=== PATIENT | male | born 1960 | race Caucasian/White ===

== ENCOUNTER 2017-10-18 16:52 | Emergency (ER) | payer OTHER, SELFPAY ==
[2017-10-18 16:57] VITALS: BP 164/92; PULSE 59; RESP 18; O2SAT 97
--- NOTE | 2017-10-18 17:08 | DI.CT.S_ITS ---
PROCEDURE: CT HEAD/BRAIN WO CON INDICATIONS: one day right homonymous hemianopia TECHNIQUE: Noncontrast 4.5 mm thick angled axial sections acquired from the foramen magnum to the vertex, with coronal and sagittal reformats. For radiation dose reduction, the following was used: automated exposure control, adjustment of mA and/or kV according to patient size. COMPARISON: None. FINDINGS: Image quality: Excellent. CSF spaces: Basal cisterns are patent. No extra-axial fluid collections. Ventricles are normal in size and shape. Brain: No intracranial hemorrhage, mass, or mass effect. Mayers-white matter interface is preserved. No discrete suprasellar mass identified. Skull and face: Calvarium and visualized facial bones are intact, without suspicious lesions. The globes appear intact and symmetric with the orbits. No intraorbital mass lesions or fluid collections identified. Sinuses: Visualized sinuses and mastoids are clear. IMPRESSION: 1. No acute intracranial abnormality. 2. No definite mass identified within orbits or suprasellar regions. If clinical concern persists, further evaluation may be obtained with MRI. Dictated by: Naif Bailon M.D. on 10/18/2017 at 17:34 Approved by: Naif Bailon M.D. on 10/18/2017 at 17:37
--- NOTE | 2017-10-18 17:28 | PC.NURSE ---
Yesterday at approx 0730 pt experienced daniel spot in right eye. It has been intermittent since. x2 today,more of black area in right eye. Pt saw eye doctor and was told everything was fine with his eyes and he should go to the ED.
[2017-10-18 17:46] LABS: Add Manual Diff / Slide Review NO; Basophils Percent Auto 0.7 % (0-2); Hematocrit 42.9 % (41-53); Hemoglobin 14.7 g/dL (13.5-17.5); Lymphocytes Percent Auto 39.7 % (25-40); Mean Corpuscular HGB Conc 34.2 % (30-36); Mean Corpuscular Volume 93.6 fL (80-100); Monocytes Percent Auto 8.5 % (3-14); Neutrophils Absolute Auto 3900 /uL (3000-5900); Neutrophils Percent Auto 47.1 % (50-75); Platelet Count 232 X10^3/uL (150-400); Red Blood Cell Count 4.59 X10^6/uL (4.5-5.9); Red Cell Distribution Width 13.2 % (11.6-14.8); White Blood Cell Count 8.3 X10^3/uL (4.5-11.0)
[2017-10-18 17:57] LABS: Blood Urea Nitrogen 22 mg/dL (9-20); Calcium 9.4 mg/dL (8.4-10.2); Carbon Dioxide 26 mmol/L (22-32); Chloride 101 mmol/L (98-107); Estimated Glomerular Filt Rate > 60.0 mL/min (>60); Glucose 85 mg/dL (70-100); HEMOLYSIS 18 (0-50); Potassium 3.9 mmol/L (3.4-5.1); Sodium 141 mmol/L (137-145)
[2017-10-18 17:58] VITALS: BP 135/75; PULSE 54; RESP 21; O2SAT 98
--- NOTE | 2017-10-18 18:16 | ED.NEUROSD ---
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 Yesterday at about 7 in the morning the patient was out jogging and developed some right lateral visual field deficit. He states that his peripheral vision on the right side was compromised. He denies double vision or speech trouble. He denies any other focal neurologic findings such as facial weakness, numbness or tingling nor extremity weakness. Related Data Home Medications Medication Instructions Recorded Confirmed adalimumab [Humira Pen] 1 dose SUB-Q Q2W 10/18/17 10/18/17 betamethasone dipropionate 1 applic TOPICAL DIRECTED 10/18/17 10/18/17 Allergies Allergy/AdvReac Type Severity Reaction Status Date / Time No Known Drug Allergies Allergy Verified 10/18/17 16:57 Review of Systems Review of Systems All systems reviewed & are unremarkable except as noted in HPI and below Constitutional Denies chills, Denies fever(s), Denies lethargy and Denies weakness Eyes Denies change in vision, Denies eye discharge, Denies irritation, Reports loss of peripheral vision, Denies loss of vision and Reports other visual disturbances ENT Ears, Nose, Mouth, and Throat: Denies abnormal hearing, Denies change in voice, Denies neck pain and Denies sore throat Cardiovascular Denies chest pain, Denies irregular heart rhythm, Denies lightheadedness, Denies palpitations, Denies dyspnea, Denies dyspnea on exertion and Denies orthopnea Respiratory Denies cough, Denies dyspnea, Denies dyspnea on exertion and Denies wheezing Gastrointestinal Gastrointestinal: Denies abdominal pain, Denies change in bowel habits, Denies diarrhea, Denies nausea and Denies vomiting Genitourinary Denies hematuria, Denies flank pain, Denies urinary incontinence and Denies urinary urgency Musculoskeletal Denies neck pain Integumentary/Breasts Denies pruritus, Denies erythema, Denies rash and Denies wounds Neurologic Denies abnormal hearing, Denies abnormal movements, Denies confusion, Denies loss of vision, Denies convulsions, Denies seizure-like activity, Denies sensory deficit and Denies weakness Psychiatric Denies anxiety, Denies confusion, Denies depression, Denies homicidal ideation and Denies suicidal ideation Endocrine Denies palpitations Hematologic/Lymphatic Denies easy bruising Allergic/Immunologic Denies wheezing Exam Initial Vital Signs Initial Vital Signs: Vital Signs Pulse Rate 59 L 10/18/17 16:57 Respiratory Rate 18 10/18/17 16:57 Blood Pressure 164/92 H 10/18/17 16:57 Pulse Oximetry 97 10/18/17 16:57 Const General: cooperative and well developed Nutritional Appearance: well nourished Orientation: alert, awake, oriented x3 and not confused [facility] Head: normocephalic and atraumatic Ears: external ears normal and TM's normal bilaterally Nose: external nose normal and No nasal discharge Face and sinus: sinuses nontender, face symmetric, no sinus tenderness and No dry mucous membranes Mouth: oral mucosae normal and moist mucous membranes Teeth and gingiva: dentition normal Throat: tonsils normal and uvula midline Eyes General: appearance normal, both eyes and all related structures Eyelids: eyelids normal Conjunctivae: conjunctivae normal Sclera: sclerae normal Pupils: PERRL EOM: EOM intact bilaterally Neck Neck: normal visual inspection, trachea midline, No lymphadenopathy, No midline deformity and No JVD Lymphatic: No lymphedema Chest Chest: normal inspection of the chest Resp Effort & Inspection: normal respiratory effort, able to speak in complete sentences, no respiratory distress and no use of accessory muscles Auscultation: clear to auscultation bilaterally, no rales, no rhonchi and no wheezes Cardio Rate: regular rate Rhythm: regular rhythm Heart Sounds: no click, no gallops, no murmurs and no rubs Pulses: normal peripheral pulses GI Inspection: non-distended Palpation: soft, no hepatosplenomegaly, No guarding, No pulsatile mass and No tender Auscultation: normal bowel sounds Back/Spine/Pelvis Back: No CVA tenderness Cervical Spine: cervical ROM normal and No pain with cervical ROM Thoracic/Lumbar Spine: thoracic and lumbar spine normal to inspection Skin General: no rashes or lesions noted, No jaundice and No petechiae Neuro General: alert, oriented x3, gait normal and no focal motor deficits Cranial Nerves: CN's II-XI intact bilaterally Speech: speech normal Gait: normal gait Motor: muscle tone normal throughout Sensory Exam: no sensory deficits noted Extrem General: full ROM, no clubbing, cyanosis or edema, no pedal edema and no calf tenderness Psych Appearance: well kempt Mental Status: mental status grossly normal Attitude: cooperative Thought Content: normal and suicidality Judgment: judgment good Scores NIH Stroke Scale Level of Conciousness: Alert, keenly responsive Ask month/age: Answers both questions correctly. Open/close eyes, close hand: Performs both tasks correctly Best gaze horizontal: Normal Visual yeager: No visual loss Facial palsy: Normal symetrical movement Left arm drift: No drift for full 10 sec Right arm drift: No drift for full 10 sec Left leg drift: No drift for full 10 sec Right leg drift: No drift for full 10 sec Limb ataxia: Absent Sensory on face/arms/legs: Normal, no sensory loss Best language: No aphasia, normal Dysarthria: Normal Extinction or inattention: No abnormality Total NIH Stroke scale score: 0 Course Orders Ordered: ED Orders 10/18/17 17:08 CT head/brain wo con Stat 10/18/17 17:09 EKG-12 Lead Stat 10/18/17 17:30 Basic Metabolic Panel Stat Complete Blood Count AUTO DIFF Stat Troponin I Stat 10/18/17 18:45 MR stroke Stat Discontinued Medications Aspirin (Aspirin Chew) 324 mg PO NOW ONE Stop: 10/18/17 19:59 Last Admin: 10/18/17 20:05 Dose: 324 mg Reevaluation(s) Reevaluation #1: Patient remains asymptomatic Time: 20:34 Consultations Consultation #1: Discussed with on-call provider for the patient's primary care and we sure the opinion that given the patient's low risk factors and no ongoing symptoms, if we can achieve the full stroke protocol MRI and is normal then we can safely discharge follow-up very closely. Dr. sifuentes assures me she can't get him in the next day or 2. We will stress aspirin daily Time: 20:34 Vital Signs - 8 hr 10/18/17 18:47 10/18/17 19:00 10/18/17 20:03 Pulse Rate 57 L 57 L 59 L Respiratory Rate 17 19 17 Blood Pressure [Right Arm] 142/87 H 139/89 H 133/74 H Pulse Oximetry 57 L 98 97 10/18/17 20:37 Pulse Rate 60 Respiratory Rate 14 Blood Pressure [Right Arm] 121/75 H Pulse Oximetry 99 MDM - Neuro Symptoms/Deficit Differential Diagnosis Likely subarachnoid hemorrhage, peripheral neuropathy, cerebrovascular accident and transient cerebral ischemia Medical Records Attestation: I reviewed the patient's medical records. Lab Data Attestation: I reviewed the patient's lab results. Result diagrams: 10/18/17 17:30 10/18/17 17:30 Lab Results 10/18/17 10/18/17 Range/Units 17:30 17:30 WBC 8.3 (4.5-11.0) X10^3/uL RBC 4.59 (4.5-5.9) X10^6/uL Hgb 14.7 (13.5-17.5) g/dL Hct 42.9 (41-53) % MCV 93.6 (80-100) fL MCH 32.0 (26-34) PG MCHC 34.2 (30-36) % RDW 13.2 (11.6-14.8) % Plt Count 232 (150-400) X10^3/uL Neut % (Auto) 47.1 L (50-75) % Lymph % (Auto) 39.7 (25-40) % [place] % (Auto) 8.5 (3-14) % Eos % (Auto) 4.0 (2-4) % Baso % (Auto) 0.7 (0-2) % Neut # (Auto) 3900 (9942-9328) /uL Sodium 141 (137-145) mmol/L Potassium 3.9 (3.4-5.1) mmol/L Chloride 101 (98-107) mmol/L Carbon Dioxide 26 (22-32) mmol/L BUN 22 H (9-20) mg/dL Creatinine 1.00 (0.66-1.25) mg/dL Estimated GFR > 60.0 (>60) mL/min BUN/Creatinine Ratio 22.0 (6-22) Glucose 85 (70-100) mg/dL Calcium 9.4 (8.4-10.2) mg/dL Troponin I < 0.012 (0.01-0.034) ng/mL Imaging Data MRI - head: Radiologist's impression: PROCEDURE: MR STROKE Pre- and post-contrast brain MRI, non-contrast brain MR angiogram, pre- and postcontrast neck MR angiogram INDICATIONS: stroke symptoms-right homonymous hemianopsia. TECHNIQUE: Brain: Noncontrast axial T1 spin echo, axial T2 fast spin echo, sagittal and axial FLAIR, coronal T2 fast spin echo, axial gradient echo, axial diffusion and ADC through the brain. After the administration of contrast, axial 3D VIBE of the cranial vasculature and brain. Brain MRA: Non-contrast 3-D time of flight MR angiogram, with multiple quwbulb-wdcmqkjzr-hdadputgje (MIP) reformats performed. Neck MRA: Axial and sagittal TruFISP through the neck. Coronal dynamic MR angiogram during administration of contrast in the arterial and venous phases, with 3-dimenstional olmlsvq-myhaplcad-vrcookdzuu (MIP) reformats constructed from subtraction images. COMPARISON: [facility], CT, CT HEAD/BRAIN WO CON, 10/18/2017, 17:05. FINDINGS: Image quality: Excellent. BRAIN: CSF spaces: There is mild cerebral volume loss with prominence of the ventricles and sulci. Basal cisterns are patent. No extra-axial fluid collections. Brain: Diffusion weighted images demonstrate no acute infarcts. No intracranial hemorrhage, mass, or mass effect. There are a few subcortical and periventricular foci of white matter T2 hyperintensity consistent with mild chronic small vessel ischemic changes. Brainstem appears normal. Normal intravascular flow voids are present. No abnormal intracranial enhancement. No sellar or suprasellar mass identified. Skull and face: Calvarial marrow signal is normal. Orbits appear within normal limits. The globes appear intact. No intraorbital mass or fluid collections. The extraocular muscles appear symmetric and normal in size. Sinuses: Sinuses and mastoids are clear. BRAIN MR ANGIOGRAM: Anterior circulation: Intracranial internal carotid arteries are normal in size and patent bilaterally. The flow within the paired anterior cerebral arteries is symmetric and patent bilaterally. The flow within the middle cerebral arteries is symmetric and patent bilaterally. The anterior communicating artery is patent. No high-grade stenoses, occlusions, or aneurysms. Posterior circulation: The visualized portions of the vertebral arteries are patent and join to form a patent basilar artery. The flow within the posterior cerebral arteries is symmetric and patent bilaterally. No high-grade stenoses, occlusions, or aneurysms. NECK MR ANGIOGRAM: Carotids: Great vessels demonstrate conventional anatomy as they arise from the aortic arch. The origins of the common carotid arteries appear patent. The calibers and courses of both common carotid arteries are normal. The carotid bulbs appear widely patent. The internal carotid arteries demonstrate normal course and caliber. Posterior circulation: The origins of the vertebral arteries appear patent. More superior portions of both vertebral arteries demonstrate normal course and caliber, and join to form a normal appearing basilar artery. Miscellaneous: Subclavian arteries appear patent. Pre-contrast images through the neck demonstrate no soft tissue abnormalities. IMPRESSION: BRAIN MRI: 1. No evidence of infarct or other acute intracranial abnormality. 2. No sellar or suprasellar mass lesion. BRAIN MR ANGIOGRAM: 1. No high-grade stenosis or occlusion of the central intracranial arteries. NECK MR ANGIOGRAM: 1. No high-grade stenosis or occlusion of the head and neck arteries. The carotid bulbs appear widely patent. Dictated by: Naif Bailon M.D. on 10/18/2017 at 20:17 Approved by: Naif Bailon M.D. on 10/18/2017 at 20:25 MDM Narrative Medical decision making narrative: Patient has isolated vision disturbance and denies any other focal neurologic findings. He has low risk, denying hypertension, hyperlipidemia, diabetes, or history of smoking. He has NIH stroke scale of 0, normal MRI/MRA of head and neck and close follow-up with primary care provider Discharge Plan Departure Patient Disposition: Home, Self-Care Clinical Impression: Brain TIA Discharge Date/Time: 10/18/17 20:50 Interventions: ED Discharge Assessment Last Done: 10/18/17 20:49 Instructions: DI for Transient Ischemic Attack Activity Restrictions/Additional Instructions: *You have been diagnosed with [ transient ischemic attack ] *What to do: * continue to take medications as directed. Take baby Aspirin 81mg PO daily *Follow up with your primary care provider THA, call in the morning for appointment *Return to ER if you should have any new, worsening or concerning symptoms Prescriptions: No Action betamethasone dipropionate 0.05 % cream 1 applic Topical DIRECTED RF: 0 adalimumab [Humira Pen] 40 mg/0.8 mL pen injector kit 1 dose Sub-Q Q2W RF: 0 Referrals: Apolinar Elise MD [Primary Care Provider] -
[2017-10-18 18:22] LABS: Troponin I < 0.012 ng/mL (0.01-0.034)
--- NOTE | 2017-10-18 18:45 | DI.MRI.S_ITS ---
PROCEDURE: MR STROKE Pre- and post-contrast brain MRI, non-contrast brain MR angiogram, pre- and postcontrast neck MR angiogram INDICATIONS: stroke symptoms-right homonymous hemianopsia. TECHNIQUE: Brain: Noncontrast axial T1 spin echo, axial T2 fast spin echo, sagittal and axial FLAIR, coronal T2 fast spin echo, axial gradient echo, axial diffusion and ADC through the brain. After the administration of contrast, axial 3D VIBE of the cranial vasculature and brain. Brain MRA: Non-contrast 3-D time of flight MR angiogram, with multiple ovxoayu-zmyqqffwu-jqvweiuyok (MIP) reformats performed. Neck MRA: Axial and sagittal TruFISP through the neck. Coronal dynamic MR angiogram during administration of contrast in the arterial and venous phases, with 3-dimenstional jyvxims-ufizeauxj-wgafwczhqc (MIP) reformats constructed from subtraction images. COMPARISON: [facility], CT, CT HEAD/BRAIN WO CON, 10/18/2017, 17:05. FINDINGS: Image quality: Excellent. BRAIN: CSF spaces: There is mild cerebral volume loss with prominence of the ventricles and sulci. Basal cisterns are patent. No extra-axial fluid collections. Brain: Diffusion weighted images demonstrate no acute infarcts. No intracranial hemorrhage, mass, or mass effect. There are a few subcortical and periventricular foci of white matter T2 hyperintensity consistent with mild chronic small vessel ischemic changes. Brainstem appears normal. Normal intravascular flow voids are present. No abnormal intracranial enhancement. No sellar or suprasellar mass identified. Skull and face: Calvarial marrow signal is normal. Orbits appear within normal limits. The globes appear intact. No intraorbital mass or fluid collections. The extraocular muscles appear symmetric and normal in size. Sinuses: Sinuses and mastoids are clear. BRAIN MR ANGIOGRAM: Anterior circulation: Intracranial internal carotid arteries are normal in size and patent bilaterally. The flow within the paired anterior cerebral arteries is symmetric and patent bilaterally. The flow within the middle cerebral arteries is symmetric and patent bilaterally. The anterior communicating artery is patent. No high-grade stenoses, occlusions, or aneurysms. Posterior circulation: The visualized portions of the vertebral arteries are patent and join to form a patent basilar artery. The flow within the posterior cerebral arteries is symmetric and patent bilaterally. No high-grade stenoses, occlusions, or aneurysms. NECK MR ANGIOGRAM: Carotids: Great vessels demonstrate conventional anatomy as they arise from the aortic arch. The origins of the common carotid arteries appear patent. The calibers and courses of both common carotid arteries are normal. The carotid bulbs appear widely patent. The internal carotid arteries demonstrate normal course and caliber. Posterior circulation: The origins of the vertebral arteries appear patent. More superior portions of both vertebral arteries demonstrate normal course and caliber, and join to form a normal appearing basilar artery. Miscellaneous: Subclavian arteries appear patent. Pre-contrast images through the neck demonstrate no soft tissue abnormalities. IMPRESSION: BRAIN MRI: 1. No evidence of infarct or other acute intracranial abnormality. 2. No sellar or suprasellar mass lesion. BRAIN MR ANGIOGRAM: 1. No high-grade stenosis or occlusion of the central intracranial arteries. NECK MR ANGIOGRAM: 1. No high-grade stenosis or occlusion of the head and neck arteries. The carotid bulbs appear widely patent. Dictated by: Naif Bailon M.D. on 10/18/2017 at 20:17 Approved by: Naif Bailon M.D. on 10/18/2017 at 20:25
[2017-10-18 18:47] VITALS: BP 142/87; PULSE 57; RESP 17; O2SAT 57
[2017-10-18 19:00] VITALS: BP 139/89; PULSE 57; RESP 19; O2SAT 98
[2017-10-18 20:03] VITALS: BP 133/74; PULSE 59; RESP 17; O2SAT 97
[2017-10-18] MEDS: ASPIRIN 81 MG TAB 324 MG PO (20:05)
[2017-10-18 20:37] VITALS: BP 121/75; PULSE 60; RESP 14; O2SAT 99
== END 2017-10-18 20:50 | disposition home or self-care (01) ==
PROVIDERS: Emergency Medicine; Emergency Provider Emergency Medicine; Family Provider Family Medicine; PCP Family Medicine
DX: G45.9 Transient cerebral ischemic attack, unspecified (principal)
CPT/HCPCS: 36591; 70450; 70553; 80048; 84484; 85025; 93005; 93041; 99283; 99285; 99291; A9579

== ENCOUNTER → 2017-10-26 08:09 | Outpatient (CLI) | payer OTHER, SELFPAY ==
--- NOTE | 2017-10-26 | DI.ECHO.S_ITS ---
[facility] +---------+ : : [address] : : : : [id number] : : : : Phone: [phone] Echocardiogram Report + + :Name: LUCI MARIE Study Date: 10/26/2017 Height: 69 in : :[facility] Exam Location: IS Weight: 233 lb : : Gender: Male BSA: 2.2 m2 : :: 1960 Age: 57 yrs BP: 115/90 mmHg: :Reason For Study: Hypertension : :Ordering Physician: Dr. Jiang : :Arik Performed By: Tamy Page : + + Interpretation Summary The ejection fraction is estimated to be 60-65%. The right ventricle is borderline dilated. The left atrium is moderately dilated. The ascending aorta is mild-moderately enlarged. The aortic arch is mildly enlarged. The IVC is dilated (diameter is greater than 2.1 cm) yet it collapses greater than 50% with a sniff. This suggests a right atrial pressure of 8 mm Hg. Procedure: A two-dimensional transthoracic echocardiogram with color flow and Doppler was performed. The study quality was technically adequate. There is no prior echocardiogram noted for this patient. The patient was in sinus bradycardia with heart rates between 51-61 bpm during the exam. Left Ventricle: The left ventricle is normal in size, wall thickness, and systolic function without any focal wall motion abnormalities. The ejection fraction is estimated to be 60-65%. Assessment of diastolic parameters indicates normal left ventricular diastolic function and normal filling pressures. Right Ventricle: The right ventricle is borderline dilated. The right ventricular systolic function is normal. Atria: The left atrium is moderately dilated. The right atrium is normal in size. There is no Doppler evidence for an interatrial shunt. Mitral Valve: The mitral valve leaflets appear thickened, but open well. There is trace mitral regurgitation. Aortic Valve: The aortic valve is trileaflet. The aortic valve opens well. There is trace aortic regurgitation. Tricuspid Valve: The tricuspid valve is normal in structure and function. There is a trace or physiologic amount of tricuspid regurgitation. The right ventricular systolic pressure is estimated at 30 mmHg assuming a right atrial pressure of 8 mm Hg. Pulmonic Valve: The pulmonic valve is not well visualized. There is a trace or physiologic amount of pulmonic regurgitation. Great Vessels: The aortic root is normal size. The ascending aorta is mild- moderately enlarged. The aortic arch is mildly enlarged. The pulmonary artery is not well visualized, but is probably normal size. The IVC is dilated (diameter is greater than 2.1 cm) yet it collapses greater than 50% with a sniff. This suggests a right atrial pressure of 8 mm Hg. Pericardium/ Pleura There is no pericardial effusion. There is no pleural effusion. MMode/2D Measurements & Calculations LVIDd: 5.4 cm LVOT diam: 2.3 cm LVIDs: 3.4 cm Ao root diam: 3.4 cm FS: 37.6 % asc Aorta Diam: 4.1 cm EPSS: 0.21 cm Ao Arch Diam (Prox Trans): 3.4 cm IVSd: 0.93 cm LVPWd: 0.82 cm LV rush. diameter/BSA (cm/m^2): 2.5 LV sys. diameter/BSA (cm/m^2): 1.5 LA A2 area: 26.9 cm2 RA long axis: 5.8 cm LA A4 area: 23.5 cm2 RA area: 20.6 cm2 LA length (vol): 5.5 cm RA vol: 62.2 ml LA vol: 97.6 ml RA : 28.2 ml/m2 LA vol index: 44.3 ml/m2 IVC diam: 2.7 cm RVD1 (basal): 4.2 cm Doppler Measurements & Calculations Ao V2 max: 154.8 cm/sec LVOT Max Benjamin: 97.4 cm/sec Ao V2 mean: 108.4 cm/sec LV V1 max P.8 mmHg Ao max P.6 mmHg LV V1 VTI: 21.0 cm Ao mean P.3 mmHg ANISH(I,D): 2.7 cm2 Ao V2 VTI: 33.1 cm ANISH(V,D): 2.6 cm2 sev ratio: 0.64 NAISH indexed to BSA (cm^2/m^2): 1.2 MV E max benjamin: 80.8 cm/sec TR max benjamin: 232.7 cm/sec MV A max benjamin: 61.4 cm/sec TR max P.7 mmHg MV E/A: 1.3 PA V2 max: 90.3 cm/sec Med Peak E' Benjamin: 10.4 cm/sec PA V2 mean: 62.9 cm/sec E/E' med: 7.8 PA mean P.7 mmHg Lat Peak E' Benjamin: 11.8 cm/sec PA Accel Time: 0.13 sec E/E' lat: 6.9 E/e' average: 7.3 MV dec time: 0.24 sec MV P1/2t: 70.3 msec MV 2t max benjamin: 79.8 cm/sec MVA(2t): 3.1 cm2 Reading Physician:12:50 PM
== END ==
PROVIDERS: PCP Family Medicine; Visit Provider Family Medicine
DX: I10 Essential (primary) hypertension (principal)
CPT/HCPCS: 93306

== ENCOUNTER → 2018-10-23 07:05 | Outpatient (CLI) | payer OTHER, SELFPAY ==
[2018-10-23 08:27] LABS: Add Manual Diff / Slide Review NO; Basophils Absolute Auto 0 /uL (0-100); Basophils Percent Auto 0.8 % (0-2); Eosinophils Absolute Auto 300 /uL (0-450); Eosinophils Percent Auto 5.4 % (2-4); Hematocrit 44.3 % (41-53); Hemoglobin 15.2 g/dL (13.5-17.5); Lymphocytes Absolute Auto 2900 /uL (1100-4500); Mean Corpuscular HGB Conc 34.3 % (30-36); Mean Corpuscular Hemoglobin 31.9 PG (26-34); Mean Corpuscular Volume 92.8 fL (80-100); Monocytes Absolute Auto 500 /uL (0-900); Monocytes Percent Auto 7.4 % (3-14); Neutrophils Absolute Auto 2700 /uL (1500-7000); Neutrophils Percent Auto 41.4 % (50-75); Platelet Count 237 X10^3/uL (150-400); Red Blood Cell Count 4.78 X10^6/uL (4.5-5.9); Red Cell Distribution Width 13.4 % (11.6-14.8); White Blood Cell Count 6.4 X10^3/uL (4.5-11.0)
[2018-10-23 08:49] LABS: Alanine Aminotransferase 21 IU/L (21-72); Albumin 4.3 g/dL (3.5-5.0); Albumin Globulin Ratio 1.3 (1.0-2.8); Alkaline Phosphatase 53 U/L (38-126); Aspartate Aminotransferase 34 IU/L (17-59); Bilirubin Total 0.7 mg/dL (0.2-1.3); Blood Urea Nitrogen 18 mg/dL (9-20); Calcium 9.5 mg/dL (8.4-10.2); Carbon Dioxide 31 mmol/L (22-32); Chloride 101 mmol/L (98-107); Estimated Glomerular Filt Rate > 60.0 mL/min (>60); Globulin 3.3 g/dL (1.7-4.1); Glucose 92 mg/dL (70-100); HEMOLYSIS < 15 (0-50); Potassium 4.8 mmol/L (3.4-5.1); Sodium 139 mmol/L (137-145); Total Protein 7.6 g/dL (6.3-8.2)
[2018-10-23 09:30] LABS: HIV 1 and 2 Antibody NEGATIVE (NEGATIVE)
[2018-10-23 17:59] LABS: Hep C Virus Ab w/Reflex Quant NEGATIVE s/c (NEGATIVE); Hepatitis B Surface Antigen NEGATIVE s/c (NEGATIVE)
== END ==
PROVIDERS: PCP Family Medicine; Visit Provider Physician Assistant
DX: L40.0 Psoriasis vulgaris (principal)
CPT/HCPCS: 36415; 80053; 85025; 86480; 86703; 86803; 87340

== ENCOUNTER 2019-02-20 12:31 | Outpatient (CLI) | payer OTHER, SELFPAY ==
[2019-02-20] VITALS (9 sets, daily range): BP systolic 120–138; BP diastolic 74–91; PULSE 53–59; RESP 16; TEMP 36.7; O2SAT 94–98
--- NOTE | 2019-02-20 12:32 | DI.RAD.S_ITS ---
PROCEDURE: PAIN L/S TRANSFORAMINAL INJECT INDICATIONS: RADICULOPATHY FINDINGS: Fluoroscopic spot filming was performed to verify placement of spinal needles at the L2 at L3 level(s), as labeled on the films. Appropriate location(s) of the needle tip(s) was confirmed by injection of iodinated contrast. IMPRESSION: Fluoroscopy for pain management. Dictated by: Ephraim Navarro M.D. on 02/20/2019 at 18:11 Approved by: Ephraim Navarro M.D. on 02/20/2019 at 18:11
[2019-02-20] MEDS: fentaNYL 100 MCG/2 ML INJ 50 MCG IV (13:43)
[2019-02-20] MEDS: MIDAZOLAM 5 MG/5 ML VIAL IV (13:49)
[2019-02-20] MEDS: BUPIVACAINE 0.25% (PF) VIAL 2 ML INJ (13:52)
[2019-02-20] MEDS: IOPAMIDOL 15 ML VIAL 3 ML INJ (13:52)
[2019-02-20] MEDS: DEXAMETHASONE 10 MG/ML VIAL 20 MG INJ (13:52)
[2019-02-20] MEDS: BETAMETHASONE 30 MG/5 ML MDV 6 MG INJ (13:52)
--- NOTE | 2019-02-20 13:57 | PC.NURSE ---
ASSISTING PT OFF TABLE AND TRANSPORTING TO POST PROC AREA IN STABLE CONDITION. PT CARE PASSED OFF TO DOMENIC Aly RN.
--- NOTE | 2019-02-20 14:01 | P.PCN_ITS ---
Procedures Date/Time Date of procedure: 02/20/19 Time of procedure: 14:01 General Procedure description: PROVIDER: Ralf Villagran DO Operative Note PREOP DIAGNOSIS 1. FORAMINAL STENOSIS WITH LE SYMPTOMS, POST OP DIAGNOSIS 1. FORAMINAL STENOSIS WITH LE SYMPTOMS, PROCEDURES 1. FLUOROSCOPICALLY GUIDED CONTRAST CONTROLLED TRANSFORAMINAL EPIDURAL STEROID INJECTION - LEFT L2/3 TFESI SURGEON: Ralf Villagran, DO INDICATIONS Yunier is referred by Dr. Elise for treatment of Foraminal Stenosis with left LE Symptoms FINDINGS Foraminal Nerve Root Compression secondary to disc disease and facet hypertrophy DESCRIPTION OF PROCEDURE Following review of allergy and review of potential side effects and complications, including, but not necessarily limited to, infection, allergic reaction, local tissue breakdown, stroke, temporary or permanent nerve injury, paralysis, and possible , the patient indicated that the patient understood and agreed to proceed. An informed consent document was signed by the patient, witnessed by a nurse, and placed in the patient's chart. Additionally, other treatment options including medications, modalities, and physical therapy were reviewed with the patient. After review of previous anaesthesic history and IV conscious sedation the patient was deemed safe to proceed with todays procedure with IV conscious sedation as ASA class II designation. Safety time-out was performed to confirm patient ID, procedure to be performed and site of procedure. IV sedation was accomplished with a combination of 4mg of Versed and 50mcg of Fentanyl was administered by the RN after DO order, titrated to patient comfort during the course of the procedure while the patient remained responsive to all verbal commands In the prone position following sterile prep and drape of the lumbar region, the left L2/3 posterior neuroforamen was identified fluoroscopically. The skin was anesthetized via a 25-gauge 1.5-inch needle with 1% lidocaine solution. At this point, a 25-gauge 3.5-inch spinal needle was atraumatically introduced and advanced under fluoroscopic guidance through the posterior left L2/3 neuroforamen to approximately the anterior aspect of the canal. Depth was confirmed on lateral view. Following negative aspiration, injection of approximately 1.5 cc of Isovue 200 under live fluoroscopy in the AP view confirmed excellent flow along the nerve root, into the epidural space without vascular or intrathecal uptake observed Radiological data, including multiple fluoroscopic views of the lumbosacral spine, reveal a spinal needle at the left L2/3 posterior neuroforamen. Subsequent views show flow of contrast material flowing superiorly and inferiorly along the nerve root confirming epidural flow. Subsequently, a test dose of 1.5 cc of 1% lidocaine solution was administered a nd patient was observed for two minutes for signs or symptoms of complications, including abdominal pain, shortness of breath, bilateral upper or lower extremity weakness, nausea and vomiting, prior to steroid injection. At this point, a total of 3cc or 20mg of dexamethasone and 6mg betamethasone was injected without incident. The patient tolerated the procedure well without signs or symptoms of complications prior to transfer to the recovery area continued monitoring without incident. The patient was then transferred to the recovery area where they were observed for an appropriate time after the injection. The patient reported a VAS score of 7 prior to the procedure and a post-procedure VAS of 0. Total Fluoroscopy Time: 24.2 seconds Total Conscious Sedation Time: 24min POST OP INSTRUCTIONS The patient was provided a Pain Log to continue to record their response to the target-specific procedure prior to follow-up visit with their referring physician. Additionally, specific post-injection care instructions and a contact number to our office were provided if concerns arise regarding possible complications associated with the procedure are suspected. Ralf Villagran, Complications: none
--- NOTE | 2019-02-20 14:26 | PC.NURSE ---
Discharge note: VSs, O2 sat WNL. No complaints of pain. 0/10. Tolerating PO without nausea. IV d/c's canula intact. Able to stand independently. MIld numbness same as preop down left leg from hip to thigh. Gait steady when transfered to w/c. Discharged to home w/c to car at 1425
== END 2019-02-20 14:25 ==
LOC: RAD 12:32
PROVIDERS: Family Provider Family Medicine; PCP Family Medicine; Visit Provider Physical Medicine & Rehabilitation
DX: M48.061 Spinal stenosis, lumbar region without neurogenic claudication (principal); M51.16 Intervertebral disc disorders with radiculopathy, lumbar region
CPT/HCPCS: 64483; 99152; J0702; J1100; J2250; J3010

== ENCOUNTER → 2019-02-28 17:41 | Outpatient (CLI) | payer OTHER, SELFPAY ==
[2019-02-28 18:10] LABS: Add Manual Diff / Slide Review NO; Basophils Absolute Auto 100 /uL (0-100); Basophils Percent Auto 0.6 % (0-2); Eosinophils Absolute Auto 500 /uL (0-450); Eosinophils Percent Auto 4.8 % (2-4); Hemoglobin 15.6 g/dL (13.5-17.5); Lymphocytes Absolute Auto 3800 /uL (1100-4500); Lymphocytes Percent Auto 40.5 % (25-40); Mean Corpuscular HGB Conc 33.3 % (30-36); Mean Corpuscular Hemoglobin 31.4 PG (26-34); Mean Corpuscular Volume 94.2 fL (80-100); Monocytes Absolute Auto 800 /uL (0-900); Neutrophils Absolute Auto 4400 /uL (1500-7000); Neutrophils Percent Auto 46.1 % (50-75); Platelet Count 268 X10^3/uL (150-400); Red Blood Cell Count 4.99 X10^6/uL (4.5-5.9); White Blood Cell Count 9.5 X10^3/uL (4.5-11.0)
[2019-02-28 18:27] LABS: Alanine Aminotransferase 46 IU/L (21-72); Albumin 4.9 g/dL (3.5-5.0); Albumin Globulin Ratio 1.6 (1.0-2.8); Alkaline Phosphatase 60 U/L (38-126); Aspartate Aminotransferase 38 IU/L (17-59); BUN Creatinine Ratio 16.4 (6-22); Bilirubin Total 0.7 mg/dL (0.2-1.3); Blood Urea Nitrogen 18 mg/dL (9-20); Carbon Dioxide 28 mmol/L (22-32); Chloride 100 mmol/L (98-107); Estimated Glomerular Filt Rate > 60.0 mL/min (>60); Globulin 3.1 g/dL (1.7-4.1); Glucose 106 mg/dL (70-100); Potassium 4.6 mmol/L (3.4-5.1); Sodium 140 mmol/L (137-145)
[2019-02-28 20:06] LABS: HEMOLYSIS < 15 (0-50)
== END ==
PROVIDERS: PCP Family Medicine; Visit Provider Family Medicine
DX: M54.16 Radiculopathy, lumbar region (principal)
CPT/HCPCS: 36415; 80053; 85025

== ENCOUNTER 2019-04-17 06:09 | Inpatient (IN) | payer OTHER, SELFPAY ==
[2019-04-02 08:46] VITALS: BMI 32.3
[2019-04-17] VITALS (20 sets, daily range): BP systolic 105–151; BP diastolic 58–90; PULSE 59–101; RESP 11–20; TEMP 36.1–37.6; O2SAT 92–99; BMI 33.1
--- NOTE | 2019-04-17 | DI.RAD.S_ITS ---
PROCEDURE: XR LUMBAR SPINE 2-3V INDICATIONS: L1-L5 ANTERIOR FUSION, L5-SI POSTERIOR INTERBODY FUSION TECHNIQUE: 2 intraoperative fluoroscopic views of the lumbar spine were acquired. COMPARISON: [facility], , -SPINE 2-3 VIEWS, 02/25/2011, 12:28. FINDINGS: Intraoperative fluoroscopic images of lower lumbar spine shows right transpedicular fusion at L5-S1 level with intervertebral spacer placement. Intervertebral spacer is also noted at the visualized lumbar spine at L2-3, L3-4 and L4-5 levels. IMPRESSION: Fluoroscopy guidance was provided intraoperatively for fusion of lumbar spine. Dictated by: Binu Connor M.D. on 04/17/2019 at 14:29 Approved by: Binu Connor M.D. on 04/17/2019 at 14:31
[2019-04-17] MEDS: LACTATED RINGERS 1,000 ML 42 ML IV ×4 (07:15→13:31)
--- NOTE | 2019-04-17 07:21 | SUR.PREOP ---
pt reports has baseline numbness and tingling in bilateral lower extremities.
--- NOTE | 2019-04-17 07:29 | PM.PREOP ---
Pre-operative Note Interval Note History & Physical reviewed/Exam performed by Physician: Yes Changes to H&P: No
--- NOTE | 2019-04-17 07:39 | P.OP_ITS ---
Operative Date/Time/Diagnoses Date of procedure: 04/17/19 Time of procedure: 13:47 Pre-op diagnosis: Lumbar stenosis with radiculopathy Thoracolumbar scoliosis Post-op diagnosis: same Procedure & Clinicians Procedure: L1-2, L2-3, L3-4, L4-5 anterior interbody fusion with cages L5-S1 posterior and posterior interbody fusion with cage (TLIF) Iliac crest bone graft aspirate L5-S1 laminectomy Use of microscope Placement of epidural catheter Same procedure as scheduled: Yes Indications: [age] year old male with intractable pain from stenosis and scoliosis. They had failed conservative management and requested operative intervention. Risks and benefits of surgery were discussed and appropriate consents were obtained. Surgeon: Juanito Portillo Synthetic Soil Blocks Pulper: Sera Cleary Anesthesia Type: General Operative Notes Findings: None Closure Type: primary Specimen(s): none sent Prosthetic devices, grafts, tissues, transplants, or devices: NuVasive XLIF cages and MAS Reline screws Globus Rise cage Applied: catheter Estimated Blood Loss (mL): 30 Blood products transfused: none Procedure in detail: Patient was brought to the operating room and intubated on the table. Time-out was performed. They were then rolled over to the lateral decubitus position with the [id number]. The table was bent and they were taped down in the correct position. X-rays were taken to confirm a true AP and lateral. Preoperative antibiotics were given. The left flank was prepped and draped in standard sterile fashion. Using fluoroscopy, a 3 cm incision was made above the iliac crest. We bluntly dissected down with Metzenbaum scissors and split the 3 abdominal muscle layers. We dissected out the retroperitoneal space and using finger guidance, brought our 1st dilator down to the psoas muscle. Using neuromonitoring and fluoroscopy, we placed it through the psoas onto the L4-5 disc space in an anterior position and gradually pulled the dilator posteriorly along the disc space. We placed our guidewire and measured our depth for the retractor. We then dilated with the next 2 dilators and then placed our retractor over the dilators. Position was confirmed with fluoroscopy and the retractor was locked down to the bar. We opened up the retractor and checked with neuro monitoring. We then placed the zaki and again checked with neuro monitoring. The retractor was opened furt her and the ALL retractor was placed. An annulotomy was performed. We then performed a complete diskectomy with ring curette, pituitary, box osteotome. A Smith was advanced across the disc space under fluoroscopy to release the lateral annulus on the opposite side. We then used sequentially larger trials and confirmed under fluoroscopy. An XLIF cage was packed with Osteocell bone graft and impacted into the L4-5 disc space with fluoroscopy for the anterior fusion at this level. The wound was irrigated. The retractor was closed down. The zaki was removed. We carefully removed the retractor with direct visualization to make sure there was no neurovascular or abdominal injury. We then moved up to the L3-4 level. Again we used dilators to place our retractor. An annulotomy site were performed on the left side as well as on the contralateral side. A complete diskectomy was performed. We trialed and placed another cage packed with bone graft for the anterior fusion at L3-4. The ret ractor was removed with direct visualization. We then went up to the L2-3 level. Again we used dilators to place a retractor. Complete diskectomy with annular releases were performed. We trialed and placed another cage with bone graft for the anterior fusion at L2-3. The retractor was removed with direct visualization. We then went up to the L1-2 level. Again we used dilators to place a retractor. We broke through the osteophytes and then performed a complete diskectomy with annular releases were performed. We trialed and placed a final cage with bone graft for the anterior fusion L1-2. The retractor was removed under direct visualization. Final x-rays were taken. The muscle fascia was closed, superficial tissue was closed. The skin was closed. Sterile dressing was placed. The patient was then rolled over on the well-padded prone position on the Tai table. Using fluoroscopy for localization, a 4 cm incision was made to the right of the midline. Bovie used to split the fascia. We then percutaneously placed Jamshidi needles down the right pedicles of L5 and S1 using neural monitoring and fluoroscopy. These were swapped out over guidewires to tap and placing screw shanks. The S1 went easily. However, the Jamshidi needle required malletting to get down the pedicle. We were able to tap over this but when we tried putting the single spindle screw machine operator it got approximately 1 cm into the pedicle and would not move any further. We tried backing it up and the screw head stripped. We spent the next 45-60 minutes trying to remove the old screw. We used screw tracer was, we tried broken screw removers but could not get this out. The vice carton folder kept slipping but finally I had enough pressure on the vice provider relations coordinator that it flattened the head of the screw and this provided the surface we could turn on and we are able to back up the screw. We then tapped to the 6.5 mm same size as the screw and then the next screw went in its place at L5 without difficulty. We opened up the retractor and cleared out the lamina medially as well as the posterolateral gutter. A bur was used to decorticate the L5 transverse process and sacral ala. We brought in the microscope. A combination of high-speed bur and Kerrison rongeur were used to perform a right-sided laminectomy at L5-S1. A complete facetectomy was performed on the right-hand side to decompress the neural foramen. At the end we could trace out the exiting nerve root and this was free. We then carefully retracted the dura medially and expose the disc. Bipolar was used for hemostasis. An annulotomy was performed. We then performed a diskectomy with a combination of pituitaries, paddles, Edin, curettes. We packed the disc space with bone graft. The globus Rise cage was inserted and expanded under fluoroscopic guidance. We then packed more bone graft around this. This completed the posterior interbody portion of the TLIF. An epidural catheter was primed with 4mL of 0.5% bupivacaine, 100 mcg fentanyl, 4 mg Duramorph, 1 mg Stadol. The dura was depressed under the cephalad lamina with a ball probe and the epidural catheter was gently advanced 6 cm cephalad. The wound was copiously irrigated. A small stab incision was made over the right PSIS. A Jamshidi needle was placed through this into the pelvis and 5 mL of iliac crest bone graft were aspirated. This was mixed with our remaining bone graft and placed in the posterolateral gutter for the posterolateral portion of the fusion of the TLIF. The fascia was then closed. The epidural was then injected without resistance. The catheter was pulled and we closed more over the fascia. Vancomycin powder was placed in the wound. The superficial and skin were closed. Sterile dressing was placed. The patient was then rolled over, extubated, brought to the recovery room with no complications. Complications: none Post-operative Condition: stable Disposition: PACU Plan for aftercare: Inpatient. Up with physical therapy. Plan to return the operating room in 2 days for the posterior T10-S1 instrumented fusion.
[2019-04-17] MEDS: CEFAZOLIN 2 GM/100 ML FROZ.PIGGY IV ×4 (07:53→23:55)
--- NOTE | 2019-04-17 08:47 | SUR.OPER ---
Right lateral on padded OR table. Head on pillow, gel axillary roll, gel pad under right elbow,pillows to support left arm. Legs flexed, pillows between legs, gel pad under down leg and ankle. Multiple passes of 3 inch cloth tape across shoulder, hip, upper and lower legs to secure patient on OR table.
--- NOTE | 2019-04-17 09:36 | SUR.OPER ---
Prone on spine table, head in foam head support, padded chest and pelvic supports, gel pad at knees, lower legs supported by pillows; nipples, genitalia and toes free of pressure, arms secured on foam padded arm boards at <90 degrees abduction. Tape over blanket at thigh secured to table.
[2019-04-17] MEDS: THROMBIN (RECOMBINANT) 5,000 UNIT VIAL 5000 UNIT TOP (09:43)
[2019-04-17] MEDS: SODIUM CHLORIDE 0.9% 1,000 ML, GENTAMICIN 80 MG IRR (09:44)
[2019-04-17] MEDS: VANCOMYCIN 1,000 MG VIAL 1000 MG TOP (09:46)
[2019-04-17] MEDS: BUPIVACAINE 0.5% (PF) 4 ML, MORPHINE-PF 4 MG, BUTORPHANOL 1 MG, fentaNYL 100 MCG INJ (09:47)
[2019-04-17] MEDS: HYDROMORPHONE 2 MG INJ IV ×4 (14:06→14:38)
[2019-04-17] MEDS: hydrOXYzine 50 MG/ML INJ 25 MG IM (14:08)
[2019-04-17] MEDS: LORazepam 2 MG/ML INJ 0.5 MG IV ×2 (14:24→14:44)
--- NOTE | 2019-04-17 14:26 | SUR.PHASEI ---
Patient c/o sore throat, offered Cepacol lozenge but patient declined. Ice chips provided, patient swallowing without difficulty. Patient reported tingling down bilateral legs, more than normal.
--- NOTE | 2019-04-17 14:54 | SUR.PHASEI ---
O2 sat dropped to 80%RA while dozing, 2l NC applied. Sats 96%
--- NOTE | 2019-04-17 15:35 | SUR.PHASEI ---
Patient repositioned for comfort, then reported nausea after movement. Declined anti-nausea med or quease at this time.
[2019-04-17] MEDS: ONDANSETRON 4 MG/2 ML INJ IV (15:39)
--- NOTE | 2019-04-17 15:40 | SUR.PHASEI ---
Pt reported the nausea had not improved, agreed to anti-nausea medication
--- NOTE | 2019-04-17 15:42 | SUR.OPER ---
Prone on padded OR bed, head in foam head support, gel chest rolls, gel pad under knees, pillow under lower legs, toes free of pressure, arms secured at sides with drawsheet by . 4 inch tape secured across lower extremities.Taped shoulders in traction .Tape from shoulders to foot of bed.
--- NOTE | 2019-04-17 15:50 | SUR.PHASEI ---
Patient reported nausea improved.
--- NOTE | 2019-04-17 16:22 | SUR.PHASEI ---
Report called to Radha
[2019-04-17] MEDS: hydrOXYzine pamoate 25 MG CAPSULE PO ×2 (16:55→21:42)
[2019-04-17] MEDS: HYDROCODONE/ACET 5/325 TABLET 2 TAB PO ×2 (16:56→21:42)
[2019-04-17] MEDS: LACTATED RINGERS 1,000 ML 125 ML IV (16:56)
--- NOTE | 2019-04-17 17:01 | SUR.PHASEI ---
Patient transferred to the floor with o2 sat monitor. Report given to Radha. VS stable. Left flank and back dressing clean, dry, intact. Scant amount of pink drainage to steri-strip. IV saline locked. Pt moving BLE independently.
[2019-04-17] MEDS: CELECOXIB 200 MG CAPSULE 400 MG PO (17:02)
--- NOTE | 2019-04-17 20:07 | PC.NURSE ---
Admit/Evening SHift Note- Patient arrived to room from PACU via bed at 1630. Admission questions done, medications reviewed, home medications reviewed. Patient oriented top bed and bed controls, room, lights, phone, menu, and call zarate/TV remote. dressings to back and left flank c/d/i. damon cath patent ad set to gravity to drain. PRN pain medications given as ordered per patient request for complaints of pain at 7-8/10. Patient tolerated with no s/s ASE note. safety measures in place. bed alarm activated. call zarate and phone within reach. will continue to monitor.
[2019-04-17] MEDS: GABAPENTIN 300 MG CAPSULE 600 MG PO (21:41)
[2019-04-17] MEDS: DOCUSATE 100 MG CAPSULE PO (21:42)
[2019-04-17] MEDS: METOPROLOL ER 50 MG TABLET PO (21:42)
[2019-04-17] MEDS: AMLODIPINE 5 MG TABLET PO (21:42)
[2019-04-17] MEDS: SENNOSIDES 8.6 MG TABLET 17.2 MG PO (21:42)
--- NOTE | 2019-04-18 00:15 | PC.NURSE ---
Addendum entered by Tessy Carranza R.N. 04/18/19 05:55: Patient able to sleep past few hours. Now stating pain in back/upper legs is 6/10 but requests/medicated with 2 Vicodin to keep pain better managed. Taking in good amounts po intake so IVF infusion stopped. UOP 1975cc this shift. Addendum entered by Tessy Carranza R.N. 04/18/19 01:43: Medicated with Vicodin + Vistaril for 7/10 achy pain in back and upper legs. Original Note: Patient is alert and oriented. Breath sounds CTA with sat of 94% on oxygen per NC at 1L/min; on continuous oximetry. HRR. Denies nausea. BT present; denies flatus. Indwelling catheter is patent; urine is pale yellow, clear. Is able to move self in bed and preferring not to turn onto side. Dressing to back and left lateral hip are CDI. CMS intact. Wearing bilateral foot SCD's. States back pain is currently 4/10 and achy but is tolerable; declines ice pack. Fall risk score is moderate.
[2019-04-18] MEDS: LACTATED RINGERS 1,000 ML 125 ML IV (01:39)
[2019-04-18] MEDS: HYDROCODONE/ACET 5/325 TABLET 2 TAB PO ×6 (01:39→23:14)
[2019-04-18] MEDS: hydrOXYzine pamoate 25 MG CAPSULE PO (01:41)
[2019-04-18 05:05] VITALS: BP 113/74; PULSE 75; RESP 16; TEMP 36.7; O2SAT 96
[2019-04-18 05:34] LABS: Hematocrit 37.4 % (41-53); Hemoglobin 12.8 g/dL (13.5-17.5)
--- NOTE | 2019-04-18 07:48 | PC.NURSE ---
Day Shift- Spoke with ELMIRA Cordon, at 0745 verbal order to change SCD to bilateral feet from calf. Bilateral feet currently on pt.
--- NOTE | 2019-04-18 08:06 | PM.PNPO.1 ---
Subjective Subjective Date Patient Seen: 04/18/19 Time Patient Seen: 08:07 Interval history: He is doing well. Pain about 4/10. Legs feel good. Exam Vital Signs (past 8 hours): - 04/18/19 05:05 Temperature 98.1 F Pulse Rate 75 Respiratory Rate 16 Blood Pressure 113/74 Pulse Oximetry 96 Oxygen Delivery Method Nasal Cannula Oxygen Flow Rate 1 Const Orientation: alert and oriented x3 Back/Spine/Pelvis Other: CDI. 5/5 motor both lower extremities Objective Labs Result Diagrams: 04/18/19 05:07 Labs: Laboratory Results - last 24 hr 04/18/19 05:07 Hgb 12.8 L Hct 37.4 L Assessment & Plan Post-op Postoperative Procedures: Procedures Operation Date: 04/17/19 07:45 Actual Procedures Side Surgeon p L1-5 anterior instrumented fusion w/posterior interbody fusion at L5S1 Juanito Portillo MD He stable after his 1st stage of his front back scoliosis fusion. Plan for return to the operating room tomorrow for the posterior instrumented fusion from T10 through S1. Mobilize as tolerated today. Operation Date: 04/19/19 07:45 <No data on this case meets the specified criteria> Quality VTE Deep Vein Thrombosis/Pulmonary Embolism Present on Admission: No
[2019-04-18] MEDS: CELECOXIB 200 MG CAPSULE PO ×2 (08:14→20:59)
[2019-04-18] MEDS: SODIUM CHLORIDE 0.9% FLUSH 10 ML IV ×2 (08:14→20:59)
[2019-04-18] MEDS: DOCUSATE 100 MG CAPSULE PO ×2 (08:14→20:59)
[2019-04-18 08:30] VITALS: BP 105/58; PULSE 68; RESP 16; TEMP 36.5; O2SAT 95
--- NOTE | 2019-04-18 08:59 | CM.DANOTE ---
DCP Assessment: EMR reviewed: Patient is a 58 yr old male who was admitted for a two part spinal fusion surgery.Preformed by Dr Portillo. Patients PCP is Dr. Elise. CM/RN met with patient at the bedside and explained role. Patient was alert and oriented x3 at time of CM/RN visit. patient currently lives with his Yulia and his 18 yr old son. Patient is I at baseline with all ADL's and drives his own personal vehicle. Patient had his first part of his two part surgery yesterday 04/17/2019 and will have the second part done this afternoon. Patient was in good spirits and stated he wasn't in pain at time of visit. No PT evaluations done yet most likely not until after patients second surgery. Patient has a f/u post surgery appointment set up with Dr. Kelly office for two weeks from tomorrow 04/19/2019. I: [address] self pay. Plan: D/C home with spouse when medically stable. No identified D/C planning needs noted at this time. CM department will follow to help with any D/C planning needs that might arise. Tammy Jaime RN Discharge Planning/Care Management Advanced directive, confirm from FAMILY Start: 04/17/19 17:49 Freq: Q24H Status: Active Protocol: Document 04/17/19 17:49 AGW (Rec: 04/17/19 20:01 AGW [id number]) Advance Directive, confirm on record Time 18:30 Person contacted spouse Copy received No CM Discharge Assessment Start: 04/18/19 08:58 Freq: Status: Active Protocol: Document 04/18/19 08:58 HS (Rec: 04/18/19 08:59 HS [id number]) Discharge Planning Assessment Assigned Shape Carver Tammy Jaime RN DPOA/Assigned Designee Name Yulia Leiva () Contact Information [phone] Advance Directives? Yes Advance Directives on File No History Provided By Patient Has Patient been admitted in last 30 No days? Prior Living Arrangements House Household Members spouse,children Type of transporation used prior to Drives own vehicle admit Independent with ADL's Yes Is patient alert and oriented? Yes Caregiver for Another No: Patient does have an 18yr old son but he is independent DME Already Rented / Owned Cane Discharge Plan Home Referrals Initiated None needed Whiteboard Updated in Patient Room with Yes name and ext. # of Shape Carver Review Status In Process Next Review Type Continued Stay Review Pre-Anesthesia Assessment Start: 04/02/19 08:46 Freq: Status: Complete Protocol: Document 04/02/19 08:46 CAB (Rec: 04/02/19 09:40 CAB [id number]) Pre-Anesthesia Assessment PAC Comment Surgery 1 of 2 Preferred Name Scott Patient Information Reviewed Via Phone Assessment Assessment Completed With Patient Diagnostic Results BMP/CMP,CBC,EKG Comment Outside labs/EKG scanned to record Primary Care Provider Apolinar Elise Medical Clearance Received Yes Seen Specialist in Last 12 Months Yes Specialist Seen Recycle Coordinator,Orthopedist Comment PCP pre-op clearance 02/28/19 scanned to record Primary Language [place] Dispatcher Required No Height 177.8 cm Weight 102.058 kg Body Mass Index (BMI) 32.3 Hearing Ability Normal Visual Assist Magnifying Glass Dentition Type Teeth, Natural Present Barriers to Learning None Other Aids No Hx Anesthesia Reactions No Hx Family Anesthesia Reaction No Hx Malignant Hyperthermia No Hx Blood Transfusions No Anesthesia Review Requested No alcohol intake current alcohol intake frequency 0-2 drinks per day Smoking Status Current some day smoker Tobacco type cigars Substance Use Type does not use Pain Present Pain Reported Musculoskeletal Symptoms Back Pain,Difficulty Walking, Muscle Weakness,Numbness, Tingling History of Falling (Recent or History of No ) Patient is completely paralyzed or No completely immobile Mental Status Oriented to own ability Is patient on oxygen? No Does patient have CHANEY/SOB No Hx Sleep Apnea No Currently Taking a Beta Haley Yes: Metoprolol Can You Climb a Flight of Stairs Without Yes SOB Hx Chest Pain No Hx SOB Yes: Resolved with medication changes Hx Syncope or Dizziness No Anti-Coagulant Therapy No Has a Recycle Coordinator Yes: Dr. Rai-01/24/18, Dr. Rios 02/23/18 Cardiac Testing Yes: Echo 10/26/17-EF 60-65%, Stress 01/04/18-wnl Hx Pacemaker/ICD No Pacemaker Rep Required? No Cardiac Clearance Received Not Applicable Comment Cardiac records scanned to record Diet Type At Home Regular dysphagia No Urinary Catheter Present No Hx Urinary Self Catheterization No Diabetes No Hx Drug Resistant Organism No Presence of External or Internal Medical No Devices Have you traveled outside the [facility] in the last 30 days? Marital Status Lives With spouse,children Prior Living Arrangements House Number of Floors (Floors) Two Floors Support System Child/Children,Spouse Does the Patient Have Assistance After Yes Surgery Patient Discharge Plan Description Return Home Comment Pt advised 5-6 day length of stay per surgery. Nohemi 1 of 2 Feels Safe in Current Environment Yes Been Physically Hurt or Threatened By a No Person in Current Environment Do you have thoughts of harming yourself None or others? Are you currently considering suicide? No Do you have a plan to hurt yourself or No Plan others? Do You Have Any Spiritual Beliefs That No May Affect Your HC Choices? Do You Have Any Cultural Practices That No May Affect Your HC Choices? Who Can We Speak to About Patient's Care Family, friends Identifying Code for Release of Patient Declines to issue Information Health Care Proxy/Next of Kin Yulia () Health Care Proxy Emergency Contact Name Yulia () Emergency Contact Advance Directives? Yes Advance Directives on File No Requested Patient Bring Advanced Yes Directives DOS Power of Visual Manager Yes Power of Visual Manager Name Yulia () Power of Visual Manager PAC Instructions Durable medical equipment, Medications to take/avoid, Nasal antibiotic,No ETOH/ petroleum product on skin DOS, Post-op transportation,Pre- surgical wash,Sturdy shoes/ comfortable clothes,Do not bring valuables and remove jewelry
--- NOTE | 2019-04-18 10:25 | PT.IIE ---
Current Diagnoses Other forms of scoliosis, lumbar region (04/17/19) Spinal stenosis, lumbar region with neurogenic claudication (04/17/19) Surgery Performed Operation Date: 04/17/19 07:45 Actual Procedures p L1-5 anterior instrumented fusion w/posterior interbody fusion at L5S1 - Juanito Portillo MD Operation Date: 04/19/19 07:45 <No data on this case meets the specified criteria> Surgical History (Last Updated 04/02/19 @ 09:15 by Vy New RN) H/O vasectomy (Acute) History of uvulopalatopharyngoplasty (Acute) Hx of arthroscopy of left knee (Acute) Hx of arthroscopy of right knee (Acute) Hx of elbow surgery (Acute) Hx of shoulder surgery (Acute) Hx of sinus surgery (Acute) Medical History (Last Updated 04/02/19 @ 09:15 by Vy New RN) Colon polyps (Acute) Fatigue (Acute) HLD (hyperlipidemia) (Acute) HTN (hypertension) (Acute) Lumbar radiculopathy (Acute) Ocular migraine (Acute) Osteoarthritis (Acute) Psoriasis, guttate (Acute) Raynaud's syndrome (Acute) Right atrial dilation (Acute) Right ventricular dilation (Acute) Sinus bradycardia (Acute) Physical Therapy Inpatient Evaluation/Re-Eval M1 PT/OT-IP Prior Functional Status Start: 04/18/19 11:50 Freq: NEEDED Status: Active Protocol: Document 04/18/19 10:25 AB (Rec: 04/18/19 12:16 AB [id number]) Medical Review Prior Functional Status Medical History Reviewed Yes Communication able to make needs known Mobility and Gait pt stated that he is independent with all mobilities and ambulation without AD Social History Household Members spouse,children Living Arrangements House Number of Floors (Floors) Two Floors Number of Stairs To Enter/Railing? 2 steps to enter without rails 5+landing+ 4 steps with L rail ascending to bedroom level but pt state that he may stay on the main level and he will sleep on his recliner. 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 M2 PT-IP Current Condition Start: 04/18/19 11:50 Freq: NEEDED Status: Active Protocol: Document 04/18/19 10:25 AB (Rec: 04/18/19 12:16 AB [id number]) Physical Therapy Current Condition Current Condition Evaluation Date 04/18/19 Treatment Diagnosis s/p L1-5 ant fusion; L5S1 post fusion/lami; difficulty in walking Onset Date 04/17/19 Precautions Lumbar Precautions Log Roll,No Twisting,Limit Bending,Lifting Restriction of 10 lbs,Gait Belt above Incisional Area M3 PT-IP Subjective Start: 04/18/19 11:50 Freq: NEEDED Status: Active Protocol: Document 04/18/19 10:25 AB (Rec: 04/18/19 12:16 AB [id number]) Subjective Physical Therapy Visit Type Type Initial Evaluation Visit Start Time 10:25 Visit Stop Time 10:50 Total Visit Minutes 25 Notes pt underwent part 1 of a 2 part surgery and will undergo another back surgery tomorrow. Number of SUBSTITUTE TEACHER Visits 0 Physical Therapy Visit Comments Patient Comments pt agreeable to do PT Therapy Pain Assessment Pain When Pain Assessed At Rest Pain Present Pain Present Pain Reported Location lower back Intensity 4 Scale Used Numeric (1 - 10) Pain Management Techniques Apply Cold,Re-positioning, Timing of Activity with Medications M4 PT-IP Mobility and Gait Start: 04/18/19 11:50 Freq: NEEDED Status: Active Protocol: Document 04/18/19 10:25 AB (Rec: 04/18/19 12:16 AB [id number]) PT-Bed Mobility Assessment Rolling Type of Rolling Log Rolling Level of Assist Standby Assistance Supine to Sit Supine to Sit Standby Assistance Sit to Supine Sit to Supine Standby Assistance Scooting Scooting to Edge of Bed Standby Assistance PT-Transfer Assessment Sit to and From Stand Sit to and from Stand Contact Guard Assistance,1 Person Assistance Equipment Transfer Assistive Device Gait Belt,Front Wheeled Walker Orthotic/Prosthetic Devices or Brace: No Transfers Transfer Destination Chair Transfer Technique pt ambulated using FWW Transfer Ability Level of Assist Standby Assistance,Contact Guard Assistance,1 Person Assistance,Use of Upper Extremities Comments Mobility Comments bed mobility training: completed log roll bed mobility x 2 sets with initial cues on first rep but able to complete without cues on 2nd set. Gait Assessment Gait Gait Assistance Required: Standby Assistance,Contact Guard Assist Distance (Feet) 100 Able to Maintain Weight Bearing Status Yes During Gait Assistive Devices Assistive Device Gait Belt,Front Wheeled Walker Orthotic/Prosthetic Devices or Brace: No Factors Limiting Gait Function Factors Limiting Gait Function Decreased Activity Tolerance, Decreased Strength,Limited Range of Motion,Pain,Poor Balance Comments Gait Comments ambulated using FWW initial CGA but towards the end of ambulation only requires SBA. PT-Balance Assessment Sitting Balance and Reactions Static Sitting Balance Ability Good Dynamic Sitting Balance Ability Good Standing Balance and Reactions Static Standing Balance Ability Fair Dynamic Standing Balance Ability Fair Device Used FWW M5 PT-IP Objective Assessments Start: 04/18/19 11:50 Freq: NEEDED Status: Active Protocol: Document 04/18/19 10:25 AB (Rec: 04/18/19 12:16 AB [id number]) Orientation Orientation/Cognition Level of Alertness Alert Orientation Name,Age,Birthday,Month,Date, Year,Day of Week,Place, Situation Language Function Ability No Deficits Noted Safety Awareness Understands Safety Issues Memory Description No Deficits Noted Gross Range of Motion Lower Extremity ROM Assessment Within Functional Limits Strength Lower Extremity Strength Assessment Right Impaired Hip 3+/5 Knee 4-/5 Coordination Assessment Gross Coordination Gross Coordination WNL Sensation Assessment Sensation Gross Sensation WNL Muscle Tone Muscle Tone WNL Yes M6 PT-IP Treatment Start: 04/18/19 11:50 Freq: NEEDED Status: Active Protocol: Document 04/18/19 10:25 AB (Rec: 04/18/19 12:16 AB [id number]) Physical Therapy Treatment Education Education Provided Precautions,Weight Bearing Status,Post-Op Packet,Safety M7 PT-IP Assessment and Plan Start: 04/18/19 11:50 Freq: NEEDED Status: Active Protocol: Document 04/18/19 10:25 AB (Rec: 04/18/19 12:16 AB [id number]) PT Summary Assessment and Plan Potential Rehabilitation Potential Good Status of Condition at Evaluation Stable Summary Impairments Pain,ROM,Strength,Balance,Bed Mobility,Transfers,Gait, Activity Tolerance Assessment Summary pt just had part 1 of a 2 parts back surgery and plans to do the 2nd back surgery tomorrow. pt currently requires SBA to CGA with mobility and will need to be re-assess after next surgery to determine d/c plan. pt plans to go home and family will be able to assist him. will continue to monitor progress. Goals Bed Mobility Goal Standby Assistance Transfer Goal Standby Assistance,Front Wheeled Walker Gait Goal Standby Assistance,Front Wheel Walker Gait Distance 250 Other Goals up/down 2 steps without rails SBA up/down 10 steps L rail ascending SBA Days to Meet Goals 10 Frequency of Treatment Frequency Of Treatment Twice a Day Treatment Plan Physical Therapy Treatment Plan Bed Mobility Training,Transfer Training,Gait Training, Therapeutic Exercise,Balance Retraining,Post Op Education, Discharge Planning,Hot or Cold Pack,Neuromuscular Re-ed, Coordination Retraining,Manual Therapy Other Recommendations and Next Treatment ambulation Focus Recommendations To Nursing Amount of Assist Needed 1 Person Assist Discharge Recommendations PT Discharge Recommendations Home with Assistance Equipment Needed for Home Before FWW Discharge
--- NOTE | 2019-04-18 10:27 | OT.IP.EVAL ---
Current Diagnoses Other forms of scoliosis, lumbar region (04/17/19) Spinal stenosis, lumbar region with neurogenic claudication (04/17/19) Surgery Performed Operation Date: 04/17/19 07:45 Actual Procedures p L1-5 anterior instrumented fusion w/posterior interbody fusion at L5S1 - Juanito Portillo MD Operation Date: 04/19/19 07:45 <No data on this case meets the specified criteria> Past Medical History (Last Updated 04/02/19 @ 09:15 by Vy New RN) Colon polyps (Acute) Fatigue (Acute) HLD (hyperlipidemia) (Acute) HTN (hypertension) (Acute) Lumbar radiculopathy (Acute) Ocular migraine (Acute) Osteoarthritis (Acute) Psoriasis, guttate (Acute) Raynaud's syndrome (Acute) Right atrial dilation (Acute) Right ventricular dilation (Acute) Sinus bradycardia (Acute) Surgical History (Last Updated 04/02/19 @ 09:15 by Vy New RN) H/O vasectomy (Acute) History of uvulopalatopharyngoplasty (Acute) Hx of arthroscopy of left knee (Acute) Hx of arthroscopy of right knee (Acute) Hx of elbow surgery (Acute) Hx of shoulder surgery (Acute) Hx of sinus surgery (Acute) Occupational Therapy Inpatient Evaluation/Re-Eval M1 PT/OT-IP Prior Functional Status Start: 04/18/19 13:21 Freq: NEEDED Status: Active Protocol: Document 04/18/19 10:27 [facility] (Rec: 04/18/19 13:48 [facility] [id number]) Medical Review Prior Functional Status Medical History Reviewed Yes Communication able to make needs known Mobility and Gait pt stated that he is independent with all mobilities and ambulation without AD Activities of Daily Living and IADL's Pt states completely independent with all ADl , IADl , 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 Social History Household Members spouse,children Living Arrangements House Number of Floors (Floors) Two Floors Number of Stairs To Enter/Railing? 2 steps to enter without rails 5+landing+ 4 steps with L rail ascending to bedroom level but pt state that he may stay on the main level and he will sleep on his recliner. 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 OT-IP Current Condition Start: 04/18/19 13:21 Freq: Status: Active Protocol: Document 04/18/19 10:27 [facility] (Rec: 04/18/19 13:48 [facility] [id number]) Occupational Therapy Current Condition Current Condition Evaluation Date 04/18/19 Treatment Diagnosis S/p L5-S1 ant instr fusion with posterior interbody fusion L5-S1 Diagnosis Onset Date 04/17/19 Post Operative Precautions Lumbar Precautions Log Roll,No Twisting,Limit Bending,Lifting Restriction of 10 lbs,Gait Belt above Incisional Area Weight Bearing Status Weight Bearing Status Weight Bear as Tolerated M3 OT- IP Subjective and Pain Start: 04/18/19 13:21 Freq: Status: Active Protocol: Document 04/18/19 10:27 [facility] (Rec: 04/18/19 13:48 [facility] [id number]) OT- Subjective Occupational Therapy Visit Type Type Initial Evaluation Visit Start Time 10:27 Visit Stop Time 11:04 Total Visit Minutes 37 Occupational Therapy Visit Comments Patient Comments Pt willing to get up for OT eval. PT present for the beginning during assessment of functional mobility for pt. Patient/Caregiver Goals To go home after second back surgery. OT Pain Assessment Pain When Pain Assessed During Mobility Pain Present Pain Present Denied Pain M4 OT- IP ADL's Start: 04/18/19 13:21 Freq: Status: Active Protocol: Document 04/18/19 10:27 [facility] (Rec: 04/18/19 13:48 [facility] [id number]) OT ADL-Grooming General Evaluation Grooming Ability Standby Assistance Areas Needing Assistance Retrieving/Set-up of Grooming Items Comments OT Grooming Comments VC to keep FWW in front of him to bend at waist while spitting. OT ADL-Oral Care General Eval Oral Care Ability Independent OT ADL-Dressing General Eval Lower Body Dressing Ability Standby Assistance,Maximum Assistance Areas Needing Assistance Socks Comments OT Dressing Comments Began education for LB dressing needs and pt able to use senior web services developer and sock aid to keith/doff socks indepedently. Pt states not sure if wanting to have LB AED. OT ADL-Toileting Comments OT Toileting Comments Pt able sit down on the toilet and reach back to simulate hygiene needs appropriately while following back precautions. Pt has a counter on the left side for bathroom on the lower floor and english on both sides for upstairs. Pending pt's mobility from second sx.may benefit from equipment. OT ADL-Bathing Comments OT Bathing Comments Not performed at this time. Once again pending how pt moves after second back sx. or if he is able to get upstairs to use his walk in shower with built in seat. Pt may possible need a shower chair /tub bench. M5 OT- IP IADL's Start: 04/18/19 13:21 Freq: Status: Active Protocol: Document 04/18/19 10:27 [facility] (Rec: 04/18/19 13:48 [facility] [id number]) OT-Instrumental Activities of Daily Living Home Safety Awareness Ability to Problem Solve Emergency Able to Problem Solve Situations Medication Management Medication Management No Deficits Identified Money Management Money Management No Deficits Identified Meal Preparation Meal Preparation Caregiver Provides Assist Meal Preparation Comments and son to assist. Bell Attendant Bell Attendant Caregiver Provides Assist Bell Attendant Comments and son to assist. M6 OT- IP Functional Cognition Start: 04/18/19 13:21 Freq: Status: Active Protocol: Document 04/18/19 10:27 [facility] (Rec: 04/18/19 13:48 [facility] [id number]) Cognitive Factors Limiting Selfcare Function Cognitive Ability Level of Alertness Alert Patient Orientation Name,Age,Birthday,Month,Date, Year,Day of Week,Place, Situation Attention Span Ability Capable of Focused Attention, Capable of Sustained Attention Ability to Follow Commands Able to Follow One Step Commands Memory Description No Deficits Noted,Short Term Impaired Safety Awareness Underestimates Need for Assistance Cognitive Comments Cognitive Assessment Comments Pt needing initially education for back precautions, vc for FWW safety to have FWW in front of him at all times. Pt needing reminders to scoot forward first but no too far before trying to stand up. OT- Vision and Hearing OT- Hearing Assessment OT- Hearing Assessment WFL OT- Vision Assessment Visual Acuity Glasses For Reading M7 OT- IP Mobility and Balance Start: 04/18/19 13:21 Freq: Status: Active Protocol: Document 04/18/19 10:27 [facility] (Rec: 04/18/19 13:48 [facility] [id number]) OT- Bed Mobility Assessment Rolling Type of Rolling Roll to Right Level of Assistance Standby Assistance OT-Transfer Assessment Sit to and From Stand Sit to and from Stand Standby Assistance,Contact Guard Assistance Transfers Transfer Ability Standby Assistance,Contact Guard Assistance Technique Transfer Destination Bed,Chair,Toilet Transfer Technique Stand Step Pivot Devices Transfer Assistive Devices Gait Belt,Front Wheeled Walker Comments Mobility Comments Initially pt needing CGA to stand and afterwards able to do with SBA to FWW. OT- Balance Assessment Sitting Balance and Reactions Static Sitting Balance Ability Normal Dynamic Sitting Balance Ability Good Standing Balance and Reactions Static Standing Balance Ability Good M8 OT- IP Objective Assessments Start: 04/18/19 13:21 Freq: Status: Active Protocol: Document 04/18/19 10:27 [facility] (Rec: 04/18/19 13:48 [facility] [id number]) OT Gross Range of Motion Upper Extremity Range of Motion Assessment Within Functional Limits OT Strength Upper Extremity Strength Assessment Within Functional Limits OT-Muscle Tone Assessment Muscle Tone WNL Yes M9 OT- IP Assessment and Plan Start: 04/18/19 13:21 Freq: Status: Active Protocol: Document 04/18/19 10:27 [facility] (Rec: 04/18/19 13:48 [facility] [id number]) OT Summary Assessment and Plan Potential Rehabilitation Potential Good Analytic Complexity at Evaluation Low Summary OT Impairments Functional Mobility,Dressing, Toileting,Bathing,Toilet Transfers,Shower Transfers Progress Towards Goals Progressing Toward Goals Assessment Summary Pt low complexity and to have second part of his back surgery tomorrow. Pt so far doing well and needing minimal assist. Pending caregiver training and progress, recommend home with assist. Goals Grooming Goal Independent Dressing Goal Standby Assistance Toileting Goal Independent Bathing Goal Minimal Assistance Toilet Transfer Goal Standby Assistance Shower Transfer Goal Contact Guard Assistance Patient/Caregiver Education Goal Demonstrate Post-Op Precautions,Caregiver Independent Assisting Patient Days to Meet Goals 5 Frequency of Treatment Frequency Of Treatment Once a Day Treatment Plan OT Treatment Plan ADL Training,Functional Mobility,Patient/Family Education,Discharge Planning Discharge Recommendations OT Discharge Recommendations Home with Assistance Other Discharge Recommendations Pending progress and caregiver training. Home Equipment Needs To be determined after second back sx.
[2019-04-18 13:00] VITALS: BP 126/78; PULSE 60; RESP 16; TEMP 36.5; O2SAT 94
--- NOTE | 2019-04-18 13:40 | PT.IPTN ---
Current Diagnoses Other forms of scoliosis, lumbar region (04/17/19) Spinal stenosis, lumbar region with neurogenic claudication (04/17/19) Surgery Performed Operation Date: 04/17/19 07:45 Actual Procedures p L1-5 anterior instrumented fusion w/posterior interbody fusion at L5S1 - Juanito Portillo MD Operation Date: 04/19/19 07:45 <No data on this case meets the specified criteria> Physical Therapy Treatment Note M2 PT-IP Current Condition Start: 04/18/19 11:50 Freq: NEEDED Status: Active Protocol: Document 04/18/19 10:25 AB (Rec: 04/18/19 12:16 AB [id number]) Physical Therapy Current Condition Current Condition Evaluation Date 04/18/19 Treatment Diagnosis s/p L1-5 ant fusion; L5S1 post fusion/lami; difficulty in walking Onset Date 04/17/19 Precautions Lumbar Precautions Log Roll,No Twisting,Limit Bending,Lifting Restriction of 10 lbs,Gait Belt above Incisional Area M3 PT-IP Subjective Start: 04/18/19 11:50 Freq: NEEDED Status: Active Protocol: Document 04/18/19 13:40 AB (Rec: 04/18/19 14:48 AB [id number]) Subjective Physical Therapy Visit Type Type Treatment Note Visit Start Time 13:40 Visit Stop Time 14:00 Total Visit Minutes 20 Number of SPACE CONTROLLER Visits 0 Physical Therapy Visit Comments Patient Comments pt agreeable to do PT Therapy Pain Assessment Pain When Pain Assessed At Rest Pain Present Pain Present Pain Reported Location lower back Intensity 6 Scale Used Numeric (1 - 10) Pain Management Techniques Re-positioning,Timing of Activity with Medications M4 PT-IP Mobility and Gait Start: 04/18/19 11:50 Freq: NEEDED Status: Active Protocol: Document 04/18/19 13:40 AB (Rec: 04/18/19 14:48 AB [id number]) PT-Bed Mobility Assessment Rolling Type of Rolling Log Rolling Level of Assist Standby Assistance Supine to Sit Supine to Sit Standby Assistance Sit to Supine Sit to Supine Standby Assistance PT-Transfer Assessment Sit to and From Stand Sit to and from Stand Contact Guard Assistance Equipment Transfer Assistive Device Gait Belt,Front Wheeled Walker Orthotic/Prosthetic Devices or Brace: No Comments Mobility Comments pt completed bed mobility log roll supine to sit SBA and cues. stated that his epidural has worn off and has more pain this afternoon compared to this morning. completed sit to stand CGA and cues and ambulated using FWW ~ 20 ft CGA. pt requested to go back to bed stating that his pain is more. completed sit to supine SBA and cues. positioned in bed. call light and table placed within reach . Gait Assessment Gait Gait Assistance Required: Contact Guard Assist Distance (Feet) 20 Able to Maintain Weight Bearing Status Yes During Gait Assistive Devices Assistive Device Gait Belt,Front Wheeled Walker Orthotic/Prosthetic Devices or Brace: No Gait Deviations General Gait Pattern Antalgic Factors Limiting Gait Function Factors Limiting Gait Function Decreased Activity Tolerance, Decreased Strength,Limited Range of Motion,Pain,Poor Balance Comments Gait Comments pls refer to mobility section for details M5 PT-IP Objective Assessments Start: 04/18/19 11:50 Freq: NEEDED Status: Active Protocol: Document 04/18/19 10:25 AB (Rec: 04/18/19 12:16 AB [id number]) Orientation Orientation/Cognition Level of Alertness Alert Orientation Name,Age,Birthday,Month,Date, Year,Day of Week,Place, Situation Language Function Ability No Deficits Noted Safety Awareness Understands Safety Issues Memory Description No Deficits Noted Gross Range of Motion Lower Extremity ROM Assessment Within Functional Limits Strength Lower Extremity Strength Assessment Right Impaired Hip 3+/5 Knee 4-/5 Coordination Assessment Gross Coordination Gross Coordination WNL Sensation Assessment Sensation Gross Sensation WNL Muscle Tone Muscle Tone WNL Yes M6 PT-IP Treatment Start: 04/18/19 11:50 Freq: NEEDED Status: Active Protocol: Document 04/18/19 13:40 AB (Rec: 04/18/19 14:48 AB [id number]) Physical Therapy Treatment Education Education Provided Precautions,Safety Other Treatments Other Treatment Performed spouse in room with pt and informed regarding pt's need of FWW for home use. stated that her mother might have one at home and also can borrow from the soroptomist M7 PT-IP Assessment and Plan Start: 04/18/19 11:50 Freq: NEEDED Status: Active Protocol: Document 04/18/19 13:40 AB (Rec: 04/18/19 14:48 AB [id number]) PT Summary Assessment and Plan Potential Rehabilitation Potential Good Summary Impairments Pain,ROM,Strength,Balance, Coordination,Cognition,Bed Mobility,Transfers,Gait, Activity Tolerance Progress Towards Goals Slow Progress due to Pain Assessment Summary pt c/o increase pain this afternoon affecting mobility and activity tolerance. will require further assessment after 2nd surgery tomorrow to determine safe d/c plan but pt plans to go home and spouse/ son will be able to assist him . will continue to assess. Goals Bed Mobility Goal Standby Assistance Transfer Goal Standby Assistance,Front Wheeled Walker Gait Goal Standby Assistance,Front Wheel Walker Gait Distance 250 Other Goals up/down 2 steps without rails SBA up/down 10 steps L rail ascending SBA Days to Meet Goals 10 Frequency of Treatment Frequency Of Treatment Twice a Day Treatment Plan Physical Therapy Treatment Plan Bed Mobility Training,Transfer Training,Gait Training, Therapeutic Exercise,Balance Retraining,Post Op Education, Discharge Planning,Hot or Cold Pack,Neuromuscular Re-ed, Coordination Retraining,Manual Therapy Other Recommendations and Next Treatment ambulation Focus Recommendations To Nursing Amount of Assist Needed 1 Person Assist Discharge Recommendations PT Discharge Recommendations Home with Assistance Equipment Needed for Home Before FWW Discharge
--- NOTE | 2019-04-18 13:42 | PC.NURSE ---
Addendum entered by Kika Castellanos R.N. 04/18/19 13:46: Urinary catheter removed at 0925 without difficulty, no void post removal yet, pt attempted X1 while standing in BR around 1235. Per Dr. Portillo this AM around 0800, no need for IVF after MN at this time. Pt aware to be NPO after MN for surgery tomorrow. Original Note: Day Shift- Pt able to make needs known using call light. Rates 4/10 deep aching pain this AM to lower back, no radiating. Medicated with PRN Slinger. This afternoon, pain increased to 6-7/10. OOB with PT to chair, ice pack to lower back while sitting in chair. When assisting pt back to bed from chair at 1240, lower back dressing at the distal end of dressing is rolling to where gauze was exposed. Dressing removed. Incision covered with medicated gauze. Area around cleansed with NS, pat dry with gauze, no redness or active drainage noted. Coversite dressing applied. Pt tolerated well.
[2019-04-18 15:15] VITALS: BP 143/79; PULSE 63; RESP 16; TEMP 36.5; O2SAT 92
[2019-04-18] MEDS: HYDROMORPHONE 0.5 MG INJ IV ×2 (16:43→20:58)
[2019-04-18] MEDS: GABAPENTIN 300 MG CAPSULE 600 MG PO (20:59)
[2019-04-18] MEDS: AMLODIPINE 5 MG TABLET PO (20:59)
[2019-04-18] MEDS: METOPROLOL ER 50 MG TABLET PO (20:59)
[2019-04-18] MEDS: SENNOSIDES 8.6 MG TABLET 17.2 MG PO (20:59)
[2019-04-18 21:00] VITALS: BP 120/72; PULSE 65; RESP 16; TEMP 36.7; O2SAT 93
[2019-04-19] VITALS (27 sets, daily range): BP systolic 124–170; BP diastolic 67–101; PULSE 56–87; RESP 11–20; TEMP 36.6–37.6; O2SAT 85–97
--- NOTE | 2019-04-19 | DI.RAD.S_ITS ---
PROCEDURE: XR LUMBAR SPINE MIN 4V INDICATIONS: T10-S1 INSTRUMENTED POSTERIOR FUSION WITH BONE GRAFT TECHNIQUE: 5 views of the lumbar spine acquired. COMPARISON: [facility], MR, MR LUMBAR SPINE WITHOUT CONTRAST, 11/08/2018, 8:01. [facility], CR, XR LUMBAR SPINE 2-3V, 04/17/2019, 9:19. FINDINGS: Multiple intraoperative fluoroscopy images demonstrate posterior fusion at T10-S1. Pedicular screws and fusion rods are in expected position. There is a disc prosthesis at L5-S1. IMPRESSION: Posterior fusion at T10-S1. Dictated by: Ephraim Navarro M.D. on 04/19/2019 at 14:42 Approved by: Ephraim Navarro M.D. on 04/19/2019 at 14:47
--- NOTE | 2019-04-19 02:59 | PC.NURSE ---
Addendum entered by Tessy Carranza R.N. 04/19/19 03:33: Complains of 6/10 abdominal pressure and back pain; medicated with Vicodin + Vistaril. Original Note: Patient is alert and oriented. Breath sounds CTA with RA sat of 94%. HRR. Denies nausea. BT present and is passing flatus. Complains of abdominal numbness along with 4/10 back pain which he states is tolerable at this time; declines offer of ice pack. Indwelling catheter is patent with good urine output. Dressing to back intact with shadow drainage noted. Dressing to left hip is CDI. CMS +. Declines to have SCD's on as affect his ability to sleep. Able to turn himself in bed. Gait not assessed at this time but patient denies feeling weak when up. Fall risk score is high and bed alarm is activated. Has been NPO since 0000 as is scheduled to surgery this morning at 0745.
[2019-04-19] MEDS: HYDROCODONE/ACET 5/325 TABLET 2 TAB PO ×3 (03:31→21:55)
[2019-04-19] MEDS: hydrOXYzine pamoate 25 MG CAPSULE PO (03:31)
--- NOTE | 2019-04-19 07:22 | PM.PREOP ---
Pre-operative Note Interval Note History & Physical reviewed/Exam performed by Physician: Yes Changes to H&P: No
[2019-04-19] MEDS: LACTATED RINGERS 1,000 ML 42 ML IV (07:30)
[2019-04-19] MEDS: CEFAZOLIN 2 GM/100 ML FROZ.PIGGY IV ×3 (07:54→20:03)
--- NOTE | 2019-04-19 08:28 | OT.IP.TRT ---
Current Diagnoses Other forms of scoliosis, lumbar region (04/17/19) Spinal stenosis, lumbar region with neurogenic claudication (04/17/19) Surgery Performed Operation Date: 04/17/19 07:45 Actual Procedures p L1-5 anterior instrumented fusion w/posterior interbody fusion at L5S1 - Juanito Portillo MD Operation Date: 04/19/19 07:45 <No data on this case meets the specified criteria> Occupational Therapy Treatment Note M2 OT-IP Current Condition Start: 04/18/19 13:21 Freq: Status: Active Protocol: Document 04/18/19 10:27 CCC (Rec: 04/18/19 13:48 CCC [email or web address]) Occupational Therapy Current Condition Current Condition Evaluation Date 04/18/19 Treatment Diagnosis S/p L5-S1 ant instr fusion with posterior interbody fusion L5-S1 Diagnosis Onset Date 04/17/19 Post Operative Precautions Lumbar Precautions Log Roll,No Twisting,Limit Bending,Lifting Restriction of 10 lbs,Gait Belt above Incisional Area Weight Bearing Status Weight Bearing Status Weight Bear as Tolerated M3 OT- IP Subjective and Pain Start: 04/18/19 13:21 Freq: Status: Active Protocol: Document 04/19/19 08:28 PJM (Rec: 04/19/19 08:29 PJM [email or web address]) OT- Subjective Occupational Therapy Visit Type Type Administrative Note Visit Start Time 08:28 Notes Hold OT today as pt to have 2nd stage of his back surgery today. Will await post op re- orders to resume tx.
[2019-04-19] MEDS: THROMBIN (RECOMBINANT) 5,000 UNIT VIAL 5000 UNIT TOP (08:40)
[2019-04-19] MEDS: VANCOMYCIN 1,000 MG VIAL 1000 MG TOP (08:41)
[2019-04-19] MEDS: SODIUM CHLORIDE 0.9% 1,000 ML, GENTAMICIN 80 MG IRR (08:42)
[2019-04-19] MEDS: BUPIVACAINE 0.5% (PF) 4 ML, MORPHINE-PF 4 MG, BUTORPHANOL 1 MG, fentaNYL 100 MCG INJ (09:05)
--- NOTE | 2019-04-19 09:17 | SUR.OPER ---
Prone on spine table, head in foam head support, padded chest and pelvic supports, gel pad at knees and between ankles, lower legs supported by pillows; nipples, genitalia and toes free of pressure, arms secured on foam padded arm boards at <90 degrees abduction. Tape over blanket at thigh secured to table.
--- NOTE | 2019-04-19 12:16 | PT-IP ANOTE ---
pt on hold for PT this morning. Pt undergoing his part 2 back surgery this morning. will f/u after surgery.
--- NOTE | 2019-04-19 12:34 | PM.OP.1 ---
Operative Date/Time/Diagnoses Date of procedure: 04/19/19 Time of procedure: 12:34 Pre-op diagnosis: Lumbar stenosis with radiculopathy Lumbar scoliosis Post-op diagnosis: same Procedure & Clinicians Procedure: T10 through S1 posterior fusion T10 through S1 posterior screw instrumentation Iliac crest bone graft aspirate Placement of an epidural catheter Same procedure as scheduled: Yes Indications: 58-year-old male with stenosis and scoliosis. He underwent stage I of his 2 part surgery 2 days ago and was returning today for the 2nd half, all posteriorly. Risks and benefits of surgery discussed and appropriate consents were obtained. Surgeon: Juanito Portillo Clinical Project Leader: Neris Doty Anesthesia Type: General Operative Notes Findings: None Closure Type: primary Specimen(s): none sent Prosthetic devices, grafts, tissues, transplants, or devices: NuVasive MAS Reline screws Applied: catheter Estimated Blood Loss (mL): 100 Blood products transfused: none Procedure in detail: Patient brought to the operating room and intubated on the stretcher. He was rolled over to the well-padded prone position on the Tai table. The old dressing and sutures were removed. The back was prepped and draped in standard sterile fashion. Preoperative antibiotics were given. A time-out was performed. We used fluoroscopy for localization and made two 30 cm longitudinal incisions incisions, on the right side continuing with our incision from 2 days ago. We used Bovie to come down to and split the fascia on the right. The left side we exposed down to the level of the fascia. We then used 2 planes of fluoroscopy and neuro monitoring to percutaneously placed Jamshidi needles from T10 through L4 on the right and T10 through S1 on the left. We then changed these out over guidewires. We dissected down on the left-hand side to L5-S1 and exposed the facets and sacral ala and L5 transverse process. These were decorticated. We used Osteocel bone graft and placed it in the posterolateral gutter at this level for additional fusion surface area at L5-S1. We then tapped over the guidewires and placed our screws from T10 through S1 on the left, using fluoroscopy and neural monitoring. At some of the more sclerotic levels, we used the same diameter tap as our screws. We conformed a buddy and placed it into the screws and locked it down. We then went over the right side. We dissected and did a Johan muscle-splitting approach to expose the transverse processes at every level as well as medially along the thoracic spine. We used a bur to decorticate the exposed bone. Screw heads were placed onto the screw shanks of L5 and S1. We then tapped and placed our screws from T10 through L4. We again conformed a buddy and placed it down and locked it. Final x-rays were taken. The wounds were irrigated. A Jamshidi needle was placed into the PSIS on the right and aspirated 10 mL of bone marrow with several passes. This was mixed with cancellous bone chips and remaining Osteocell and placed out in the posterolateral gutter for the fusion from T10 through S1. We opened up the retractor back down at L5-S1 and exposed our laminotomy from 2 days ago. This area was cleared out. We took an epidural catheter and primed it with 100 micro g of fentanyl, 1 mg Stadol, 4 mg Duramorph, and 4 mL of 0.5% Marcaine. We slid the catheter up underneath the laminotomy site approximately 6 cm cephalad up the canal. We then closed the fascia in layers. The epidural catheter was injected without any resistance and removed. Vancomycin powder was placed in the wounds. The superficial and skin were closed. A sterile dressing was placed. He was then rolled over, extubated, and brought to recovery with no complications. Complications: none Post-operative Condition: stable Disposition: PACU Plan for aftercare: Inpatient. Up with physical therapy as tolerated. Anticipate 3 more days in the hospital.
[2019-04-19] MEDS: hydrOXYzine 50 MG/ML INJ 25 MG IM (13:07)
[2019-04-19] MEDS: fentaNYL 100 MCG/2 ML INJ 50 MCG IV ×2 (13:07→13:27)
[2019-04-19] MEDS: ONDANSETRON 4 MG/2 ML INJ IV (13:16)
[2019-04-19] MEDS: HYDROMORPHONE 2 MG INJ IV ×5 (13:32→13:52)
[2019-04-19] MEDS: LORazepam 2 MG/ML INJ 0.5 MG IV (13:44)
--- NOTE | 2019-04-19 14:07 | SUR.PHASEI ---
care assumed after 30 minutes break.
[2019-04-19] MEDS: LACTATED RINGERS 1,000 ML 125 ML IV (16:00)
--- NOTE | 2019-04-19 16:59 | PT-IP ANOTE ---
Pt just came back from surgery and not ready when PT checked on pt.
[2019-04-19] MEDS: CELECOXIB 200 MG CAPSULE 400 MG PO (17:15)
--- NOTE | 2019-04-19 17:43 | PC.NURSE ---
Addendum entered by Alma Frances R.N. 04/19/19 22:07: Powers cath patent clear yellow urine. Addendum entered by Alma Frances R.N. 04/19/19 21:48: Pt resting at intervals, Med at 2150 for discomfort. Dsg to back w shadow drainage. IVF continue as per orders. Call light w/in reach, bed alarm on for pt safety. Continue w/plan of care. Original Note: [id number] Shift Notes Pt returned from PACU at 1500 Awake, alert. SpO2 95% 3L IV LR infusing as per orders into RAC via pump w/o incidence. Dsg to back w/ shadow drainage noted. Left hip area dsg CDI. Med w/ Leighton for discomfort @ 1730. Call light w/in reach, bed alarm on for pt safety.
[2019-04-19] MEDS: GABAPENTIN 300 MG CAPSULE 600 MG PO (20:04)
[2019-04-19] MEDS: DOCUSATE 100 MG CAPSULE PO (20:04)
[2019-04-19] MEDS: CELECOXIB 200 MG CAPSULE PO (20:04)
[2019-04-19] MEDS: AMLODIPINE 5 MG TABLET PO (20:04)
[2019-04-19] MEDS: METOPROLOL ER 50 MG TABLET PO (20:04)
[2019-04-19] MEDS: SENNOSIDES 8.6 MG TABLET 17.2 MG PO (20:05)
[2019-04-20] VITALS (8 sets, daily range): BP systolic 117–148; BP diastolic 72–91; PULSE 59–75; RESP 16–18; TEMP 36.5–37.2; O2SAT 94–98
[2019-04-20] MEDS: HYDROMORPHONE 1 MG INJ 0.5 MG IV ×2 (00:24→03:47)
[2019-04-20] MEDS: hydrOXYzine pamoate 25 MG CAPSULE PO ×4 (00:25→20:05)
--- NOTE | 2019-04-20 00:54 | PC.NURSE ---
Addendum entered by Tessy Carranza R.N. 04/20/19 06:26: States pain is 5/10 this morning; requested/medicated with Vicodin + Vistaril. Discussed possibly switching to Oxycodone if pain not controlled with po meds. Addendum entered by Tessy Carranza R.N. 04/20/19 03:50: States pain is now 9/10 with movement although was able to sleep for short interval; medicated with Dilaudid. Addendum entered by Tessy Carranza R.N. 04/20/19 02:45: Attempted to wean off oxygen but oximeter alarming so placed back on oxygen at 1L/min Addendum entered by Tessy Carranza R.N. 04/20/19 02:17: States back pain is still 6/10 so medicated with 2 Vicodin per patient request. Original Note: Patient is alert and oriented. Breath sounds CTA with sat in upper 90's. Was on oxygen at 3L/min per NC at shift change and was decreased to 2L/min and now decreased to 1L/min; on continuous oximetry and will continue to titrate as able. HRR but bradycardic in 50's. Denies nausea. BT present and is passing gas but still complains of abdominal tenderness which is unchanged from last night. Indwelling catheter is patent; urine is clear yellow. Complains of 7/10 back pain so medicated with IV Dilaudid + po Vistaril. Dressing to back is nearly saturated with serosanguinous drainage but no leakage; will monitor and reinforce as needed. Dressing to left hip is CDI. Is able to turn self in bed but prefers to lie on back. Does have some numbness in lateral aspect of left hip/thigh but other CMS is intact. Wearing bilateral foot SCD's. Fall risk score is high and bed alarm is activated.
[2019-04-20] MEDS: LACTATED RINGERS 1,000 ML 125 ML IV (01:33)
[2019-04-20] MEDS: HYDROCODONE/ACET 5/325 TABLET 2 TAB PO ×5 (02:15→20:05)
[2019-04-20] MEDS: CEFAZOLIN 2 GM/100 ML FROZ.PIGGY IV (03:48)
--- NOTE | 2019-04-20 07:51 | PM.PNPO.1 ---
Subjective Subjective Date Patient Seen: 04/20/19 Time Patient Seen: 07:51 Interval history: Pain is 5/10 at rest but goes up with motion. All across the back. Some numbness going around the anterior pelvis. Exam Vital Signs (past 8 hours): - 04/20/19 01:00 04/20/19 03:50 04/20/19 07:14 Temperature 98.1 F 97.7 F Pulse Rate 61 64 Respiratory Rate 16 16 Blood Pressure 148/91 H 132/80 Pulse Oximetry 98 96 95 Oxygen Delivery Method Nasal Cannula Oxygen Flow Rate 1 Const Orientation: alert and oriented x3 Back/Spine/Pelvis Other: Posterior dressing saturated. 5/5 motor both lower extremities except for 5-/5 left hip flexor Objective Labs Result Diagrams: 04/20/19 06:00 Labs: Laboratory Results - last 24 hr 04/20/19 06:00 Hgb 12.0 L Hct 35.0 L Assessment & Plan Post-op Postoperative Procedures: Procedures Operation Date: 04/17/19 07:45 Actual Procedures Side Surgeon p L1-5 anterior instrumented fusion w/posterior interbody fusion at L5S1 Juanito Portillo MD Operation Date: 04/19/19 07:45 Actual Procedures Side Surgeon p T10-S1 instrumented posterior fusion with bone graft Juanito Portillo MD he is doing well. Mobilize today with physical therapy. Quality VTE Deep Vein Thrombosis/Pulmonary Embolism Present on Admission: No
[2019-04-20] MEDS: CELECOXIB 200 MG CAPSULE PO ×2 (09:12→20:05)
[2019-04-20] MEDS: DOCUSATE 100 MG CAPSULE PO ×2 (09:12→20:04)
--- NOTE | 2019-04-20 09:54 | PC.NURSE ---
Addendum entered by Ángela Agosto R.N. 04/20/19 14:44: Pt alert and oriented. Pain controlled with acetaminophen/hydrocodone and IV dilaudid. Pt up 1PA with FWW with Pt/OT. Pt weaned off O2 in AM without issues, O2 stats at 98%. Powers catheter intact and draining yellow urine. Pt has no complaints. [facility] Addendum entered by Ángela Agosto R.N. 04/20/19 14:37: New dressing saturated again with serosanguinous drainage. Dressing changed. CDI and gauze placed on site. Pt tolerated well. Original Note: Pt back dressing saturated with serosanguines drainage at start of shift. Dressing changed, pt tolerated well. Non-adherent dressing along joe and gauze over incision.
--- NOTE | 2019-04-20 11:15 | PT.IPTN ---
Current Diagnoses Other forms of scoliosis, lumbar region (04/17/19) Spinal stenosis, lumbar region with neurogenic claudication (04/17/19) Surgery Performed Operation Date: 04/17/19 07:45 Actual Procedures p L1-5 anterior instrumented fusion w/posterior interbody fusion at L5S1 - Juanito Portillo MD Operation Date: 04/19/19 07:45 Actual Procedures p T10-S1 instrumented posterior fusion with bone graft - Juanito Portillo MD Physical Therapy Treatment Note M2 PT-IP Current Condition Start: 04/18/19 11:50 Freq: NEEDED Status: Active Protocol: Document 04/20/19 11:15 AB (Rec: 04/20/19 14:07 AB [email or web address]) Physical Therapy Current Condition Current Condition Evaluation Date 04/20/19 Treatment Diagnosis s/p T10-S1 post. fusion/lami; L1-L5 ant. fusion; difficulty in walking Onset Date 04/17/19 Precautions Lumbar Precautions Log Roll,No Twisting,Limit Bending,Lifting Restriction of 10 lbs,Gait Belt above Incisional Area M3 PT-IP Subjective Start: 04/18/19 11:50 Freq: NEEDED Status: Active Protocol: Document 04/20/19 11:15 AB (Rec: 04/20/19 14:07 AB [email or web address]) Subjective Physical Therapy Visit Type Type Treatment Note Visit Start Time 11:15 Visit Stop Time 11:39 Total Visit Minutes 24 Notes 04/17: pt underwent part one of back surgery: L1-L5 anterior fusion/L5S1 TLIF 04/19: underwent part two of back surgery: T10-S1 post. fusion. Number of MANAGEMENT PROFESSOR Visits 0 Physical Therapy Visit Comments Patient Comments pt agreeable to do PT Patient Goals to go home Therapy Pain Assessment Pain When Pain Assessed At Rest Pain Present Pain Present Pain Reported Location Back Intensity 5 Scale Used increases to 7/10 Pain Management Techniques Re-positioning,Timing of Activity with Medications M4 PT-IP Mobility and Gait Start: 04/18/19 11:50 Freq: NEEDED Status: Active Protocol: Document 04/20/19 11:15 AB (Rec: 04/20/19 14:07 AB [email or web address]) PT-Bed Mobility Assessment Rolling Level of Assist Standby Assistance Supine to Sit Supine to Sit Standby Assistance Sit to Supine Sit to Supine Standby Assistance PT-Transfer Assessment Sit to and From Stand Sit to and from Stand Contact Guard Assistance Equipment Transfer Assistive Device Gait Belt,Front Wheeled Walker Orthotic/Prosthetic Devices or Brace: No Transfers Transfer Destination Chair Transfer Technique ambulated using FWW Transfer Ability Level of Assist Contact Guard Assistance Gait Assessment Gait Gait Assistance Required: Contact Guard Assist Distance (Feet) 40 Able to Maintain Weight Bearing Status Yes During Gait Assistive Devices Assistive Device Gait Belt,Front Wheeled Walker Orthotic/Prosthetic Devices or Brace: No Gait Deviations General Gait Pattern Antalgic Factors Limiting Gait Function Factors Limiting Gait Function Decreased Activity Tolerance, Decreased Strength,Limited Range of Motion,Pain,Poor Balance PT-Balance Assessment Sitting Balance and Reactions Static Sitting Balance Ability Good Dynamic Sitting Balance Ability Good Standing Balance and Reactions Static Standing Balance Ability Fair Dynamic Standing Balance Ability Fair Device Used FWW M5 PT-IP Objective Assessments Start: 04/18/19 11:50 Freq: NEEDED Status: Active Protocol: Document 04/18/19 10:25 AB (Rec: 04/18/19 12:16 AB [email or web address]) Orientation Orientation/Cognition Level of Alertness Alert Orientation Name,Age,Birthday,Month,Date, Year,Day of Week,Place, Situation Language Function Ability No Deficits Noted Safety Awareness Understands Safety Issues Memory Description No Deficits Noted Gross Range of Motion Lower Extremity ROM Assessment Within Functional Limits Strength Lower Extremity Strength Assessment Right Impaired Hip 3+/5 Knee 4-/5 Coordination Assessment Gross Coordination Gross Coordination WNL Sensation Assessment Sensation Gross Sensation WNL Muscle Tone Muscle Tone WNL Yes M6 PT-IP Treatment Start: 04/18/19 11:50 Freq: NEEDED Status: Active Protocol: Document 04/20/19 11:15 AB (Rec: 04/20/19 14:07 AB [email or web address]) Physical Therapy Treatment Education Education Provided Precautions,Weight Bearing Status,Post-Op Packet,Safety M7 PT-IP Assessment and Plan Start: 04/18/19 11:50 Freq: NEEDED Status: Active Protocol: Document 04/20/19 11:15 AB (Rec: 04/20/19 14:07 AB [email or web address]) PT Summary Assessment and Plan Potential Rehabilitation Potential Good Summary Impairments Pain,ROM,Strength,Balance,Bed Mobility,Transfers,Gait, Activity Tolerance Assessment Summary pt underwent part 2 of back surgery. Re-eval not indicated as there is no significant change in pt's mobility status. pt requires CGA with mobility but continues to have decrease activity tolerance due to c/o pain. pt plans to go home and spouse/son to assist him. will continue to assess. Goals Bed Mobility Goal Standby Assistance Transfer Goal Standby Assistance,Front Wheeled Walker Gait Goal Standby Assistance,Front Wheel Walker Gait Distance 250 Other Goals up/down 2 steps without rails SBA up/down 10 steps L rail ascending SBA Days to Meet Goals 10 Frequency of Treatment Frequency Of Treatment Twice a Day Treatment Plan Physical Therapy Treatment Plan Bed Mobility Training,Transfer Training,Gait Training, Therapeutic Exercise,Balance Retraining,Post Op Education, Discharge Planning,Hot or Cold Pack,Neuromuscular Re-ed, Coordination Retraining,Manual Therapy Other Recommendations and Next Treatment ambulation Focus Recommendations To Nursing Amount of Assist Needed 1 Person Assist Discharge Recommendations PT Discharge Recommendations Home with Assistance Equipment Needed for Home Before FWW Discharge
--- NOTE | 2019-04-20 11:16 | OT.IP.TRT ---
Current Diagnoses Other forms of scoliosis, lumbar region (04/17/19) Spinal stenosis, lumbar region with neurogenic claudication (04/17/19) Surgery Performed Operation Date: 04/17/19 07:45 Actual Procedures p L1-5 anterior instrumented fusion w/posterior interbody fusion at L5S1 - Juanito Portillo MD Operation Date: 04/19/19 07:45 Actual Procedures p T10-S1 instrumented posterior fusion with bone graft - Juanito Portillo MD Occupational Therapy Treatment Note M2 OT-IP Current Condition Start: 04/18/19 13:21 Freq: Status: Active Protocol: Document 04/18/19 10:27 [facility] (Rec: 04/18/19 13:48 [facility] [id number]) Occupational Therapy Current Condition Current Condition Evaluation Date 04/18/19 Treatment Diagnosis S/p L5-S1 ant instr fusion with posterior interbody fusion L5-S1 Diagnosis Onset Date 04/17/19 Post Operative Precautions Lumbar Precautions Log Roll,No Twisting,Limit Bending,Lifting Restriction of 10 lbs,Gait Belt above Incisional Area Weight Bearing Status Weight Bearing Status Weight Bear as Tolerated M3 OT- IP Subjective and Pain Start: 04/18/19 13:21 Freq: Status: Active Protocol: Document 04/20/19 14:02 [facility] (Rec: 04/20/19 14:23 [facility] [id number]) OT- Subjective Occupational Therapy Visit Type Type Treatment Note Visit Start Time 11:16 Visit Stop Time 11:46 Total Visit Minutes 30 Occupational Therapy Visit Comments Patient Comments Pt seen again after 2nd back surgery of T10-S1 posterior fusion. Pt willing to get up for OT/PT eval. Patient/Caregiver Goals To go home. OT Pain Assessment Pain When Pain Assessed At Rest Pain Present Pain Present Pain Reported Location Back Intensity 5 Scale Used Numeric (1 - 10) M4 OT- IP ADL's Start: 04/18/19 13:21 Freq: Status: Active Protocol: Document 04/20/19 14:02 [facility] (Rec: 04/20/19 14:23 [facility] [id number]) OT EWD-Kncr-Ljltlql General Evaluation Self-Feeding Ability Independent OT ADL-Dressing General Eval Lower Body Dressing Ability Maximum Assistance Areas Needing Assistance Socks Comments OT Dressing Comments Spoke to pt again regarding use of LB dressing equipment and pt insistent that family will assist. Pt agreed to be issued a communications operator. OT ADL-Toileting Comments OT Toileting Comments Pt not having to use the toilet at this time. OT ADL-Bathing Comments OT Bathing Comments Pt not feeling able to shower at this time and resistent to showering here in the hospital . Educated and explained to pt showering here will help better determine whether that he will need a shower chair versus tub bench. If appropriate and pt willing, to try shower tomorrow. M5 OT- IP IADL's Start: 04/18/19 13:21 Freq: Status: Active Protocol: Document 04/18/19 10:27 [facility] (Rec: 04/18/19 13:48 [facility] [id number]) OT-Instrumental Activities of Daily Living Home Safety Awareness Ability to Problem Solve Emergency Able to Problem Solve Situations Medication Management Medication Management No Deficits Identified Money Management Money Management No Deficits Identified Meal Preparation Meal Preparation Caregiver Provides Assist Meal Preparation Comments and son to assist. Land Management Forester Land Management Forester Caregiver Provides Assist Land Management Forester Comments and son to assist. M6 OT- IP Functional Cognition Start: 04/18/19 13:21 Freq: Status: Active Protocol: Document 04/20/19 14:02 [facility] (Rec: 04/20/19 14:23 [facility] [id number]) Cognitive Factors Limiting Selfcare Function Cognitive Comments Cognitive Assessment Comments Pt able to states all back precautions and good safety for FWW use and for back precautions at this time. M7 OT- IP Mobility and Balance Start: 04/18/19 13:21 Freq: Status: Active Protocol: Document 04/20/19 14:02 [facility] (Rec: 04/20/19 14:23 [facility] [id number]) OT- Bed Mobility Assessment Rolling Type of Rolling Roll to Left Level of Assistance Standby Assistance Supine to Sit Supine to Sit Assist Contact Guard Assistance, Bedrails OT-Transfer Assessment Sit to and From Stand Sit to and from Stand Contact Guard Assistance Transfers Transfer Ability Contact Guard Assistance Technique Transfer Destination Bed,Chair Transfer Technique Stand Step Pivot Devices Transfer Assistive Devices Gait Belt,Front Wheeled Walker Comments Mobility Comments CGA to help form sidelying to supine and pt needing use of bed rail to assist. CGA with FWW when up with FWW. OT- Gait Assessment Comments Gait Ability Comments Due to incision pain, pt now prefers t get out of the left side of the bed. OT- Balance Assessment Sitting Balance and Reactions Static Sitting Balance Ability Normal Dynamic Sitting Balance Ability Good Standing Balance and Reactions Static Standing Balance Ability Good M8 OT- IP Objective Assessments Start: 04/18/19 13:21 Freq: Status: Active Protocol: Document 04/20/19 14:02 [facility] (Rec: 04/20/19 14:23 [facility] [id number]) OT Gross Range of Motion Upper Extremity Range of Motion Assessment Within Functional Limits OT Strength Upper Extremity Strength Assessment Within Functional Limits OT-Muscle Tone Assessment Muscle Tone WNL Yes M9 OT- IP Assessment and Plan Start: 04/18/19 13:21 Freq: Status: Active Protocol: Document 04/20/19 14:02 [facility] (Rec: 04/20/19 14:23 [facility] [id number]) OT Summary Assessment and Plan Potential Rehabilitation Potential Good Analytic Complexity at Evaluation Low Summary OT Impairments Functional Mobility,Dressing, Toileting,Bathing,Toilet Transfers,Shower Transfers Progress Towards Goals Progressing Toward Goals Assessment Summary Pt doing well with mobility at this time CGA with FWW. Pt main barrier are steps and OT to help determine whether pt will need shower chair for upstairs shower , possible tub bench for lower tub/shower or may be able to step over the tub to get into the shower pending progress. In addition for OT to go over caregiver training for OT needs. Goals Grooming Goal Independent Dressing Goal Standby Assistance Toileting Goal Independent Bathing Goal Minimal Assistance Toilet Transfer Goal Standby Assistance Shower Transfer Goal Contact Guard Assistance Patient/Caregiver Education Goal Demonstrate Post-Op Precautions,Caregiver Independent Assisting Patient Days to Meet Goals 5 Frequency of Treatment Frequency Of Treatment Once a Day Treatment Plan OT Treatment Plan ADL Training,Functional Mobility,Patient/Family Education,Discharge Planning Discharge Recommendations OT Discharge Recommendations Home with Assistance Other Discharge Recommendations Pending progress and caregiver training.
[2019-04-20] MEDS: HYDROMORPHONE 0.5 MG INJ IV ×5 (12:05→22:31)
[2019-04-20] MEDS: OXYCODONE IR 10 MG TABLET PO (14:07)
--- NOTE | 2019-04-20 17:13 | PT.IPTN ---
Current Diagnoses Other forms of scoliosis, lumbar region (04/17/19) Spinal stenosis, lumbar region with neurogenic claudication (04/17/19) Surgery Performed Operation Date: 04/17/19 07:45 Actual Procedures p L1-5 anterior instrumented fusion w/posterior interbody fusion at L5S1 - Juanito Portillo MD Operation Date: 04/19/19 07:45 Actual Procedures p T10-S1 instrumented posterior fusion with bone graft - Juanito Portillo MD Physical Therapy Treatment Note M2 PT-IP Current Condition Start: 04/18/19 11:50 Freq: NEEDED Status: Active Protocol: Document 04/20/19 11:15 [facility] (Rec: 04/20/19 14:07 [facility] [email or web address]) Physical Therapy Current Condition Current Condition Evaluation Date 04/20/19 Treatment Diagnosis s/p T10-S1 post. fusion/lami; L1-L5 ant. 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 1 Physical Therapy Visit Comments Patient Comments pt agreeable to do PT Patient Goals to go home Therapy Pain Assessment Pain When Pain Assessed At Rest Pain Present Pain Present Pain Reported M4 PT-IP Mobility and Gait Start: 04/18/19 11:50 Freq: NEEDED Status: Active Protocol: Document 04/20/19 17:04 LJ (Rec: 04/20/19 17:12 LJ [id number]) PT-Bed Mobility Assessment Rolling Type of Rolling Roll to Right Level of Assist Standby Assistance Supine to Sit Supine to Sit Standby Assistance Sit to Supine Sit to Supine Standby Assistance PT-Transfer Assessment Sit to and From Stand Sit to and from Stand Contact Guard Assistance,Use of Upper Extremities Equipment Transfer Assistive Device Gait Belt,Front Wheeled Walker Transfers Transfer Destination Bed,Toilet Transfer Ability Level of Assist Contact Guard Assistance Comments Mobility Comments Pt completed bed mobility SBA moving slowly due to increased pain. Sit<>stand x2 from chair to toilet to bed SBA to CGA. Pt stood at sink while nursing changed bandage. Gait Assessment Gait Gait Assistance Required: Contact Guard Assist Distance (Feet) 150 Able to Maintain Weight Bearing Status Yes During Gait Assistive Devices Assistive Device Gait Belt,Front Wheeled Walker Orthotic/Prosthetic Devices or Brace: No Gait Deviations General Gait Pattern Antalgic Factors Limiting Gait Function Factors Limiting Gait Function Decreased Activity Tolerance, Decreased Strength,Limited Range of Motion,Pain,Poor Balance Comments Gait Comments Pt ambulated in hallway 150' with CGA and cueing for relaxing shoulders. End of ambulation pt felt less pain and was SBA PT-Balance Assessment Sitting Balance and Reactions Static Sitting Balance Ability Normal Dynamic Sitting Balance Ability Good M5 PT-IP Objective Assessments Start: 04/18/19 11:50 Freq: NEEDED Status: Active Protocol: Document 04/18/19 10:25 [facility] (Rec: 04/18/19 12:16 AB [id number]) Orientation Orientation/Cognition Level of Alertness Alert Orientation Name,Age,Birthday,Month,Date, Year,Day of Week,Place, Situation Language Function Ability No Deficits Noted Safety Awareness Understands Safety Issues Memory Description No Deficits Noted Gross Range of Motion Lower Extremity ROM Assessment Within Functional Limits Strength Lower Extremity Strength Assessment Right Impaired Hip 3+/5 Knee 4-/5 Coordination Assessment Gross Coordination Gross Coordination WNL Sensation Assessment Sensation Gross Sensation WNL Muscle Tone Muscle Tone WNL Yes M6 PT-IP Treatment Start: 04/18/19 11:50 Freq: NEEDED Status: Active Protocol: Document 04/20/19 17:04 [facility] (Rec: 04/20/19 17:12 [id number]) Physical Therapy Treatment Education Education Provided Precautions,Weight Bearing Status,Post-Op Packet,Safety M7 PT-IP Assessment and Plan Start: 04/18/19 11:50 Freq: NEEDED Status: Active Protocol: Document 04/20/19 17:04 [facility] (Rec: 04/20/19 17:12 [id number]) PT Summary Assessment and Plan Potential Rehabilitation Potential Good Status of Condition at Evaluation Stable Summary Impairments Pain,ROM,Strength,Balance,Bed Mobility,Transfers,Gait, Activity Tolerance Assessment Summary Pt able to increase ambulation distance and lessen amount of assist. Pt will need to perform stair training tomorrow. Goals Bed Mobility Goal Standby Assistance Transfer Goal Standby Assistance,Front Wheeled Walker Gait Goal Standby Assistance,Front Wheel Walker Gait Distance 250 Other Goals up/down 2 steps without rails SBA up/down 10 steps L rail ascending SBA Days to Meet Goals 10
[2019-04-20] MEDS: SENNOSIDES 8.6 MG TABLET 17.2 MG PO (20:05)
[2019-04-20] MEDS: AMLODIPINE 5 MG TABLET PO (20:05)
[2019-04-20] MEDS: METOPROLOL ER 50 MG TABLET PO (20:05)
[2019-04-20] MEDS: GABAPENTIN 300 MG CAPSULE 600 MG PO (20:05)
[2019-04-21] MEDS: hydrOXYzine pamoate 25 MG CAPSULE PO ×3 (00:22→20:42)
[2019-04-21] MEDS: HYDROCODONE/ACET 5/325 TABLET 2 TAB PO ×3 (00:22→08:25)
[2019-04-21] MEDS: HYDROMORPHONE 0.5 MG INJ IV ×3 (02:04→10:49)
[2019-04-21 05:27] VITALS: BP 149/87; PULSE 70; RESP 20; TEMP 36.6; O2SAT 95
[2019-04-21] MEDS: MAGNESIUM HYDROXIDE 30 ML UDC PO (05:30)
[2019-04-21] MEDS: SODIUM CHLORIDE 0.9% FLUSH 10 ML IV ×4 (05:32→21:31)
--- NOTE | 2019-04-21 05:45 | PC.NURSE ---
Pt. C/O abdominal spasms, denies having bowel movement yesterday. States I was in the BR last evening trying to have a bowel movement, but was able to pass stool, only gas. Also C/O abdominal pressure & constipation requested MOM 30 cc admin. Back dressing saturated with sero-sang. drainage, dressing changed. Pain level 7-9/10 medicated x2 doses of 2 tabs. Vicodin & 25 mg. PO Vistaril. 0.5 mg. of Dilaudid IVP also administered X 2 doses. Declined to discontinue his damon catheter, will report to day & RN. Will monitor.
--- NOTE | 2019-04-21 08:17 | PC.NURSE ---
Addendum entered by Luann Doherty R.N. 04/21/19 15:25: Had watery BM after enema and is back in bed at this time. Call light within reach. Bed alarm on. Addendum entered by Luann Doherty R.N. 04/21/19 14:59: Admin fleets enema approx. 1430. Patient sitting on toilet now and agrees to call for staff when he's done. Addendum entered by Luann Doherty R.N. 04/21/19 13:33: Placed chair alarm just in case patient wakes up and tries to get up without calling. Call light remains within reach. Addendum entered by Luann Doherty R.N. 04/21/19 13:01: Resting quietly in chair with eyes closed. Respirations regular and unlabored. No s/sx distress or discomfort. 0 on FLACC scale. Call light within reach. Addendum entered by Luann Doherty R.N. 04/21/19 12:02: Passed flatus and had just a smear of stool since given suppository. Still feels crampy in his abdomen. Discussed plan to proceed with enema after pain meds kick in a bit. He has not reported his pain less than a 5/6 this shift. 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 Received a new order for PO Dilaudid and was given 2 mg to start. Remains up in chair and calls appropriately. Light and belongings within reach. Addendum entered by Luann Doherty R.N. 04/21/19 09:43: Was not able to have a BM after breakfast. Ambulated cortes with PT, then given Dulcolax suppository. Sitting up in chair for now. Dr Portillo wants damon removed later today, patient aware and agreeable (but does not want it removed yet). Agrees to call for assist with transfers/other needs. Light and belongings within reach. Original Note: Shift summary: Awake and alert, oriented X3. Up in chair since before shift change. Dressings to mid back and L flank C/D/I. Denies paresthesias. Reports 5/10 back pain, plan to give Vicodin with breakfast. BT+, hypoactive. Plan to admin. suppository if no BM after breakfast. Damon to gravity, urine clear yellow. Able to make needs known and agrees to call if he wants to get to bathroom or back to bed. Belongings and call light within reach.
--- NOTE | 2019-04-21 08:24 | P.PN_ITS ---
Subjective Subjective Date Patient Seen: 04/21/19 Time Patient Seen: 08:24 Interval history: doing well at rest, but getting in and out of bed is extremely painful across the back. Legs are fine. Feeling some pain from constipation and they are working on this today. He had saturated his distressing again and this was changed overnight. Exam Vital Signs (past 8 hours): - 04/21/19 05:27 Temperature 97.9 F Pulse Rate 70 Respiratory Rate 20 Blood Pressure 149/87 H Pulse Oximetry 95 Oxygen Delivery Method Room Air Oxygen Flow Rate 0 Const Orientation: alert and oriented x3 Back/Spine/Pelvis Other: CDI. 5/5 motor both lower extremities. Objective Labs Result Diagrams: 04/20/19 06:00 Assessment & Plan Post-op Postoperative Procedures: Procedures Operation Date: 04/17/19 07:45 Actual Procedures Side Surgeon p L1-5 anterior instrumented fusion w/posterior interbody fusion at L5S1 Juanito Portillo MD Operation Date: 04/19/19 07:45 Actual Procedures Side Surgeon p T10-S1 instrumented posterior fusion with bone graft Juanito Portillo MD he is stable. Continue to mobilize with physical therapy. Anticipate disc harge in the next 1-2 days. Quality VTE Deep Vein Thrombosis/Pulmonary Embolism Present on Admission: No
[2019-04-21] MEDS: CELECOXIB 200 MG CAPSULE PO ×2 (08:26→20:39)
[2019-04-21] MEDS: DOCUSATE 100 MG CAPSULE PO ×2 (08:26→20:39)
[2019-04-21 08:45] VITALS: BP 136/80; PULSE 70; RESP 18; TEMP 36.4; O2SAT 95
--- NOTE | 2019-04-21 09:15 | PT.IPTN ---
Current Diagnoses Other forms of scoliosis, lumbar region (04/17/19) Spinal stenosis, lumbar region with neurogenic claudication (04/17/19) Surgery Performed Operation Date: 04/17/19 07:45 Actual Procedures p L1-5 anterior instrumented fusion w/posterior interbody fusion at L5S1 - Juanito Portillo MD Operation Date: 04/19/19 07:45 Actual Procedures p T10-S1 instrumented posterior fusion with bone graft - Juanito Portillo MD Physical Therapy Treatment Note M2 PT-IP Current Condition Start: 04/18/19 11:50 Freq: NEEDED Status: Active Protocol: Document 04/20/19 11:15 AB (Rec: 04/20/19 14:07 AB [email or web address]) Physical Therapy Current Condition Current Condition Evaluation Date 04/20/19 Treatment Diagnosis s/p T10-S1 post. fusion/lami; L1-L5 ant. fusion; difficulty in walking Onset Date 04/17/19 Precautions Lumbar Precautions Log Roll,No Twisting,Limit Bending,Lifting Restriction of 10 lbs,Gait Belt above Incisional Area M3 PT-IP Subjective Start: 04/18/19 11:50 Freq: NEEDED Status: Active Protocol: Document 04/21/19 09:15 AB (Rec: 04/21/19 12:42 AB [id number]) Subjective Physical Therapy Visit Type Type Treatment Note Visit Start Time 09:15 Visit Stop Time 09:36 Total Visit Minutes 21 Number of DIRECTOR EMPLOYMENT Visits 0 Physical Therapy Visit Comments Patient Comments c/o constipation Therapy Pain Assessment Pain When Pain Assessed At Rest Pain Present Pain Present Pain Reported Location Back Intensity 6 Pain Management Techniques Timing of Activity with Medications M4 PT-IP Mobility and Gait Start: 04/18/19 11:50 Freq: NEEDED Status: Active Protocol: Document 04/21/19 09:15 AB (Rec: 04/21/19 12:42 AB [id number]) PT-Transfer Assessment Sit to and From Stand Sit to and from Stand Standby Assistance Equipment Transfer Assistive Device Gait Belt,Front Wheeled Walker Gait Assessment Gait Gait Assistance Required: Contact Guard Assist Distance (Feet) 200 Able to Maintain Weight Bearing Status Yes During Gait Assistive Devices Assistive Device Gait Belt,Front Wheeled Walker Orthotic/Prosthetic Devices or Brace: No Gait Deviations General Gait Pattern Decreased Stride Length, Decreased Feet Clearance Factors Limiting Gait Function Factors Limiting Gait Function Decreased Activity Tolerance, Decreased Strength,Limited Range of Motion,Pain,Poor Balance M5 PT-IP Objective Assessments Start: 04/18/19 11:50 Freq: NEEDED Status: Active Protocol: Document 04/18/19 10:25 AB (Rec: 04/18/19 12:16 AB [id number]) Orientation Orientation/Cognition Level of Alertness Alert Orientation Name,Age,Birthday,Month,Date, Year,Day of Week,Place, Situation Language Function Ability No Deficits Noted Safety Awareness Understands Safety Issues Memory Description No Deficits Noted Gross Range of Motion Lower Extremity ROM Assessment Within Functional Limits Strength Lower Extremity Strength Assessment Right Impaired Hip 3+/5 Knee 4-/5 Coordination Assessment Gross Coordination Gross Coordination WNL Sensation Assessment Sensation Gross Sensation WNL Muscle Tone Muscle Tone WNL Yes M6 PT-IP Treatment Start: 04/18/19 11:50 Freq: NEEDED Status: Active Protocol: Document 04/21/19 09:15 AB (Rec: 04/21/19 12:42 AB [id number]) Physical Therapy Treatment Education Education Provided Precautions,Safety M7 PT-IP Assessment and Plan Start: 04/18/19 11:50 Freq: NEEDED Status: Active Protocol: Document 04/21/19 09:15 AB (Rec: 04/21/19 12:42 AB [id number]) PT Summary Assessment and Plan Potential Rehabilitation Potential Good Summary Impairments Pain,ROM,Strength,Balance,Bed Mobility,Transfers,Gait, Activity Tolerance Progress Towards Goals Progressing Toward Goals Assessment Summary pt progressing with mobility but continues to have increase pain. pt plans to go home and family to assist him. will conduct caregiver training prior to d/c. Goals Bed Mobility Goal Standby Assistance Transfer Goal Standby Assistance,Front Wheeled Walker Gait Goal Standby Assistance,Front Wheel Walker Gait Distance 250 Other Goals up/down 2 steps without rails SBA up/down 10 steps L rail ascending SBA Days to Meet Goals 10 Frequency of Treatment Frequency Of Treatment Twice a Day Treatment Plan Physical Therapy Treatment Plan Bed Mobility Training,Transfer Training,Gait Training, Therapeutic Exercise,Balance Retraining,Post Op Education, Discharge Planning,Hot or Cold Pack,Neuromuscular Re-ed, Coordination Retraining,Manual Therapy Other Recommendations and Next Treatment ambulation Focus Recommendations To Nursing Amount of Assist Needed 1 Person Assist Discharge Recommendations PT Discharge Recommendations Home with Assistance Equipment Needed for Home Before FWW Discharge
[2019-04-21] MEDS: BISACODYL 10 MG SUPP PR (09:35)
--- NOTE | 2019-04-21 11:32 | CM.DPNOTE ---
DCP Cont: Reviewed chart. Pt is now POD# 2 from his second spinal surgery. PT has cleared pt for return home w/family once pt can complete stair training and family completes cg training. Pt seen ambulating in hallway this morning w/walker. Dr Portillo indicates pt will remain here at least 1-2 addtl. days. P: DC home w/spouse and family to assist once medically cleared. ECONOMICS TEACHER team will remain available in case DC needs or concerns arise. MICHI Matos
[2019-04-21] MEDS: ACETAMINOPHEN 325 MG TABLET 650 MG PO ×2 (11:57→20:39)
[2019-04-21] MEDS: HYDROMORPHONE 2 MG TABLET PO (11:57)
[2019-04-21 12:00] VITALS: BP 155/91; PULSE 70; RESP 70; TEMP 36.3; O2SAT 94
[2019-04-21] MEDS: FLEETS ENEMA 1 EACH PR (14:36)
--- NOTE | 2019-04-21 15:10 | PT.IPTN ---
Current Diagnoses Other forms of scoliosis, lumbar region (04/17/19) Spinal stenosis, lumbar region with neurogenic claudication (04/17/19) Surgery Performed Operation Date: 04/17/19 07:45 Actual Procedures p L1-5 anterior instrumented fusion w/posterior interbody fusion at L5S1 - Juanito Portillo MD Operation Date: 04/19/19 07:45 Actual Procedures p T10-S1 instrumented posterior fusion with bone graft - Juanito Portillo MD Physical Therapy Treatment Note M2 PT-IP Current Condition Start: 04/18/19 11:50 Freq: NEEDED Status: Active Protocol: Document 04/20/19 11:15 AB (Rec: 04/20/19 14:07 AB [id number]) Physical Therapy Current Condition Current Condition Evaluation Date 04/20/19 Treatment Diagnosis s/p T10-S1 post. fusion/lami; L1-L5 ant. fusion; difficulty in walking Onset Date 04/17/19 Precautions Lumbar Precautions Log Roll,No Twisting,Limit Bending,Lifting Restriction of 10 lbs,Gait Belt above Incisional Area M3 PT-IP Subjective Start: 04/18/19 11:50 Freq: NEEDED Status: Active Protocol: Document 04/21/19 15:08 LJ (Rec: 04/21/19 15:10 LJ [id number]) Subjective Physical Therapy Visit Type Type Patient Refusal Notes 1300 pt refused due to increased pain 1309 pt refused due to inability to have BM and too much pain after sitting on toilet. M4 PT-IP Mobility and Gait Start: 04/18/19 11:50 Freq: NEEDED Status: Active Protocol: Document 04/21/19 09:15 AB (Rec: 04/21/19 12:42 AB [id number]) PT-Transfer Assessment Sit to and From Stand Sit to and from Stand Standby Assistance Equipment Transfer Assistive Device Gait Belt,Front Wheeled Walker Gait Assessment Gait Gait Assistance Required: Contact Guard Assist Distance (Feet) 200 Able to Maintain Weight Bearing Status Yes During Gait Assistive Devices Assistive Device Gait Belt,Front Wheeled Walker Orthotic/Prosthetic Devices or Brace: No Gait Deviations General Gait Pattern Decreased Stride Length, Decreased Feet Clearance Factors Limiting Gait Function Factors Limiting Gait Function Decreased Activity Tolerance, Decreased Strength,Limited Range of Motion,Pain,Poor Balance M5 PT-IP Objective Assessments Start: 04/18/19 11:50 Freq: NEEDED Status: Active Protocol: Document 04/18/19 10:25 AB (Rec: 04/18/19 12:16 AB [id number]) Orientation Orientation/Cognition Level of Alertness Alert Orientation Name,Age,Birthday,Month,Date, Year,Day of Week,Place, Situation Language Function Ability No Deficits Noted Safety Awareness Understands Safety Issues Memory Description No Deficits Noted Gross Range of Motion Lower Extremity ROM Assessment Within Functional Limits Strength Lower Extremity Strength Assessment Right Impaired Hip 3+/5 Knee 4-/5 Coordination Assessment Gross Coordination Gross Coordination WNL Sensation Assessment Sensation Gross Sensation WNL Muscle Tone Muscle Tone WNL Yes M6 PT-IP Treatment Start: 04/18/19 11:50 Freq: NEEDED Status: Active Protocol: Document 04/21/19 09:15 AB (Rec: 04/21/19 12:42 AB [id number]) Physical Therapy Treatment Education Education Provided Precautions,Safety M7 PT-IP Assessment and Plan Start: 04/18/19 11:50 Freq: NEEDED Status: Active Protocol: Document 04/21/19 09:15 AB (Rec: 04/21/19 12:42 AB [id number]) PT Summary Assessment and Plan Potential Rehabilitation Potential Good Summary Impairments Pain,ROM,Strength,Balance,Bed Mobility,Transfers,Gait, Activity Tolerance Progress Towards Goals Progressing Toward Goals Assessment Summary pt progressing with mobility but continues to have increase pain. pt plans to go home and family to assist him. will conduct caregiver training prior to d/c. Goals Bed Mobility Goal Standby Assistance Transfer Goal Standby Assistance,Front Wheeled Walker Gait Goal Standby Assistance,Front Wheel Walker Gait Distance 250 Other Goals up/down 2 steps without rails SBA up/down 10 steps L rail ascending SBA Days to Meet Goals 10 Frequency of Treatment Frequency Of Treatment Twice a Day Treatment Plan Physical Therapy Treatment Plan Bed Mobility Training,Transfer Training,Gait Training, Therapeutic Exercise,Balance Retraining,Post Op Education, Discharge Planning,Hot or Cold Pack,Neuromuscular Re-ed, Coordination Retraining,Manual Therapy Other Recommendations and Next Treatment ambulation Focus Recommendations To Nursing Amount of Assist Needed 1 Person Assist Discharge Recommendations PT Discharge Recommendations Home with Assistance Equipment Needed for Home Before FWW Discharge
[2019-04-21 15:15] VITALS: BP 156/92; PULSE 67; RESP 16; TEMP 36.4; O2SAT 99
--- NOTE | 2019-04-21 15:18 | OT.IP.TRT ---
Current Diagnoses Other forms of scoliosis, lumbar region (04/17/19) Spinal stenosis, lumbar region with neurogenic claudication (04/17/19) Surgery Performed Operation Date: 04/17/19 07:45 Actual Procedures p L1-5 anterior instrumented fusion w/posterior interbody fusion at L5S1 - Juanito Portillo MD Operation Date: 04/19/19 07:45 Actual Procedures p T10-S1 instrumented posterior fusion with bone graft - Juanito Portillo MD Occupational Therapy Treatment Note OT- Subjective Occupational Therapy Visit Type Type Administrative Note Notes Attempted to see pt for shower today. Pt declined stating that his pain is too high to do a shower. Declined other ADLs. Declined a second check in PM. Will continue to follow .
[2019-04-21] MEDS: HYDROMORPHONE 4 MG TABLET PO ×3 (15:29→23:58)
[2019-04-21 20:18] VITALS: BP 148/88; PULSE 70; RESP 16; TEMP 36.5; O2SAT 96
[2019-04-21] MEDS: AMLODIPINE 5 MG TABLET PO (20:39)
[2019-04-21] MEDS: SENNOSIDES 8.6 MG TABLET 17.2 MG PO (20:40)
[2019-04-21] MEDS: METOPROLOL ER 50 MG TABLET PO (20:40)
[2019-04-21] MEDS: GABAPENTIN 300 MG CAPSULE 600 MG PO (20:40)
[2019-04-21 23:40] VITALS: BP 143/90; PULSE 71; RESP 20; TEMP 36.4; O2SAT 96
[2019-04-22] MEDS: MAGNESIUM HYDROXIDE 30 ML UDC PO (01:48)
[2019-04-22] MEDS: hydrOXYzine pamoate 25 MG CAPSULE PO ×2 (01:48→08:27)
[2019-04-22 04:00] VITALS: BP 148/93; PULSE 68; RESP 22; TEMP 36.7; O2SAT 95
[2019-04-22] MEDS: HYDROMORPHONE 4 MG TABLET PO ×4 (04:19→14:24)
[2019-04-22 08:00] VITALS: BP 145/83; PULSE 65; TEMP 36.5; O2SAT 96
--- NOTE | 2019-04-22 08:01 | PM.PNPO.1 ---
Subjective Subjective Date Patient Seen: 04/22/19 Time Patient Seen: 08:01 Interval history: He was switched over to Dilaudid for pain yesterday. Better pain control but it wears off by about 3 hours. Pain is about 7/10 right now. He is able to get out of bed and mobilize independently. Still working on bowel movement and feels discomfort across the abdomen. However, there is definite bowel rumbling. Exam Vital Signs (past 8 hours): - 04/22/19 04:00 Temperature 98.0 F Pulse Rate 68 Respiratory Rate 22 Blood Pressure 148/93 H Pulse Oximetry 95 Oxygen Delivery Method Room Air Oxygen Flow Rate 0 Const Orientation: alert and oriented x3 Back/Spine/Pelvis Other: CDI for over 24 hours. 5/5 motor both lower extremities Objective Labs Result Diagrams: 04/20/19 06:00 Assessment & Plan Post-op Postoperative Procedures: Procedures Operation Date: 04/17/19 07:45 Actual Procedures Side Surgeon p L1-5 anterior instrumented fusion w/posterior interbody fusion at L5S1 Juanito Portillo MD Operation Date: 04/19/19 07:45 Actual Procedures Side Surgeon p T10-S1 instrumented posterior fusion with bone graft Juanito Portillo MD doing better today with pain control on Dilaudid, although it wears off sooner. He is independent with mobility. Still working on a bowel movement, but not essential prior to discharge home. He wants to go home today. We will remove his Powers and discharged home as long as he is able to urinate. Quality VTE Deep Vein Thrombosis/Pulmonary Embolism Present on Admission: No
--- NOTE | 2019-04-22 08:03 | PM.DS.1 ---
History of Present Illness History of Present Illness Date Patient Seen: 04/22/19 Time Patient Seen: 08:04 Chief complaint: TLIF 04/17 Narrative: 58-year-old male with pain in the back and pain and weakness in his legs. He has stenosis with a scoliotic curvature. He has been through physical therapy and epidural injections without relief. Discharge Providers Provider Date of admission: 04/17/19 06:09 Discharge Date: 04/22/19 Primary care physician: Apolinar Elise MD Consults: 04/19/19 15:33 Consult to Occupational Therapy Evaluate & Treat Comment: Physician Instructions: Evaluate and treat Consult to Physical Therapy Evaluate & Treat Comment: Physician Instructions: Evaluate and Treat Discharge provider: Juanito Portillo MD Summary Hospital Course Discharge Diagnosis: Lumbar stenosis with radiculopathy Lumbar scoliosis Hospital Course: He is brought to the operating room on 04/17/2019 where he underwent a L1 through S1 anterior fusion. He did well on postoperative day 1. Although he was unable to urinate after the catheter was removed. On postoperative day 2, 04/19/2019, he was brought back to the operating room for the posterior half of his surgery with a T10 through S1 posterior instrumented fusion. Pain control was much harder after this. He began mobilizing and was independent by date of discharge. Catheter was removed with the intent to discharge home if he was able to urinate on his own. He still not had a bowel movement but that was not a central prior to discharge after orthopedic surgery. Status at Discharge Cognitive/behavioral status at discharge: oriented Functional status at discharge: uses cane/walker Overall status at discharge: patient is progressing back to baseline Exam Vital Signs (past 8 hours): - 04/22/19 04:00 Temperature 98.0 F Pulse Rate 68 Respiratory Rate 22 Blood Pressure 148/93 H Pulse Oximetry 95 Oxygen Delivery Method Room Air Oxygen Flow Rate 0 Const Orientation: alert and oriented x3 Back/Spine/Pelvis Other: CDI. 5/5 motor both lower extremities Objective Labs Result Diagrams: 04/20/19 06:00 Discharge Plan Discharge Plan Patient Disposition: Home Discharge comment: Follow-up 1.5 weeks Discharge orders & Medications Prescriptions: New celecoxib [Celebrex] 200 mg Capsule 200 mg PO BID PRN (Reason: pain) Qty: 60 RF: 0 docusate sodium [DOK] 100 mg Capsule 100 mg PO BID PRN (Reason: constipation) Qty: 30 RF: 0 hydromorphone 2 mg Tablet See Rx Instructions .ROUTE .COMPLEX PRN (Reason: Pain, Moderate (4-6)) Qty: 40 RF: 0 hydroxyzine pamoate 25 mg Capsule 25 mg PO Q4HR PRN (Reason: spasms) Qty: 20 RF: 0 Continued adalimumab 40 mg/0.8 mL pen injector kit 1 dose Sub-Q Q2W RF: 0 metoprolol succinate 50 mg Tablet Extended Release 24 Hr 50 mg PO BEDTIME RF: 0 amlodipine 5 mg Tablet 5 mg PO BEDTIME RF: 0 gabapentin 300 mg capsule 600 mg PO BEDTIME RF: 0 Follow up/Referrals: Apolinar Elise MD [Primary Care Provider] - Discharge Health Status Multidrug resistant organism: No MDRO Diet/Activity/Treatments Diet: Diet as Tolerated Activity: limited BLT 10 lbs Skin/Wound/Dressing Care Report to your healthcare provider any signs of infection, such as:: chills, fever, night sweats, increased pain, unusual drainage and unusual redness Dressing: may change and shower POD#5 (Tues) Visit Report/Discharge Packet Instructions: DI for Laminectomy, DI for Lateral Lumbar Interbody Fusion, DI for Transforaminal Lumbar Interbody Fusion Stand Alone Forms: Surgery Discharge Discharge Data Primary Care Provider: Apolinar Elise Quality VTE Deep Vein Thrombosis/Pulmonary Embolism Present on Admission: No
[2019-04-22] MEDS: ACETAMINOPHEN 325 MG TABLET 650 MG PO (08:27)
[2019-04-22] MEDS: CELECOXIB 200 MG CAPSULE PO (08:27)
[2019-04-22] MEDS: DOCUSATE 100 MG CAPSULE PO (08:28)
[2019-04-22] MEDS: SODIUM CHLORIDE 0.9% FLUSH 10 ML IV (08:28)
--- NOTE | 2019-04-22 08:35 | PC.NURSE ---
Addendum entered by Luann Doherty R.N. 04/22/19 15:24: Discharge: IV dc'd intact and with good hemostasis. Reviewed all discharge instructions thoroughly with patient and his . Given paper scripts for Dilaudid, Vistaril, Docusate and Celebrex and was given a dose of PO Dilaudid for pain coverage on the ride home. Instructed to call office Tuesday to confirm follow up appt information. Given info on constipation and different OTC meds to help alleviate this problem. Encouraged also to drink plenty of hydrating fluids. Reviewed s/sx with which to call MD. Patient voided again, unmeasured, prior to leaving and again felt no post-void urgency. All personal belongings collected and sent with patient at discharge. Patient and verbalized understanding of all instructions and stated no further questions. Wheeled out to private vehicle accompanied by nursing staff. Addendum entered by Luann Doherty R.N. 04/22/19 14:53: Back dressing was noted to be rolling up at the bottom edge and on one of the sides. This policy writer spoke w/ Dr Portillo to ask what he wanted done and he said to go ahead and replace the dressing. Old dressing removed and replaced with Coversite dressing. Two approx 12 incisions on either side of spine are well-approximated with joe. No active bleeding or drainage noted. Some bruising, but no notable erythema. Dr Portillo said these dressings can be removed in 5 days for patient to shower, then place clean dressings- patient and informed of the same and said they have sufficient dressing supplies at home. Patient's here and working with patient and PT at this time. Addendum entered by Luann Doherty R.N. 04/22/19 13:28: Resting quietly in chair with eyes closed. Appears comfortable, pain 0 on FLACC scale. Respirations regular and unlabored. No s/sx distress or discomfort. Call light and belongings within reach. Addendum entered by Lunan Doherty R.N. 04/22/19 12:11: Voided 400 ml clear yellow urine per urinal. Denies any post-void urgency or discomfort. Medicated with 4 mg PO Dilaudid for 6/10 back pain. Denies other needs at this time. Call light and belongings within reach. Addendum entered by Luann Doherty R.N. 04/22/19 10:55: Back in chair after working w/ physical therapy. Has not voided yet and denies urge at this time. Reports back pain 5/10 and tolerable. plans to be here approx 1500 to do some training with PT before he goes home. Informed charge loader Kessa of the same. Patient agrees to call for assist with ambulation. Call light and belongings within reach. Addendum entered by Luann Doherty R.N. 04/22/19 09:57: Damon dc'd at 0955 (emptied 550 ml UOP at that time). PT in to work with patient now. Original Note: Shift summary: Awake and alert, oriented X3. Sitting up in chair drinking coffee. Not interested in breakfast this morning. Rates back pain 7/10 and was medicated with PO Dilaudid, Tylenol and Vistaril for the same. CMS+, denies paresthesias. Dressings to mid back and L flank C/D/I. Still working on having a good BM. Encouraged ambulation and PO fluid intake. BT+ X4 quad., hypoactive. Denies flatus. Reports feeling bloated. Wanted to wait for pain meds to work prior to removing damon catheter, so we planned to d/c at approx 0900. Able to make needs known, agrees to call for assist with ambulation/activity. Call light and belongings within reach.
--- NOTE | 2019-04-22 10:25 | PT.IPTN ---
Current Diagnoses Other forms of scoliosis, lumbar region (04/17/19) Spinal stenosis, lumbar region with neurogenic claudication (04/17/19) Surgery Performed Operation Date: 04/17/19 07:45 Actual Procedures p L1-5 anterior instrumented fusion w/posterior interbody fusion at L5S1 - Juanito Portillo MD Operation Date: 04/19/19 07:45 Actual Procedures p T10-S1 instrumented posterior fusion with bone graft - Juanito Portillo MD Physical Therapy Treatment Note M2 PT-IP Current Condition Start: 04/18/19 11:50 Freq: NEEDED Status: Active Protocol: Document 04/20/19 11:15 AB (Rec: 04/20/19 14:07 AB [email or web address]) Physical Therapy Current Condition Current Condition Evaluation Date 04/20/19 Treatment Diagnosis s/p T10-S1 post. fusion/lami; L1-L5 ant. fusion; difficulty in walking Onset Date 04/17/19 Precautions Lumbar Precautions Log Roll,No Twisting,Limit Bending,Lifting Restriction of 10 lbs,Gait Belt above Incisional Area M3 PT-IP Subjective Start: 04/18/19 11:50 Freq: NEEDED Status: Active Protocol: Document 04/22/19 10:14 AW (Rec: 04/22/19 10:25 AW [id number]) Subjective Physical Therapy Visit Type Type Treatment Note Visit Start Time 09:52 Visit Stop Time 10:10 Total Visit Minutes 18 Number of [employer] DEVELOPER Visits 0 Physical Therapy Visit Comments Patient Comments Pt still has not had a BM, but pain better controlled and he is willing to work with therapy Therapy Pain Assessment Pain When Pain Assessed During Mobility Pain Present Pain Present Allowed to Sleep Location Back Intensity 5 Scale Used 5/10 at rest; unchanged with mobility Pain Management Techniques Timing of Activity with Medications M4 PT-IP Mobility and Gait Start: 04/18/19 11:50 Freq: NEEDED Status: Active Protocol: Document 04/22/19 10:14 AW (Rec: 04/22/19 10:25 AW [id number]) PT-Transfer Assessment Sit to and From Stand Sit to and from Stand Standby Assistance,Use of Upper Extremities Equipment Transfer Assistive Device Gait Belt,Front Wheeled Walker Transfers Transfer Destination Chair Transfer Technique pt ambulated with FWW Transfer Ability Level of Assist Standby Assistance Comments Mobility Comments Pt refused bed mobility, stating he has been sleeping in the recliner and plans to continue to sleep in a recliner at home. All transfers required no more than SBA. Gait Assessment Gait Gait Assistance Required: Standby Assistance Distance (Feet) 250 Able to Maintain Weight Bearing Status Yes During Gait Assistive Devices Assistive Device Gait Belt,Front Wheeled Walker Orthotic/Prosthetic Devices or Brace: No Gait Deviations General Gait Pattern Decreased Stride Length, Decreased Feet Clearance,Wide Based Gait Factors Limiting Gait Function Factors Limiting Gait Function Decreased Activity Tolerance, Decreased Strength,Limited Range of Motion,Pain,Poor Balance Comments Gait Comments Pt ambulated 250 feet in halls using FWW SBA. He was relaxed and able to carry on a conversation. Stair Climbing Assessment Evaluation Level of Assist On Stairs Standby Assistance Devices Stair Climbing Assistive Devices Right Railing Technique/Endurance Stair Climbing Direction Ascend and Descend Stair Climbing Technique Step to Step Number of Steps Climbed 3 Stair Climbing Set # Repetitions (reps) 1 Comments Stair Climbing Comments Pt completed stair climbing using R rail ascending for balance only. Pt states entry stairs have a wall on the right he can contact for balance. He complained of increased pain descending stairs with step-to pattern. After one set of stairs, pt stated he would not attempt inside stairs at home for several days, noting he has access to everything he needs on the main level. PT-Balance Assessment Sitting Balance and Reactions Static Sitting Balance Ability Normal Dynamic Sitting Balance Ability Good Standing Balance and Reactions Static Standing Balance Ability Good Dynamic Standing Balance Ability Fair M5 PT-IP Objective Assessments Start: 04/18/19 11:50 Freq: NEEDED Status: Active Protocol: Document 04/18/19 10:25 AB (Rec: 04/18/19 12:16 AB [id number]) Orientation Orientation/Cognition Level of Alertness Alert Orientation Name,Age,Birthday,Month,Date, Year,Day of Week,Place, Situation Language Function Ability No Deficits Noted Safety Awareness Understands Safety Issues Memory Description No Deficits Noted Gross Range of Motion Lower Extremity ROM Assessment Within Functional Limits Strength Lower Extremity Strength Assessment Right Impaired Hip 3+/5 Knee 4-/5 Coordination Assessment Gross Coordination Gross Coordination WNL Sensation Assessment Sensation Gross Sensation WNL Muscle Tone Muscle Tone WNL Yes M6 PT-IP Treatment Start: 04/18/19 11:50 Freq: NEEDED Status: Active Protocol: Document 04/22/19 10:14 AW (Rec: 04/22/19 10:25 AW [id number]) Physical Therapy Treatment Education Education Provided Precautions,Safety Other Treatments Other Treatment Performed Pt states he had a FWW delivered to his home yesterday. PT provided education on sizing his walker at home. Also reviewed precautions and safe use of FWW. M7 PT-IP Assessment and Plan Start: 04/18/19 11:50 Freq: NEEDED Status: Active Protocol: Document 04/22/19 10:14 AW (Rec: 04/22/19 10:25 AW [id number]) PT Summary Assessment and Plan Summary Impairments Pain,ROM,Strength,Balance,Bed Mobility,Transfers,Gait, Activity Tolerance Progress Towards Goals Progressing Toward Goals Assessment Summary Pt progressing toward goals with pain better controlled this date. Will conduct caregiver training with pt and his at pm session prior to discharge. Goals Bed Mobility Goal Standby Assistance Transfer Goal Standby Assistance,Front Wheeled Walker Gait Goal Standby Assistance,Front Wheel Walker Gait Distance 250 Other Goals up/down 2 steps without rails SBA up/down 10 steps L rail ascending SBA Days to Meet Goals 10 Frequency of Treatment Frequency Of Treatment Twice a Day Treatment Plan Physical Therapy Treatment Plan Bed Mobility Training,Transfer Training,Gait Training, Therapeutic Exercise,Balance Retraining,Post Op Education, Discharge Planning,Hot or Cold Pack,Neuromuscular Re-ed, Coordination Retraining,Manual Therapy Other Recommendations and Next Treatment caregiver training, stairs Focus Recommendations To Nursing Amount of Assist Needed Standby Assistance Discharge Recommendations PT Discharge Recommendations Home with Assistance Equipment Needed for Home Before FWW - pt states he had one Discharge delivered yesterday
[2019-04-22 11:10] VITALS: BP 146/78; PULSE 68; RESP 16; TEMP 37.2; O2SAT 98
--- NOTE | 2019-04-22 15:48 | PT.IPTN ---
Current Diagnoses Other forms of scoliosis, lumbar region (04/17/19) Spinal stenosis, lumbar region with neurogenic claudication (04/17/19) Surgery Performed Operation Date: 04/17/19 07:45 Actual Procedures p L1-5 anterior instrumented fusion w/posterior interbody fusion at L5S1 - Juanito Portillo MD Operation Date: 04/19/19 07:45 Actual Procedures p T10-S1 instrumented posterior fusion with bone graft - Juanito Portillo MD Physical Therapy Treatment Note M2 PT-IP Current Condition Start: 04/18/19 11:50 Freq: NEEDED Status: Discharge Protocol: Document 04/20/19 11:15 AB (Rec: 04/20/19 14:07 AB [email or web address]) Physical Therapy Current Condition Current Condition Evaluation Date 04/20/19 Treatment Diagnosis s/p T10-S1 post. fusion/lami; L1-L5 ant. fusion; difficulty in walking Onset Date 04/17/19 Precautions Lumbar Precautions Log Roll,No Twisting,Limit Bending,Lifting Restriction of 10 lbs,Gait Belt above Incisional Area M3 PT-IP Subjective Start: 04/18/19 11:50 Freq: NEEDED Status: Discharge Protocol: Document 04/22/19 15:37 AW (Rec: 04/22/19 15:48 AW [id number]) Subjective Physical Therapy Visit Type Type Treatment Note Visit Start Time 14:46 Visit Stop Time 15:00 Total Visit Minutes 14 Number of COVERAGE SPECIALIST Visits 0 Physical Therapy Visit Comments Patient Comments Pt visiting with spouse, getting ready to discharge, happy to work with therapy Therapy Pain Assessment Pain When Pain Assessed During Mobility Pain Present Pain Present Pain Reported Location Back Intensity 5 Pain Management Techniques Timing of Activity with Medications M4 PT-IP Mobility and Gait Start: 04/18/19 11:50 Freq: NEEDED Status: Discharge Protocol: Document 04/22/19 15:37 AW (Rec: 04/22/19 15:48 AW [id number]) PT-Transfer Assessment Sit to and From Stand Sit to and from Stand Standby Assistance,Use of Upper Extremities Equipment Transfer Assistive Device Gait Belt,Front Wheeled Walker Transfers Transfer Destination Chair Transfer Technique pt ambulated with FWW Transfer Ability Level of Assist Standby Assistance Comments Mobility Comments Pt required fewer cues for transfers, able to sequence with good attention to safety. Gait Assessment Gait Gait Assistance Required: Standby Assistance Distance (Feet) 125 Able to Maintain Weight Bearing Status Yes During Gait Assistive Devices Assistive Device Gait Belt,Front Wheeled Walker Orthotic/Prosthetic Devices or Brace: No Gait Deviations General Gait Pattern Decreased Stride Length, Decreased Feet Clearance,Wide Based Gait Comments Gait Comments Pt ambulated 125 feet SBA with FWW to stairs. Spouse present and able to don/doff gait belt and to provide appropriate guarding. Stair Climbing Assessment Evaluation Level of Assist On Stairs Standby Assistance Devices Stair Climbing Assistive Devices Right Railing Technique/Endurance Stair Climbing Direction Ascend and Descend Stair Climbing Technique Step to Step Number of Steps Climbed 3 Stair Climbing Set # Repetitions (reps) 2 Comments Stair Climbing Comments Pt had less pain with descent this visit, requiring no more than SBA. Pt's was able to guard safely with use of gait belt and proper positioning. M5 PT-IP Objective Assessments Start: 04/18/19 11:50 Freq: NEEDED Status: Discharge Protocol: Document 04/18/19 10:25 AB (Rec: 04/18/19 12:16 AB [id number]) Orientation Orientation/Cognition Level of Alertness Alert Orientation Name,Age,Birthday,Month,Date, Year,Day of Week,Place, Situation Language Function Ability No Deficits Noted Safety Awareness Understands Safety Issues Memory Description No Deficits Noted Gross Range of Motion Lower Extremity ROM Assessment Within Functional Limits Strength Lower Extremity Strength Assessment Right Impaired Hip 3+/5 Knee 4-/5 Coordination Assessment Gross Coordination Gross Coordination WNL Sensation Assessment Sensation Gross Sensation WNL Muscle Tone Muscle Tone WNL Yes M6 PT-IP Treatment Start: 04/18/19 11:50 Freq: NEEDED Status: Discharge Protocol: Document 04/22/19 15:37 AW (Rec: 04/22/19 15:48 AW [id number]) Physical Therapy Treatment Education Education Provided Precautions,Safety Other Treatments Other Treatment Performed Repeated education on FWW sizing with pt's present. M7 PT-IP Assessment and Plan Start: 04/18/19 11:50 Freq: NEEDED Status: Discharge Protocol: Document 04/22/19 15:37 AW (Rec: 04/22/19 15:48 AW [id number]) PT Summary Assessment and Plan Potential Rehabilitation Potential Good Summary Impairments Pain,ROM,Strength,Balance,Bed Mobility,Transfers,Gait, Activity Tolerance Assessment Summary Caregiver training conducted with pt and his spouse. She was able to provide appropriate cues and safe guarding. Pt will be safe to discharge home with spouse assist when cleared medically. Goals Bed Mobility Goal Standby Assistance Transfer Goal Standby Assistance,Front Wheeled Walker Gait Goal Standby Assistance,Front Wheel Walker Gait Distance 250 Other Goals up/down 2 steps without rails SBA up/down 10 steps L rail ascending SBA Days to Meet Goals 4 Frequency of Treatment Frequency Of Treatment Twice a Day Treatment Plan Physical Therapy Treatment Plan Bed Mobility Training,Transfer Training,Gait Training, Therapeutic Exercise,Balance Retraining,Post Op Education, Discharge Planning,Hot or Cold Pack,Neuromuscular Re-ed, Coordination Retraining,Manual Therapy Other Recommendations and Next Treatment caregiver training, stairs Focus Recommendations To Nursing Amount of Assist Needed Standby Assistance Discharge Recommendations PT Discharge Recommendations Home with Assistance Equipment Needed for Home Before FWW - pt states he had one Discharge delivered yesterday
== END 2019-04-22 15:39 | disposition home or self-care (01) | DRG 455 ==
PROVIDERS: Admitting Provider Orthopaedic Surgery; PCP Family Medicine; Visit Provider Orthopaedic Surgery
PROC: 0SG00A0 Fusion of Lumbar Vertebral Joint with Interbody Fusion Device, Anterior Approach, Anterior Column, Open Approach (ICD-10-PCS; CPT 22558; principal; 2019-04-17 07:45)
PROC: 0RG7071 Fusion of 2 to 7 Thoracic Vertebral Joints with Autologous Tissue Substitute, Posterior Approach, Posterior Column, Open Approach (ICD-10-PCS; principal; 2019-04-19 07:45)
DX: M41.86 Other forms of scoliosis, lumbar region (principal); M48.062 Spinal stenosis, lumbar region with neurogenic claudication; M41.85 Other forms of scoliosis, thoracolumbar region; I10 Essential (primary) hypertension; K59.00 Constipation, unspecified
CPT/HCPCS: 36415; 72100; 72110; 76000; 82962; 85014; 85018; 94762; 97116; 97161; 97165; 97530; 97535; C1776; J0330; J0595; J0690; J1100; J1170; J2060; J2250; J2274; J2405; J2704; J3010; J3410

== ENCOUNTER 2019-06-12 14:26 | Day surgery (SDC) | payer OTHER, SELFPAY ==
[2019-04-17 06:36] VITALS: BMI 33.1
[2019-06-11 08:35] VITALS: BMI 32.3
[2019-06-12] VITALS (10 sets, daily range): BP systolic 103–137; BP diastolic 64–91; PULSE 58–72; RESP 10–16; TEMP 36.3–36.5; O2SAT 94–100
--- NOTE | 2019-06-12 | DI.RAD.S_ITS ---
PROCEDURE: XR LUMBAR SPINE 2-3V INDICATIONS: S1 SCREW REVISION TECHNIQUE: 2 views of the lumbar spine were acquired. COMPARISON: [facility], CR, XR LUMBAR SPINE MIN 4V, 04/19/2019, 12:34. [facility], CR, XR LUMBAR SPINE 2-3V, 04/17/2019, 9:19. FINDINGS: Bones: Reported S1 screw revision in this patient has undergone prior posterior fusion along the lower lumbosacral spine extending cephalad into the low thoracic spine. Soft tissues: Overlying bowel gas pattern is normal. No suspicious soft tissue calcifications. IMPRESSION: Normal alignment of transverse pedicle screws and vertical fixation rods inferior aspect included on this study, prior interbody disc prosthesis at L5-S1 stable in appearance over time. Dictated by: Clinton Freed M.D. on 06/13/2019 at 8:52 Approved by: Clinton Freed M.D. on 06/13/2019 at 8:54
[2019-06-12] MEDS: LACTATED RINGERS 1,000 ML 42 ML IV ×2 (14:33→17:11)
--- NOTE | 2019-06-12 14:43 | PM.PREOP ---
Pre-operative Note Interval Note History & Physical reviewed/Exam performed by Physician: Yes Changes to H&P: No
--- NOTE | 2019-06-12 14:48 | SUR.PREOP ---
lower back cleaned per protocol with chlorohexidine wash.
--- NOTE | 2019-06-12 14:56 | PM.OP.1 ---
Operative Date/Time/Diagnoses Date of procedure: 06/12/19 Time of procedure: 17:28 Pre-op diagnosis: Loose hardware after lumbar fusion Post-op diagnosis: same Procedure & Clinicians Procedure: Bilateral S1 set screw removal and replacement Same procedure as scheduled: Yes Indications: [age] year old male with right-sided back and leg pain and loose hardware on the right side. It was felt he could benefit with revision of the hardware to stabilize this. Risks and benefits of surgery were discussed and appropriate consents were obtained. Surgeon: Juanito Portillo Click Yes if Unassisted: Yes Anesthesia Type: General Operative Notes Findings: None Closure Type: primary Specimen(s): none sent Prosthetic devices, grafts, tissues, transplants, or devices: Diagonal View Reline system Applied: catheter Estimated Blood Loss (mL): 5 Blood products transfused: none Procedure in detail: Patient brought to the operating room and intubated on the stretcher. He was rolled over the well-padded prone position on the Tai table. The back was prepped and draped in the standard sterile fashion. Time-out was performed. Preoperative antibiotics were given. We opened up the inferior aspect of his well-marked right-sided incision. We used fluoroscopy for localization to come down to the screws with Bovie. When we took fluoroscopy image we realized that the set screw on the left side had come loose as well as S1. The loose right S1 set screw was removed. A tower was placed over the S1 screw and we clamped the buddy back down and locked it with a new set screw. The buddy was still approximately 6 mm past the screw. The wound was irrigated. Fascia was closed, superficial was closed. Skin was closed. We then went over to the left side. A 3 cm incision was made at the bottom of his old incision. Bovie used to split through the fascia. We used fluoroscopy to guide down to the screws. This 1 was more complex. The screw had rotated 90? and the buddy had gone laterally. We had to remove the set screw from L5 to get enough ability to move the buddy. We then had to use a bone hook underneath the buddy to get enough force to lift it up and put in the S1 tulip. The Tulip angled laterally and slid underneath the back edge of his pelvis. We then had to use a Smith to push on the head to move it forward and then rotated around and lift it back up. We then could push down on the buddy while keeping the screw in the correct position and get in the set screw. We then used the torque counter torque to lock down the L5 and S1 screws. The buddy was still approximately 2 mm past the screw. Final x-rays were taken. The wound was irrigated. The fascia, superficial and skin were closed. Sterile dressing was placed. He was then rolled over, extubated, brought to recovery with no complications. Complications: none Post-operative Condition: stable Disposition: PACU Plan for aftercare: Outpatient. Limited BLT.
[2019-06-12] MEDS: CEFAZOLIN 2 GM/100 ML FROZ.PIGGY IV (15:25)
[2019-06-12] MEDS: BUPIVACAINE LIPOSOME 266 MG/20 ML VIAL INJ (15:50)
[2019-06-12] MEDS: VANCOMYCIN 1,000 MG VIAL 1000 MG TOP (15:50)
[2019-06-12] MEDS: BUPIVACAINE 0.25% W/ EPI 30 ML VIAL INJ (15:50)
[2019-06-12] MEDS: SODIUM CHLORIDE 0.9% 1,000 ML, GENTAMICIN 80 MG IRR (15:51)
[2019-06-12] MEDS: OXYCODONE/ACETAMINOPHEN 5/325 TABLET 1 TAB PO ×2 (17:46→18:17)
--- NOTE | 2019-06-12 17:53 | SUR.PHASEI ---
Ben ASHRAF. Patient tolerating po. Denies nausea/pain. Gave po pain medication preemptively for pain.
== END 2019-06-12 18:48 | disposition home or self-care (01) ==
PROVIDERS: PCP Family Medicine; Visit Provider Orthopaedic Surgery
PROC: (CPT 22849; principal; 2019-06-12 16:15)
DX: T84.498A Other mechanical complication of other internal orthopedic devices, implants and grafts, initial encounter (principal); Z98.1 Arthrodesis status; S39.012D Strain of muscle, fascia and tendon of lower back, subsequent encounter
CPT/HCPCS: 22849; 72100; 76000; C1776; C9290; J0690; J2704; J3010

== ENCOUNTER → 2019-06-27 11:43 | Outpatient (CLI) | payer OTHER, SELFPAY ==
[2019-04-17 06:36] VITALS: BMI 33.1
[2019-06-27 12:13] LABS: Add Manual Diff / Slide Review NO; Basophils Absolute Auto 0 /uL (0-100); Basophils Percent Auto 0.3 % (0-2); Eosinophils Absolute Auto 0 /uL (0-450); Eosinophils Percent Auto 0.2 % (2-4); Hematocrit 41.5 % (41-53); Lymphocytes Absolute Auto 2400 /uL (1100-4500); Lymphocytes Percent Auto 21.2 % (25-40); Mean Corpuscular HGB Conc 33.8 % (30-36); Mean Corpuscular Volume 91.8 fL (80-100); Monocytes Absolute Auto 500 /uL (0-900); Monocytes Percent Auto 4.5 % (3-14); Neutrophils Absolute Auto 8500 /uL (1500-7000); Neutrophils Percent Auto 73.8 % (50-75); Platelet Count 339 X10^3/uL (150-400); Red Blood Cell Count 4.52 X10^6/uL (4.5-5.9); Red Cell Distribution Width 13.6 % (11.6-14.8); White Blood Cell Count 11.5 X10^3/uL (4.5-11.0)
== END ==
PROVIDERS: PCP Family Medicine; Referring Provider Orthopaedic Surgery; Visit Provider Orthopaedic Surgery
DX: Z01.812 Encounter for preprocedural laboratory examination (principal)
CPT/HCPCS: 36415; 85025

== ENCOUNTER 2019-07-03 13:37 | Day surgery (SDC) | payer OTHER, SELFPAY ==
[2019-04-17 06:36] VITALS: BMI 33.1
[2019-06-28 11:59] VITALS: BMI 32.3
[2019-07-03] VITALS (14 sets, daily range): BP systolic 119–156; BP diastolic 70–96; PULSE 62–89; RESP 7–19; TEMP 36.6–37; O2SAT 93–100; BMI 32.8
--- NOTE | 2019-07-03 | DI.RAD.S_ITS ---
PROCEDURE: XR T AND L SPINE 2 TO 3 VIEWS INDICATIONS: REVISION SCOLIOSIS FREDDY TECHNIQUE: 2 views acquired of the thoracolumbar spine. COMPARISON: [facility], CR, XR LUMBAR SPINE WITH OLBIQUES PLUS FLEXION EXTENSION, 11/02/2018, 8:54. [facility], CR, XR LUMBAR SPINE 2-3V, 04/17/2019, 9:19. [facility], CR, XR LUMBAR SPINE MIN 4V, 04/19/2019, 12:34. [facility], CR, XR LUMBAR SPINE 2 OR 3 VIEWS, 05/03/2019, 15:46. [facility], CR, XR LUMBAR SPINE 2-3V, 06/12/2019, 18:03. [facility], CR, XR LUMBAR SPINE 2 OR 3 VIEWS, 06/25/2019, 13:57. FINDINGS: Bones: D. prior plain film imaging had shown disengagement of the inferior aspect of one of the 2 Nieto rods, now realigned through the transverse pedicle screw hub. Soft tissues: No suspicious soft tissue calcifications. IMPRESSION: Postoperative imaging shows normal alignment of the Nieto freddy in relationship to the transverse pedicle screw hub which was disengaged 06/25/19. Dictated by: Clinotn Freed M.D. on 07/04/2019 at 8:28 Approved by: Clinton Freed M.D. on 07/04/2019 at 8:43
--- NOTE | 2019-07-03 15:13 | PM.PREOP ---
Pre-operative Note Interval Note History & Physical reviewed/Exam performed by Physician: Yes Changes to H&P: Yes H&P completed within 30 days and has changed as indicated here:: He thinks the right side feels loose again, we will replace both if there is any sign of looseness.
[2019-07-03] MEDS: LACTATED RINGERS 1,000 ML 42 ML IV (15:43)
--- NOTE | 2019-07-03 15:43 | SUR.PREOP ---
Checked on patient periodically, doing well, had updated him regarding the room delay. Played game on his phone throughout the wait. No concerns.
[2019-07-03] MEDS: CEFAZOLIN 2 GM/100 ML FROZ.PIGGY IV (16:14)
[2019-07-03] MEDS: BUPIVACAINE 0.25% W/ EPI 30 ML VIAL 20 ML INJ (16:57)
[2019-07-03] MEDS: VANCOMYCIN 1,000 MG VIAL 1000 MG TOP (16:58)
[2019-07-03] MEDS: BUPIVACAINE LIPOSOME 266 MG/20 ML VIAL INJ (17:00)
[2019-07-03] MEDS: SODIUM CHLORIDE 0.9% 1,000 ML, GENTAMICIN 80 MG IRR (17:04)
[2019-07-03] MEDS: fentaNYL 100 MCG/2 ML INJ IV (18:35)
--- NOTE | 2019-07-03 18:36 | PM.OP.1 ---
Operative Date/Time/Diagnoses Date of procedure: 07/03/19 Time of procedure: 18:36 Pre-op diagnosis: Loose hardware lumbar spine History of lumbar scoliosis fusion Post-op diagnosis: same Procedure & Clinicians Procedure: Left T10 through S1 jeremie exchange Same procedure as scheduled: Yes Indications: 51-year-old male whose had a recent scoliosis fusion. His jeremie had come loose and the bottom screw was reattached. However, everything became loose again after a few days was felt that he needed a much longer jeremie for stability. Risks and benefits of surgery were again discussed and appropriate consent obtained. Surgeon: Juanito Portilol Rotary Cutter: Neris Doty Anesthesia Type: General Operative Notes Findings: None Closure Type: primary Specimen(s): none sent Prosthetic devices, grafts, tissues, transplants, or devices: NuVasive MAS Reline Jeremie Estimated Blood Loss (mL): 30 Procedure in detail: Patient brought to the operating room and intubated on the stretcher. He was rolled over to well-padded prone position on the Tai table. Time-out was performed. Preoperative antibiotics were given. We used fluoroscopy with two views and confirmed that the jeremie on the right side was still locked down. We excised his scar on the left-hand side to get to fresh tissue. We then came down to the L5 and S1 screws. We then began working proximally through the soft tissue with Bovie tracing along the jeremie until we had the entire jeremie exposed. All of the set screws were removed. We took his old jeremie and used as a template for a longer jeremie that was approximately 1.5 cm longer. The jeremie was bent to conform to his back. I tried placing it down but realize that the tip of the jeremie kept hitting the edge of his pelvis and we could not advance it further. We then bent the jeremie more medially and we could place it with 1.5 cm of extension past the S1 screw. Once we had a good alignment of her jeremie we began placing and locking down all of our set screws. Final x-rays were taken confirming extra length of the jeremie at top and bottom as well as again confirming that the jeremie was still locked down on the right side. The wound was irrigated. The fascia was closed in layers. Vancomycin powder was placed in the wound. Superficial skin were closed. Sterile dressing was placed. He was then rolled over, extubated, and brought to the recovery room without complications. Complications: none Post-operative Condition: stable Disposition: PACU Plan for aftercare: Overnight admission.
[2019-07-03] MEDS: hydrOXYzine 50 MG/ML INJ 25 MG IM (18:39)
[2019-07-03] MEDS: OXYCODONE IR 5 MG TABLET 10 MG PO ×2 (19:15→22:57)
[2019-07-03] MEDS: HYDROMORPHONE 0.5 MG INJ IV (21:05)
[2019-07-03] MEDS: LACTATED RINGERS 1,000 ML 125 ML IV (21:09)
[2019-07-03] MEDS: CELECOXIB 200 MG CAPSULE 400 MG PO (21:16)
[2019-07-03] MEDS: DOCUSATE 100 MG CAPSULE PO (21:17)
[2019-07-03] MEDS: GABAPENTIN 600 MG TABLET PO (21:17)
[2019-07-03] MEDS: AMLODIPINE 5 MG TABLET PO (21:17)
[2019-07-03] MEDS: METOPROLOL ER 50 MG TABLET PO (21:18)
[2019-07-03] MEDS: SENNOSIDES 8.6 MG TABLET 17.2 MG PO (21:18)
[2019-07-04] MEDS: CEFAZOLIN 2 GM/100 ML FROZ.PIGGY IV (00:03)
[2019-07-04 00:11] VITALS: BP 122/81; PULSE 87
[2019-07-04] MEDS: OXYCODONE IR 5 MG TABLET 10 MG PO ×3 (02:30→10:06)
[2019-07-04 05:07] VITALS: BP 115/79; PULSE 62; RESP 16; TEMP 36.9; O2SAT 95
--- NOTE | 2019-07-04 07:45 | PM.PNPO.1 ---
Subjective Subjective Date Patient Seen: 07/04/19 Time Patient Seen: 07:45 Interval history: He is doing well. Pain is about a 5, just incisional. The leg pain is much better although his right leg still feels somewhat heavy. He has been in and out of bed and going to the bathroom independently. Exam Vital Signs (past 8 hours): - 07/04/19 00:11 07/04/19 05:07 Temperature 98.4 F Pulse Rate 87 62 Respiratory Rate 16 Blood Pressure 122/81 115/79 Pulse Oximetry 95 Oxygen Delivery Method Room Air Oxygen Flow Rate 0 Const Orientation: alert and oriented x3 Back/Spine/Pelvis Other: Dressing saturated. 5/5 motor both lower extremities Assessment & Plan Post-op Postoperative Procedures: Procedures Operation Date: 07/03/19 15:15 Actual Procedures Side Surgeon p Revision scoliosis buddy Left Juanito Portillo MD he stable and requesting discharge. We'll change his dressing today. He is comfortable changing at home as I expect this will probably lose for the next day or so. If he feels any instability in his back or a pop, he will call up and come in as soon as possible. Otherwise, follow up in 1 and half weeks.
[2019-07-04 07:50] VITALS: BP 120/65; PULSE 56; RESP 18; TEMP 36.6; O2SAT 95
[2019-07-04 08:40] VITALS: BMI 32.8
--- NOTE | 2019-07-04 09:12 | PT.IIE ---
Current Diagnoses Strain of muscle, fascia and tendon of lower back, subsequent encounter (07/03/19) Other mechanical complication of other internal orthopedic devices, implants and grafts, initial encounter (07/03/19) Arthrodesis status (07/03/19) Surgery Performed Operation Date: 07/03/19 15:15 Actual Procedures p Revision scoliosis buddy(Left) - Juanito Portillo MD Surgical History (Last Updated 06/28/19 @ 12:09 by Vy New RN) H/O vasectomy (Acute) History of lumbar fusion (Acute 04/17/19) History of lumbar surgery (Acute 06/12/19) History of uvulopalatopharyngoplasty (Acute) Hx of arthroscopy of left knee (Acute) Hx of arthroscopy of right knee (Acute) Hx of elbow surgery (Acute) Hx of shoulder surgery (Acute) Hx of sinus surgery (Acute) Medical History (Last Updated 07/03/19 @ 13:59 by Vivienne Seaman RN) Back pain with history of spinal surgery (Acute) Colon polyps (Acute) Fatigue (Acute) HLD (hyperlipidemia) (Acute) HTN (hypertension) (Acute) Lumbar radiculopathy (Acute) Ocular migraine (Acute) Osteoarthritis (Acute) Psoriasis, guttate (Acute) Raynaud's syndrome (Acute) Right atrial dilation (Acute) Right ventricular dilation (Acute) Sinus bradycardia (Acute) Physical Therapy Inpatient Evaluation/Re-Eval M1 PT/OT-IP Prior Functional Status Start: 07/04/19 08:22 Freq: NEEDED Status: Active Protocol: Document 07/04/19 08:40 (Rec: 07/04/19 09:12 [id number]) Medical Review Prior Functional Status Medical History Reviewed Yes Diet/Fluid Consistency Regular Communication no deficits noted. Able to make needs known Mobility and Gait Independent with all mobility without AD. Pt was able to climb stairs after his sx in April, Activities of Daily Living and IADL's independent Social History Household Members spouse,children Living Arrangements House Number of Floors (Floors) Two Floors Number of Stairs To Enter/Railing? 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 sx M2 PT-IP Current Condition Start: 07/04/19 08:22 Freq: NEEDED Status: Active Protocol: Document 07/04/19 08:40 HH (Rec: 07/04/19 09:12 [email or web address]) Physical Therapy Current Condition Current Condition Evaluation Date 07/04/19 Treatment Diagnosis T10-S1 buddy exchange, R leg pain, weakness in R leg Onset Date April Lumbar Precautions Log Roll,No Twisting,Limit Bending,Lifting Restriction of 10 lbs,Gait Belt above Incisional Area Weight Bearing Status Weight Bearing Status Weight Bear as Tolerated M3 PT-IP Subjective Start: 07/04/19 08:22 Freq: NEEDED Status: Active Protocol: Document 07/04/19 08:40 HH (Rec: 07/04/19 09:12 [email or web address]) Subjective Physical Therapy Visit Type Type Initial Evaluation Visit Start Time 08:40 Visit Stop Time 08:52 Total Visit Minutes 12 Notes Per RN, pt has been OOB to bathroom by himself without AD . Number of CHILD ABUSE WORKER Visits 0 Physical Therapy Visit Comments Patient Comments Im feeling great today with pain on 3/10 and there's no radiating pain/ numbness to my R leg. Patient Goals To return home with and son. Therapy Pain Assessment Pain When Pain Assessed During Mobility Pain Present Pain Present Pain Reported Location Back Intensity 3 Scale Used Numeric (1 - 10) Description Acute Pain Management Techniques Timing of Activity with Medications M4 PT-IP Mobility and Gait Start: 07/04/19 08:22 Freq: NEEDED Status: Active Protocol: Document 07/04/19 08:40 HH (Rec: 07/04/19 09:12 [id number]) PT-Bed Mobility Assessment Rolling Type of Rolling Log Rolling,Roll to Left Level of Assist Independent Supine to Sit Supine to Sit Independent Sit to Supine Sit to Supine Independent Scooting Scooting to Edge of Bed Independent PT-Transfer Assessment Sit to and From Stand Sit to and from Stand Independent,Use of Upper Extremities Equipment Transfer Assistive Device None Orthotic/Prosthetic Devices or Brace: No Transfers Transfer Destination Bed,Chair Transfer Technique Stand Step Pivot Transfer Ability Level of Assist Independent,Use of Upper Extremities Comments Mobility Comments Pt was up in chair upon PT arrival. Denies any radiating pain and numbness. Pt was able to return to bed and OOB with proper log roll and safe post op body mechanics. Pt transferred from bed to chair with safe stand step pivot with minimal use of hands. He then amb from room to stairs for trials and amb back to room chair to rest. Pt denies any increase in pain/ discomfort. Gait Assessment Gait Gait Assistance Required: Independent Distance (Feet) 220 Able to Maintain Weight Bearing Status Yes During Gait Assistive Devices Assistive Device None Orthotic/Prosthetic Devices or Brace: No Gait Deviations General Gait Pattern Within Normal Limits Factors Limiting Gait Function Factors Limiting Gait Function Limited Range of Motion,Pain Comments Gait Comments Pt amb from his room to [facility] unit and returned back to chair. Pt appears normal gait mechanics without any deviation. He also denies any discomfort while ambulating and appeared well aware of his post op precautions. Stair Climbing Assessment Evaluation Level of Assist On Stairs Independent Devices Stair Climbing Assistive Devices Left Railing Technique/Endurance Stair Climbing Direction Ascend and Descend Stair Climbing Technique Step Over Step Number of Steps Climbed 3 Query Text: Stair Climbing Set # Repetitions (reps) 3 PT-Balance Assessment Sitting Balance and Reactions Static Sitting Balance Ability Normal Dynamic Sitting Balance Ability Normal Standing Balance and Reactions Static Standing Balance Ability Normal Dynamic Standing Balance Ability Normal Device Used none M5 PT-IP Objective Assessments Start: 07/04/19 08:22 Freq: NEEDED Status: Active Protocol: Document 07/04/19 08:40 (Rec: 07/04/19 09:12 [id number]) Orientation Orientation/Cognition Level of Alertness Alert Orientation Name,Age,Birthday,Month,Date, Year,Day of Week,Place, Situation Language Function Ability No Deficits Noted Safety Awareness Understands Safety Issues Memory Description No Deficits Noted Gross Range of Motion Upper Extremity ROM Assessment Right Impaired Impairments limited R ankle DF compared to L. Lack of ~5 degrees Lower Extremity ROM Assessment Within Functional Limits Strength Upper Extremity Strength Assessment Within Functional Limits Lower Extremity Strength Assessment Right Impaired Hip 4+/5 Knee 4/5 Ankle 4-/5 Comments Strength Comments RLE= 5/5 Coordination Assessment Gross Coordination Gross Coordination WNL Sensation Assessment Sensation Gross Sensation WNL Light Touch Intact Proprioception (Position) Intact Muscle Tone Muscle Tone WNL Yes M6 PT-IP Treatment Start: 07/04/19 08:22 Freq: NEEDED Status: Active Protocol: Document 07/04/19 08:40 HH (Rec: 07/04/19 09:12 [email or web address]) Physical Therapy Treatment Education Education Provided Precautions,Weight Bearing Status,Post-Op Packet,Safety M7 PT-IP Assessment and Plan Start: 07/04/19 08:22 Freq: NEEDED Status: Active Protocol: Document 07/04/19 08:40 HH (Rec: 07/04/19 09:12 [id number]) PT Summary Assessment and Plan Potential Rehabilitation Potential Excellent Status of Condition at Evaluation Stable Summary Impairments Pain,ROM,Strength Progress Towards Goals Safe For Discharge Assessment Summary This eval is low complexity for this 59yo male s/p T10-S1 buddy exchange after 2 failed back surgeries from April and May. Upon assessment, pt appears to have intact sensation to touch and pressure on BLEs and ROM, except RLE is slightly weaker than LLE. Pt has 4-/5 for ankle DF and recommended pt to partipate outpatient pt in the future to strengthen his RLE. Pt was well aware of his post op precautions and able to complete all mobility and stair climbing safely independently. Pt is safe to be d/c home with family's assistance now. Frequency of Treatment Frequency Of Treatment Discharge Recommendations To Nursing Amount of Assist Needed Independent Discharge Recommendations PT Discharge Recommendations Home with Assistance Transportation Needs at Discharge Private Vehicle
[2019-07-04] MEDS: DOCUSATE 100 MG CAPSULE PO (09:13)
[2019-07-04] MEDS: CELECOXIB 200 MG CAPSULE PO (09:14)
--- NOTE | 2019-07-04 09:18 | CM.DANOTE ---
DCP: Case received, EMR reviewed and met with patient. Introduced self and role. Was able to meet with patient to obtain baseline health and activity information. DCP assessment completed with information currently available. Patient is a 59 year old male who admitted yesterday morning to the care of the orthopedic team. PCP: Dr. Elise. Payer: confirmed: [facility]. Patient came to the hospital for a surgical procedure. He had L1-5 recent fusion, and had some hardware replacement. Patient has history of scoliosis fusion. Met with patient. He is alert and oriented, eager to go home. He has had recent back surgeries. He is independent at home, resides with his spouse, Yulia, here in [place]. He is employed at the [employer], and is also eager to go back to work. He has not been using any DME supplies prior to surgery. P: Patient has discharge orders for home. He will work with P.T. and should be able to go home when cleared. Josie Agudelo RN/Marketing Support Coordinator
--- NOTE | 2019-07-04 10:00 | OT.IPNOTE ---
Pt being discharged and touched base with pt and states did not have any OT needs as has had prior back surgery and has a supportive .
--- NOTE | 2019-07-04 10:50 | PC.NURSE ---
Pt has received orders to discharge from the care of the hospital and further his rehabilitation at home. Surgical dressing to his back with reinforcement has been changed per doctor order as it had become saturated. 4x4 gauze and 2 abd pads applied with hipafix tape to secure. Discharge instructions have been discussed and prescription for oxycodone provided. Pt had a question in regard to dose amt and he was advised to call Dr. Kelly office. Pt was escorted out of the hospital via wheelchair at approx. 1015 by TONY Woodall.
== END 2019-07-04 10:15 | disposition home or self-care (01) ==
LOC: OR 13:38 → AC 20:07
PROVIDERS: PCP Family Medicine; Referring Provider Family Medicine; Visit Provider Orthopaedic Surgery
PROC: (CPT 22849; principal; 2019-07-03 15:15)
DX: T84.226A Displacement of internal fixation device of vertebrae, initial encounter (principal); Z98.1 Arthrodesis status
CPT/HCPCS: 22849; 72082; 76000; 97161; C1776; C9290; J0330; J0690; J1100; J1170; J2250; J2405; J2704; J3010; J3410

== ENCOUNTER → 2019-10-24 14:05 | Outpatient (CLI) | payer OTHER, SELFPAY ==
[2019-07-03 21:27] VITALS: BMI 32.8
--- NOTE | 2019-10-24 14:10 | DI.CT.S_ITS ---
PROCEDURE: CT LUMBAR SPINE WO CON INDICATIONS: Other forms of scoliosis, lumbar region TECHNIQUE: Noncontrast 3 mm thick sections acquired from the T12 level to the sacrum. Sagittal and coronal reformats were constructed. For radiation dose reduction, the following was used: automated exposure control. COMPARISON: [facility] [place], [place], XR LUMBAR SPINE 2 OR 3 VIEWS, 10/15/2019, 8:49. FINDINGS: Image quality: Excellent. Bones: Postsurgical changes compatible T10-S1 fusion with bilateral pedicle screws and posterior fusion rods are from T10-S1. L1-L2, L2-L3, L3-L4, L4-L5 and L5-S1 interbody fusion noted. Orthopedic hardware is intact. Lucency noted adjacent to the transpedicular screws concerning for loosening or infection. Right L5-S1 facetectomy noted. There is normal bony alignment. No acute vertebral body compression fractures. No suspicious lytic or blastic bony lesions. Degenerative changes and facet arthropathy noted throughout the visualized spine. No significant central canal narrowing. Severe right L5-S1 neuroforaminal narrowing with compression of the exiting right L5 nerve root. Severe left L1-L2 and L2-L3 neuroforaminal narrowing with compression of the exiting L1 and L2 nerve roots. No pars defects. Soft tissues: No retroperitoneal masses or hematomas. Visualized aorta is normal in caliber. IMPRESSION: 1. Postsurgical changes compatible with T10-S1 fusion. 2. Lucency noted adjacent to the S1 transpedicular screws, right greater than left concerning for infection or loosening. 3. Multilevel degenerative disease 4. Multilevel facet arthropathy. 5. No significant central canal narrowing 6. Severe right L5-S1 neural foraminal narrowing with compression of the exiting right L5 nerve root. Severe left L1-L2 no to L3 neural foraminal narrowing with compression of the exiting left L1 and exiting left L2 nerve roots. Dictated by: Venus Renteria MD, PhD on 10/24/2019 at 16:44 Approved by: Venus Renteria MD, PhD on 10/24/2019 at 16:51
== END ==
PROVIDERS: PCP Family Medicine; Referring Provider Orthopaedic Surgery; Visit Provider Orthopaedic Surgery
DX: M41.86 Other forms of scoliosis, lumbar region (principal); M51.36 Other intervertebral disc degeneration, lumbar region; M47.816 Spondylosis without myelopathy or radiculopathy, lumbar region; M48.061 Spinal stenosis, lumbar region without neurogenic claudication; M48.07 Spinal stenosis, lumbosacral region; Z98.1 Arthrodesis status
CPT/HCPCS: 72131

== ENCOUNTER → 2020-06-16 07:40 | Outpatient (CLI) | payer OTHER, SELFPAY ==
[2019-07-03 21:27] VITALS: BMI 32.8
[2020-06-16 08:53] LABS: Add Manual Diff / Slide Review NO; Basophils Absolute Auto 0 /uL (0-100); Basophils Percent Auto 0.6 % (0-2); Eosinophils Absolute Auto 400 /uL (0-450); Eosinophils Percent Auto 5.3 % (2-4); Hemoglobin 14.9 g/dL (13.5-17.5); Lymphocytes Absolute Auto 2600 /uL (1100-4500); Lymphocytes Percent Auto 37.1 % (25-40); Mean Corpuscular Hemoglobin 32.4 PG (26-34); Mean Corpuscular Volume 95.4 fL (80-100); Monocytes Absolute Auto 600 /uL (0-900); Monocytes Percent Auto 8.6 % (3-14); Neutrophils Absolute Auto 3400 /uL (1500-7000); Neutrophils Percent Auto 48.4 % (50-75); Platelet Count 245 X10^3/uL (150-400); Red Blood Cell Count 4.61 X10^6/uL (4.5-5.9); Red Cell Distribution Width 14.3 % (11.6-14.8); White Blood Cell Count 7.1 X10^3/uL (4.5-11.0)
[2020-06-16 09:18] LABS: Alanine Aminotransferase 62 IU/L (<50); Albumin 4.3 g/dL (3.5-5.0); Albumin Globulin Ratio 1.3 (1.0-2.8); Alkaline Phosphatase 65 U/L (38-126); Aspartate Aminotransferase 49 IU/L (17-59); BUN Creatinine Ratio 12.4 (6-22); Bilirubin Total 0.5 mg/dL (0.2-1.3); Bilirubin Unconjugated 0.5 mg/dL (0.0-1.1); Blood Urea Nitrogen 12 mg/dL (9-20); Calcium 9.3 mg/dL (8.4-10.2); Carbon Dioxide 31 mmol/L (22-32); Chloride 102 mmol/L (98-107); Estimated Glomerular Filt Rate > 60.0 mL/min (>60); Globulin 3.3 g/dL (1.7-4.1); Glucose 95 mg/dL (70-100); HEMOLYSIS < 15 (0-50); Potassium 4.3 mmol/L (3.4-5.1); Sodium 138 mmol/L (137-145); Total Protein 7.6 g/dL (6.3-8.2)
[2020-06-18 22:52] LABS: QuantiFERON Mitogen Value 8.07 IU/mL (.); QuantiFERON TB Gold Plus Negative (Negative); QuantiFERON TB1 Ag Value 0.32 IU/mL (.); QuantiFERON TB2 Ag Value 0.31 IU/mL (.)
== END ==
PROVIDERS: PCP Family Medicine; Referring Provider Physician Assistant; Visit Provider Physician Assistant
DX: L40.0 Psoriasis vulgaris (principal)
CPT/HCPCS: 36415; 80053; 80076; 85025; 86480

== ENCOUNTER → 2021-05-15 10:16 | Outpatient (CLI) | payer OTHER, SELFPAY ==
[2019-07-03 21:27] VITALS: BMI 32.8
[2021-05-15 10:43] LABS: Add Manual Diff / Slide Review NO; Basophils Absolute Auto 0 /uL (0-100); Basophils Percent Auto 0.7 % (0-2); Eosinophils Absolute Auto 200 /uL (0-450); Eosinophils Percent Auto 2.9 % (2-4); Hematocrit 45.1 % (41-53); Hemoglobin 15.5 g/dL (13.5-17.5); Lymphocytes Absolute Auto 2800 /uL (1100-4500); Lymphocytes Percent Auto 46.2 % (25-40); Mean Corpuscular HGB Conc 34.4 % (30-36); Mean Corpuscular Hemoglobin 33.4 PG (26-34); Mean Corpuscular Volume 97.2 fL (80-100); Monocytes Absolute Auto 600 /uL (0-900); Monocytes Percent Auto 10.4 % (3-14); Neutrophils Absolute Auto 2400 /uL (1500-7000); Neutrophils Percent Auto 39.8 % (50-75); Platelet Count 218 X10^3/uL (150-400); Red Blood Cell Count 4.64 X10^6/uL (4.5-5.9); Red Cell Distribution Width 14.1 % (11.6-14.8); White Blood Cell Count 6.1 X10^3/uL (4.5-11.0)
[2021-05-15 11:07] LABS: Alanine Aminotransferase 49 IU/L (<50); Albumin 4.7 g/dL (3.5-5.0); Albumin Globulin Ratio 1.5 (1.0-2.8); Alkaline Phosphatase 67 U/L (38-126); Aspartate Aminotransferase 49 IU/L (17-59); BUN Creatinine Ratio 10.3 (6-22); Bilirubin Total 0.7 mg/dL (0.2-1.3); Blood Urea Nitrogen 11 mg/dL (9-20); Calcium 9.7 mg/dL (8.4-10.2); Carbon Dioxide 28 mmol/L (22-32); Chloride 106 mmol/L (98-107); Estimated Glomerular Filt Rate > 60.0 mL/min (>60); Globulin 3.2 g/dL (1.7-4.1); Glucose 100 mg/dL (70-100); HEMOLYSIS < 15 (0-50); Potassium 4.7 mmol/L (3.4-5.1); Sodium 139 mmol/L (137-145); Total Protein 7.9 g/dL (6.3-8.2)
[2021-05-18 12:17] LABS: QuantiFERON Mitogen Value >10.00 IU/mL (.); QuantiFERON Nil Value 0.04 IU/mL (.); QuantiFERON TB Gold Plus Negative (Negative); QuantiFERON TB1 Ag Value 0.08 IU/mL (.); QuantiFERON TB2 Ag Value 0.12 IU/mL (.)
== END ==
PROVIDERS: Referring Provider Physician Assistant; Visit Provider Physician Assistant
DX: L40.0 Psoriasis vulgaris (principal)
CPT/HCPCS: 36415; 80053; 85025; 86480

== ENCOUNTER → 2021-12-01 06:35 | Outpatient (CLI) | payer OTHER, SELFPAY ==
[2019-07-03 21:27] VITALS: BMI 32.8
--- NOTE | 2021-12-01 06:37 | DI.US.S_ITS ---
PROCEDURE: US ABDOMEN LIMITED INDICATIONS: Right upper quadrant pain TECHNIQUE: Real-time focused scanning was performed of the abdomen, with image documentation. COMPARISON: None. FINDINGS: Diffuse moderate hepatic steatosis with focal sparing adjacent to the gallbladder fossa. No focal liver mass. Gallbladder normally distended with no wall thickening or pericholecystic fluid. No sludge or gallstone. Pancreas obscured by bowel gas. No intrahepatic or extrahepatic biliary ductal dilatation. IMPRESSION: Diffuse hepatic steatosis. No findings of cholecystitis or cholelithiasis. Dictated by: Guillermo Sauceda M.D. on 12/01/2021 at 15:14 Approved by: Guillermo Sauceda M.D. on 12/01/2021 at 15:21
== END ==
PROVIDERS: Referring Provider Family Medicine; Visit Provider Family Medicine
DX: R10.11 Right upper quadrant pain (principal); K76.0 Fatty (change of) liver, not elsewhere classified
CPT/HCPCS: 76705

== ENCOUNTER → 2022-06-05 08:45 | Outpatient (CLI) | payer OTHER, SELFPAY ==
[2019-07-03 21:27] VITALS: BMI 32.8
[2022-06-05 10:00] LABS: Add Manual Diff / Slide Review NO; Basophils Absolute Auto 0 /uL (0-100); Basophils Percent Auto 0.6 % (0-2); Eosinophils Absolute Auto 200 /uL (0-450); Hematocrit 44.3 % (41-53); Hemoglobin 15.4 g/dL (13.5-17.5); Lymphocytes Absolute Auto 2400 /uL (1100-4500); Lymphocytes Percent Auto 34.7 % (25-40); Mean Corpuscular HGB Conc 34.7 % (30-36); Mean Corpuscular Hemoglobin 32.3 PG (26-34); Mean Corpuscular Volume 93.1 fL (80-100); Monocytes Absolute Auto 600 /uL (0-900); Neutrophils Absolute Auto 3800 /uL (1500-7000); Neutrophils Percent Auto 53.7 % (50-75); Platelet Count 231 X10^3/uL (150-400); Red Blood Cell Count 4.76 X10^6/uL (4.5-5.9); Red Cell Distribution Width 14.2 % (11.6-14.8)
[2022-06-05 10:32] LABS: Alanine Aminotransferase 55 IU/L (<50); Albumin 4.5 g/dL (3.5-5.0); Albumin Globulin Ratio 1.5 (1.0-2.8); Alkaline Phosphatase 66 U/L (38-126); Aspartate Aminotransferase 43 IU/L (17-59); BUN Creatinine Ratio 12.4 (6-22); Bilirubin Total 0.7 mg/dL (0.2-1.3); Blood Urea Nitrogen 14 mg/dL (9-20); Calcium 9.2 mg/dL (8.4-10.2); Carbon Dioxide 30 mmol/L (22-32); Chloride 102 mmol/L (98-107); Estimated Glomerular Filt Rate > 60 mL/min (>60); Globulin 3.1 g/dL (1.7-4.1); Glucose 86 mg/dL (80-110); HEMOLYSIS < 15 (0-50); Potassium 4.6 mmol/L (3.4-5.1); Sodium 138 mmol/L (137-145); Total Protein 7.6 g/dL (6.3-8.2)
[2022-06-09 13:10] LABS: QuantiFERON Mitogen Value >10.00 IU/mL (.); QuantiFERON Nil Value 0.07 IU/mL (.); QuantiFERON TB Gold Plus Negative (Negative); QuantiFERON TB1 Ag Value 0.08 IU/mL (.); QuantiFERON TB2 Ag Value 0.23 IU/mL (.)
== END ==
PROVIDERS: Referring Provider Nurse Practitioner Adult Health; Visit Provider Nurse Practitioner Adult Health
DX: L40.0 Psoriasis vulgaris (principal)
CPT/HCPCS: 36415; 80053; 85025; 86480

== ENCOUNTER → 2022-10-13 06:57 | Outpatient (CLI) | payer OTHER, SELFPAY ==
[2019-07-03 21:27] VITALS: BMI 32.8
--- NOTE | 2022-10-13 06:58 | DI.CT.S_ITS ---
PROCEDURE: CT ABDOMEN PELVIS W CON INDICATIONS: Right upper quadrant pain TECHNIQUE: After the administration of oral and intravenous contrast, axial sections were acquired from the lung bases to the pubic symphysis. Coronal and sagittal reformats were performed. For radiation dose reduction, the following was used: automated exposure control, adjustment of mA and/or kV according to patient size. COMPARISON:None. FINDINGS: Image quality: Excellent. Lung bases: Unremarkable. Heart: No significant findings. ABDOMEN: Liver: Unremarkable. Gallbladder: Unremarkable. Biliary ducts: Unremarkable. Pancreas: Unremarkable. Spleen: Unremarkable. Adrenal Glands: Unremarkable. Kidneys and Ureters: Unremarkable. Stomach and Bowel: Stomach, small bowel loops, and colon are unremarkable. Normal appendix. Peritoneum: No abnormal intraperitoneal fluid. No free air. Ventral Wall: Fat containing , left-sided lumbar hernia. The neck measures 4.7 centimeters (series 2, image 55). Abdominal Nodes: No retroperitoneal or mesenteric adenopathy by size criteria. Vessels: Aorta and inferior vena cava are normal in size. PELVIS: Pelvic Organs: Unremarkable. Bladder: Circumferential thickening of the urinary bladder, with mild perivesical fat stranding. Pelvic Nodes: No enlarged lymph nodes. Miscellaneous: No inguinal hernias are seen. Bones: Surgical fusion of the thoracolumbar spine. IMPRESSION: Circumferential thickening of the urinary bladder, which may indicate cystitis versus chronic outlet obstruction. Correlate with urinalysis. Wide-mouth, fat containing left-sided lumbar hernia. Normal appendix. No nephrolithiasis. Dictated by: aLnce Zuniga M.D. on 10/13/2022 at 8:46 Approved by: Lance Zuniga M.D. on 10/13/2022 at 8:54
== END ==
PROVIDERS: Referring Provider Family Medicine; Visit Provider Family Medicine
DX: R10.11 Right upper quadrant pain (principal); R53.83 Other fatigue; K44.9 Diaphragmatic hernia without obstruction or gangrene
CPT/HCPCS: 74177; Q9967

== ENCOUNTER 2023-02-17 08:46 | Outpatient (CLI) | payer OTHER, SELFPAY ==
[2019-07-03 21:27] VITALS: BMI 32.8
[2023-02-17] VITALS (8 sets, daily range): BP systolic 114–135; BP diastolic 76–86; PULSE 56–65; RESP 12–23; TEMP 36.3; O2SAT 92–97
--- NOTE | 2023-02-17 08:46 | DI.RAD.S_ITS ---
PROCEDURE: PAIN C/T TRANFORAMINAL INJECT INDICATIONS: SPONDYLOSIS COMPARISON: [facility], MR, MR THORACIC SPINE WITHOUT CONTRAST, 01/14/2023, 6:48. FINDINGS: Fluoroscopic spot filming was performed to verify placement of a spinal needle at the right T9-T10 level(s), as labeled on the films. Appropriate location(s) of the needle tip(s) was confirmed by injection of iodinated contrast. IMPRESSION: Intraprocedural examination within normal limits. Dictated by: Seth Mcgill M.D. on 02/17/2023 at 18:23 Approved by: Seth Mcgill M.D. on 02/17/2023 at 18:24
[2023-02-17] MEDS: MIDAZOLAM 2 MG/2 ML VIAL IV (09:45)
[2023-02-17] MEDS: DEXAMETHASONE 10 MG/ML VIAL 20 MG INJ (09:48)
[2023-02-17] MEDS: iopamidoL 15 ML VIAL 3 ML INJ (09:49)
[2023-02-17] MEDS: BUPIVACAINE 0.25% (PF) VIAL 2 ML INJ (09:49)
--- NOTE | 2023-02-17 10:08 | P.PCN_ITS ---
Date/Time/Diagnoses Date of procedure: 02/17/23 Time of procedure: 10:08 Pre-procedure diagnosis: 1. FORAMINAL STENOSIS WITH RIGHT THORACIC SYMPTOMS Post-procedure diagnosis: same Procedure Notes Procedure: 1. FLUOROSCOPICALLY GUIDED CONTRAST CONTROLLED TRANSFORAMINAL EPIDURAL STEROID INJECTION - RIGHT T9/10 TFESI Indications: Yunier is referred by Dr. Bond for treatment of Foraminal Stenosis with Right Thoracic Symptoms Physician: Ralf Villagran Total Fluoroscopy time (seconds): 16 Total sedation minutes: 20 Complications: none Procedure in detail & Post-procedure care: FINDINGS Foraminal Nerve Root Compression secondary to disc disease and facet hypertrophy DESCRIPTION OF PROCEDURE Following review of allergy and review of potential side effects and complications, including, but not necessarily limited to, infection, allergic reaction, local tissue breakdown, stroke, temporary or permanent nerve injury, paralysis, and possible , the patient indicated that the patient understood and agreed to proceed. An informed consent document was signed by the patient, witnessed by a nurse, and placed in the patient's chart. Additionally, other treatment options including medications, modalities, and physical therapy were reviewed with the patient. After review of previous anaesthesic history and IV conscious sedation the patient was deemed safe to proceed with today?s procedure with IV conscious sedation as ASA class II designation. Safety time-out was performed to confirm patient ID, procedure to be performed and site of procedure. IV sedation was accomplished with a combination of 2mg of Versed was administered by the RN after DO order, titrated to patient comfort during the course of the procedure while the patient remained responsive to all verbal commands In the prone position following sterile prep and drape of the lumbar region, the right T9/10 posterior neuroforamen was identified fluoroscopically. The skin was anesthetized via a 25-gauge 1.5-inch needle with 1% lidocaine solution. At this point, a 25-gauge 3.5-inch spinal needle was atraumatically introduced and advanced under fluoroscopic guidance through the posterior right T9/10 dory roforamen to approximately the anterior aspect of the canal. Depth was confirmed on lateral view. Following negative aspiration, injection of approximately 1.5cc of Isovue 200 under live fluoroscopy in the AP view confirmed excellent flow along the nerve root, into the epidural space without vascular or intrathecal uptake observed Radiological data, including multiple fluoroscopic views reveal the needle placement in the right T9/10 posterior neuroforamen. Subsequent views show flow of contrast material flowing superiorly and inferiorly along the nerve root confirming epidural flow. Subsequently, a test dose of 1.5cc of 1% lidocaine solution was administered and patient was observed for signs or symptoms of complications, including abdominal pain, shortness of breath, bilateral upper or lower extremity weakness, nausea and vomiting, prior to steroid injection. At this point, a total of 2cc or 20mg of dexamethasone was injected without incident. The procedure tolerated the procedure well without signs or symptoms of complications prior to transfer to the recovery area continued monitoring without incident. The patient was then transferred to the recovery area where they were observed for an appropriate time after the injection. The patient reported a VAS score of 7 prior to the procedure and a post- procedure VAS of 0. POST OP INSTRUCTIONS The patient was provided a Pain Log to continue to record their response to the target-specific procedure prior to follow-up visit with their referring physician. Additionally, specific post-injection care instructions and a contact number to our office were provided if concerns arise regarding possible complications associated with the procedure are suspected.
== END 2023-02-17 10:20 | disposition home or self-care (01) ==
PROVIDERS: PCP Family Medicine; Referring Provider Physical Medicine & Rehabilitation; Visit Provider Physical Medicine & Rehabilitation
DX: M51.14 Intervertebral disc disorders with radiculopathy, thoracic region (principal); M48.04 Spinal stenosis, thoracic region
CPT/HCPCS: 64479; 99152; J1100; J2250; J3490

== ENCOUNTER 2023-04-28 08:48 | Outpatient (CLI) | payer OTHER, SELFPAY ==
[2019-07-03 21:27] VITALS: BMI 32.8
[2023-04-28] VITALS (8 sets, daily range): BP systolic 102–139; BP diastolic 59–88; PULSE 59–82; RESP 14–20; TEMP 36.1; O2SAT 93–96
--- NOTE | 2023-04-28 09:15 | DI.RAD.S_ITS ---
PROCEDURE: PAIN C/T INTERLAMINAR INJECT INDICATIONS: RADICULOPATHY COMPARISON: [facility], MR, MR THORACIC SPINE WITHOUT CONTRAST, 01/14/2023, 6:48. [facility], CT, CT LUMBAR SPINE WITHOUT CONTRAST, 01/14/2023, 7:39. FINDINGS: Fluoroscopic spot filming was performed to verify placement of spinal needles at the T9-T10 level(s), as labeled on the films. Appropriate location(s) of the needle tip(s) was confirmed by injection of iodinated contrast. IMPRESSION: Fluoroscopy for pain management. Dictated by: Ephraim Navarro M.D. on 04/28/2023 at 12:10 Approved by: Ephraim Navarro M.D. on 04/28/2023 at 12:11
[2023-04-28] MEDS: MIDAZOLAM 2 MG/2 ML VIAL IV (09:36)
[2023-04-28] MEDS: DEXAMETHASONE 10 MG/ML VIAL 20 MG INJ (09:42)
[2023-04-28] MEDS: iopamidoL 15 ML VIAL 3 ML INJ (09:42)
[2023-04-28] MEDS: BUPIVACAINE 0.25% (PF) VIAL 2 ML INJ (09:42)
--- NOTE | 2023-04-28 09:56 | PM.PROC.IR.1 ---
Date/Time/Diagnoses Date of procedure: 04/28/23 Time of procedure: 09:56 Pre-procedure diagnosis: Thoracic stenosis with HNP Post-procedure diagnosis: same Procedure Notes Procedure: Fluoroscopic guided, contrast controlled T9/10 translaminar epidural steroid injection with conscious sedation. Indications: Yunier is referred by Dr. Castillo for treatment of thoracic DDD/DJD with radiculopathy Physician: Ralf Villagran Total Fluoroscopy time (seconds): 23 Total sedation minutes: 16 Complications: none Procedure in detail & Post-procedure care: DESCRIPTION OF PROCEDURE Fluoroscopic guided, contrast controlled T9/10 translaminar epidural steroid injection with conscious sedation. Following review of allergy review potential side effects and complications, including, but not necessarily limited to, infection, allergic reaction, local tissue breakdown, temporary as well as permanent nerve injury, stroke, paralysis and possible , the patient indicated that they understood and agreed to proceed. An informed consent document was signed by the patient, witnessed by the nurse, and placed in the patient's chart. Additionally other treatment options including modalities, medications and physical therapy were reviewed with the patient. After review of previous anaesthesic history and IV conscious sedation the patient was deemed safe to proceed with today's procedure with IV conscious sedation as ASA class II designation. Safety time-out was performed to confirm patient ID, procedure to be performed and site of procedure. IV sedation was accomplished with a combination of 2mg of Versed administered by the RN after DO order, titrated to patient comfort during the course of the procedure while the patient remained responsive to all verbal commands In the prone position, following sterile prep and drape of the thoracic region the T9/10 translaminar space was identified fluoroscopically. The skin was anesthetized via 25 gauge 1.5inch needle with 1% lidocaine solution. At this point a 22gauge epidural needle was atraumatically introduced and advanced under fluoroscopic guidance into the region of the T8-9 translaminar space depth was confirmed on lateral view. Radiographic data, including multiple fluoroscopic views of the thoracic spine, reveals spinal needle at the T9/10 translaminar space. Lateral views then showed the placement of the needle in the epidural space. Subsequent view show contrast material flowing superiorly and inferiorly in the epidural space. No vascular or intrathecal uptake is observed. At this point using loss of resistance technique with saline and the epidural space was entered. This was confirmed followed negative aspiration and injection of approximately 1.5cc of Isovue 200 showed excellent epidural flow without vascular or intrathecal uptake. At this point, 1 cc of 1% lidocaine solution was admitted as a test dose and the patient was observed for an appropriate period of time without signs or symptoms of complications, including abdominal pain, shortness of breath, bilateral upper and lower extremity weakness, nausea and vomiting, prior to steroid injection. Subsequently, 2cc or 20mg of dexamethasone was then injected without incident. The patient tolerated the procedure well without signs of complications and subsequently was transferred to the recovery room for further monitoring. The patient was then transferred to the recovery area with their observed for an appropriate time after the injection. Patient reported a VAS score of 7 prior to the procedure and post-procedure VAS of 2.
== END 2023-04-28 10:30 | disposition home or self-care (01) ==
LOC: RAD 08:49
PROVIDERS: PCP Family Medicine; Referring Provider Physical Medicine & Rehabilitation; Visit Provider Physical Medicine & Rehabilitation
DX: M48.04 Spinal stenosis, thoracic region (principal); M51.14 Intervertebral disc disorders with radiculopathy, thoracic region; M47.24 Other spondylosis with radiculopathy, thoracic region
CPT/HCPCS: 62321; 99152; J1100; J2250; J3490

== ENCOUNTER → 2023-05-21 08:33 | Outpatient (CLI) | payer OTHER, SELFPAY ==
[2019-07-03 21:27] VITALS: BMI 32.8
[2023-05-21 10:24] LABS: Alanine Aminotransferase 36 IU/L (<50); Albumin 4.5 g/dL (3.5-5.0); Albumin Globulin Ratio 1.4 (1.0-2.8); Alkaline Phosphatase 64 U/L (38-126); Aspartate Aminotransferase 38 IU/L (17-59); BUN Creatinine Ratio 14.6 (6-22); Bilirubin Total 0.9 mg/dL (0.2-1.3); Blood Urea Nitrogen 15 mg/dL (9-20); Calcium 9.9 mg/dL (8.4-10.2); Carbon Dioxide 25 mmol/L (22-32); Chloride 104 mmol/L (98-107); Cholesterol 268 mg/dL (140-199); Estimated Glomerular Filt Rate > 60 mL/min (>60); Globulin 3.2 g/dL (1.7-4.1); Glucose 94 mg/dL (80-110); HDL Cholesterol 51 mg/dL (40-60); HEMOLYSIS 15 (0-50); LDL Cholesterol Calculated 170 mg/dL (<100); Potassium 4.8 mmol/L (3.4-5.1); Sodium 137 mmol/L (137-145); Total Protein 7.7 g/dL (6.3-8.2); Triglycerides 237 mg/dL (35-150)
== END ==
LOC: LAB 08:35
PROVIDERS: PCP Family Medicine; Referring Provider Family Medicine; Visit Provider Family Medicine
DX: I10 Essential (primary) hypertension (principal); E78.5 Hyperlipidemia, unspecified
CPT/HCPCS: 36415; 80053; 80061

== ENCOUNTER → 2024-06-18 07:08 | Outpatient (CLI) | payer OTHER, SELFPAY ==
[2019-07-03 21:27] VITALS: BMI 32.8
--- NOTE | 2024-06-18 07:11 | EKG_ITS ---
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
== END ==
PROVIDERS: PCP Family Medicine; Referring Provider Orthopaedic Surgery Adult Reconstructive Orthopaedic Surgery; Visit Provider Orthopaedic Surgery Adult Reconstructive Orthopaedic Surgery
DX: Z01.818 Encounter for other preprocedural examination (principal)
CPT/HCPCS: 93005

== ENCOUNTER → 2024-06-19 07:12 | Outpatient (CLI) | payer OTHER, SELFPAY ==
[2019-07-03 21:27] VITALS: BMI 32.8
[2024-06-19 08:06] LABS: Add Manual Diff / Slide Review NO; Basophils Absolute Auto 100 /uL (0-100); Basophils Percent Auto 0.7 % (0-2); Eosinophils Absolute Auto 400 /uL (0-450); Eosinophils Percent Auto 4.8 % (2-4); Hemoglobin 15.3 g/dL (13.5-17.5); Lymphocytes Absolute Auto 3200 /uL (1100-4500); Lymphocytes Percent Auto 36.9 % (25-40); Mean Corpuscular HGB Conc 34.8 % (30-36); Mean Corpuscular Hemoglobin 31.9 PG (26-34); Mean Corpuscular Volume 91.7 fL (80-100); Monocytes Absolute Auto 800 /uL (0-900); Monocytes Percent Auto 8.7 % (3-14); Neutrophils Absolute Auto 4300 /uL (1500-7000); Neutrophils Percent Auto 48.9 % (50-75); Platelet Count 219 X10^3/uL (150-400); White Blood Cell Count 8.7 X10^3/uL (4.5-11.0)
[2024-06-19 08:54] LABS: BUN Creatinine Ratio 16.2 (6-22); Blood Urea Nitrogen 16 mg/dL (9-20); Calcium 9.9 mg/dL (8.4-10.2); Carbon Dioxide 24 mmol/L (22-32); Chloride 105 mmol/L (98-107); Estimated Glomerular Filt Rate > 60 mL/min (>60); Glucose 104 mg/dL (80-110); HEMOLYSIS < 15 (0-50); Potassium 4.3 mmol/L (3.4-5.1); Sodium 139 mmol/L (137-145)
[2024-06-19 08:59] LABS: Hemoglobin A1C% w Est Avg Glu 5.1 % (4.0-6.0)
[2024-06-19 09:03] LABS: Prealbumin 33.8 mg/dL (17.6-36.0)
[2024-06-19 09:51] LABS: Vitamin D 25 Hydroxy (D3) 42.6 ng/mL (30.0-100.0)
== END ==
LOC: LAB 07:12
PROVIDERS: PCP Family Medicine; Referring Provider Orthopaedic Surgery Adult Reconstructive Orthopaedic Surgery; Visit Provider Orthopaedic Surgery Adult Reconstructive Orthopaedic Surgery
DX: Z01.812 Encounter for preprocedural laboratory examination (principal); R77.0 Abnormality of albumin; E55.9 Vitamin D deficiency, unspecified; R73.9 Hyperglycemia, unspecified
CPT/HCPCS: 36415; 80048; 82306; 83036; 84134; 85025